=== PATIENT | male | born 1955 | race Hispanic/Latino ===

== ENCOUNTER 2016-12-07 10:30 | Outpatient (CLI) | payer MEDICARE, BC, MEDICAID ==
--- OUTSIDE RECORDS SUMMARY | 2016-12-06 05:46 | XMS REPORT | Continuity of Care Document ---
Author Author [facility] Organization [facility] Address Unknown Phone Unavailable Care Team Providers Care Photograph Tinter Name Role Phone Pao Galvan PCP [phone] Source Comments Some departments are not documenting in the electronic medical record. If you do not see the information that you expected, contact Release of Information in the Health Information Management department at [phone] for further assistance in locating additional records.[facility] Active Allergies and Adverse Reactions No Known Allergies Current Medications Prescription Sig. Disp. Refills Start End Date Status Date calcium acetate (PHOSLO) Take 2,001 mg by mouth Active 667 mg capsule three times daily with meals. 3 caps with meals, 1 cap with snacks Indications: Take 3 capsules c meals and 2 capsules c snacks glipiZIDE (GLUCOTROL) 10 Take 10 mg by mouth Active mg tablet daily. losartan(+) (COZAAR) 100 Take 100 mg by mouth Active mg tablet daily. SODIUM BICARBONATE PO Take 650 mg by mouth Active twice daily. amLODIPine (NORVASC) 10 Take 10 mg by mouth Active mg tablet daily. gabapentin (NEURONTIN) Take 300 mg by mouth Active 300 mg capsule twice daily. insulin detemir(+) Inject 20 Units into 3 box 3 05/07/20 Active (LEVEMIR FLEXTOUCH) 100 area(s) as directed 15 unit/mL (3 mL) injection daily. pen insulin lispro(+) Take 20 units for meals, 60 mL 3 05/07/20 Active (HUMALOG KWIKPEN) 100 and Add a correction 15 unit/mL injection pen factor as follows: add 4 units for glucose 150-200. 201-250, 6 units. 251-300, 8 units. 301-350, 10 units. Higher than 351, 12 units. ONETOUCH ULTRA TEST test 1 Each by Test route 400 Strip 3 05/08/20 Active strip before meals and at 15 bedtime. ONE TOUCH DELICA 33 gauge Use to test blood 4X 150 Each 11 05/08/20 Active misc daily. 15 Blood-Glucose Meter kit Use to test blood sugars 1 Each 0 05/08/20 Active 4X daily One touch ultra 15 II meter. carvedilol (COREG) 12.5 TAKE ONE TABLET BY MOUTH 180 Tab 0 11/15/19 Active mg tablet TWICE DAILY 17 hydrALAZINE (APRESOLINE) Take 25 mg by mouth Active 25 mg tablet daily. brimonidine(+) (ALPHAGAN Apply 1 Drop to both eyes Active P) 0.1 % ophthalmic twice daily. solution prednisolone acetate Apply 1 Drop to both eyes Active (PRED FORTE) 1 % twice daily. ophthalmic suspension brinzolamide(+) (AZOPT) 1 Apply 1 Drop to both eyes Active % ophthalmic suspension twice daily. timolol (TIMOPTIC) 0.5 % Apply 1 Drop to both eyes Active ophthalmic solution daily. ranitidine(+) (ZANTAC) Take 150 mg by mouth 11/22/19 Discontin 150 mg tablet twice daily. 17 ued amitriptyline (ELAVIL) 10 Take 1 Tab by mouth at 30 Tab 5 07/03/20 11/22/19 Discontin mg tablet bedtime daily. 14 17 ued insulin aspart(+) Take 20 units for meals, 6 box 3 05/07/20 Discontin (NOVOLOG) 300 units/3 mL and Add a correction 15 17 ued injection cartridge factor as follows: add 4 units for glucose 150-200. 201-250, 6 units. 251-300, 8 units. 301-350, 10 units. Higher than 351, 12 units. atorvastatin (LIPITOR) 10 TAKE ONE TABLET BY MOUTH 90 Tab 3 05/06/20 11/22/19 Discontin mg tablet ONCE DAILY 16 17 ued carvedilol (COREG) 12.5 TAKE ONE TABLET BY MOUTH 180 Tab 0 07/01/20 11/15/19 Discontin mg tablet TWICE DAILY 16 17 ued Active Problems Problem Noted Date Diabetes mellitus type 2 with complications (HCC) 05/07/2015 Coronary artery disease due to calcified coronary lesion 03/31/2015 Elevated hemidiaphragm 03/19/2015 Overview: right Abnormal stress test 03/19/2015 Ptosis 07/03/2014 Loss of vision 07/03/2014 Transplant recipient 03/23/2014 History of tobacco abuse 08/15/2012 Pre-transplant evaluation for ESRD (end stage renal disease) 08/10/2012 ESRD on hemodialysis (HCC) 06/06/2012 HTN (hypertension) 06/06/2012 Overview: March 03, 2006 Echo ([facility]): Mild conc LVH, EF 50%, diastolic dysfunction, PAP 35mmHg Jul 31, 2011 Echo ([facility]): Left atrial enlargement, trace TR, PAP 28mm Hg. Diabetes mellitus type II, non insulin dependent (HCC) 06/06/2012 Most Recent Encounters Date Type Specialty Providers Description 12/01/2016 Scan Only Transplant Surgery Mady Esparza 11/30/2016 Telephone Transplant Surgery Chelsie Nathan RN Waitlist Maintenance 11/24/2016 Documentation Transplant Surgery Heather Mann 11/24/2016 Telephone Transplant Surgery Chelsie Nathan RN Committee Review 11/23/2016 Committee Transplant Surgery Paras Cuenca MD Review 11/23/2016 Telephone Transplant Surgery Chelsie Nathan RN Other 11/22/2016 [facility] Radiology Irma Mcnair MD Encounter 11/22/2016 [facility] Radiology Irma Mcnair MD Encounter 11/22/2016 [facility] Mike Kim APRN Encounter for other Encounter preprocedural examination 11/22/2016 Office Visit Transplant Surgery William Fabian MD Pre- transplant evaluation Elvin Thompson MD for kidney transplant (Primary Dx) 11/22/2016 Office Visit Transplant Surgery Irma Mcnair MD Pre- transplant evaluation Mike Kim APRN for end stage renal disease (Primary Dx); ESRD (end stage renal disease) (HCC); Preop examination; Screening for diabetes mellitus; Special screening for malignant neoplasm of prostate; Screening for human immunodeficiency virus; Diabetes mellitus type II, non insulin dependent (HCC); Type 2 diabetes mellitus with other kidney complication (HCC) 11/17/2016 Telephone Transplant Surgery Negra Mendez Financial/ Insurance Questions - INSURANCE COVERAGE FINANCIAL INFORMATION 11/17/2016 Telephone Transplant Surgery Negra Mendez 11/15/2016 Refill Cardiology Reg Francis MD Medication Refill 11/01/2016 Scan Only Transplant Surgery Mady Esparza 10/25/2016 Telephone Transplant Surgery Chelsie Nathan RN Other - Waitlist Status Review 10/20/2016 Orders Only Transplant Surgery Shahla Anderson RN Pre- transplant evaluation for end stage renal disease (Primary Dx) 10/20/2016 Telephone Transplant Surgery Shahla Anderson RN Other - erroneous encounter 10/19/2016 Documentation Transplant Surgery Heather Mann 10/18/2016 Telephone Transplant Surgery Shahla Anderson RN Other - Waitlist Review Letter 10/14/2016 Documentation Transplant Surgery MikeRebeca [email or web address] 10/12/2016 Documentation Transplant Surgery Heather Mann 09/22/2016 Telephone Cardiology Stella Quinn RN Medication Refill - Hydralazine - deferred to PCP to fill 09/21/2016 Refill Cardiology Bouchra Yeh LPN Erroneous encounter-disregard Social History Tobacco Use Types Packs/Day Years Used Date Former Smoker Cigarettes 0.25 25 Quit: 08/10/2010 Smokeless Tobacco: Never Used Tobacco Cessation: Counseling Given: No Comments: Alcohol Use Drinks/Week oz/Week Comments No hx social drinking Last Filed Vital Signs Vital Sign Reading Time Taken Blood Pressure 118/61 11/22/2016 7:59 AM PATROL JUDGE Pulse 85 11/22/2016 7:59 AM PATROL JUDGE Temperature 36.9 C (98.4 F) 11/22/2016 7:58 AM PATROL JUDGE Respiratory Rate - - Height 1.676 m (5' 6") 11/22/2016 7:58 AM PATROL JUDGE Weight 97.478 kg (214 lb 14.4 11/22/2016 7:58 AM PATROL JUDGE oz) Body Mass Index 34.7 11/22/2016 7:58 AM PATROL JUDGE Oxygen Saturation 95% 11/22/2016 7:58 AM PATROL JUDGE Plan of Care Date Type Specialty Providers Description 01/05/2017 Appointment Gastroenterology Alysha Chase MD [address] [facility] [address] [place] [address] [phone] (Fax) Health Maintenance Due Date Last Done Comments Physical (Comprehensive) 1962 Exam Pertussis Vaccine 1966 Tetanus Vaccine 1972 Microalbumin 1973 Pneumonia Vaccine (Dm) 1973 Colorectal Cancer 2005 Screening Shingles Vaccine 2015 Dilated Eye Exam 04/23/2016 04/23/2015 (Previously completed) Influenza Vaccine 07/14/2016 Foot Exam 07/16/2016 07/16/2015, 05/07/2015, 05/07/2015 Hba1c 05/22/2017 11/22/2016, 07/16/2015, 05/07/2015 Additional history exists Hepatitis C Screening Completed 11/22/2016, 10/02/2012 Results from Last 3 Months CHEST 2 VIEWS (11/22/2016 12:47 PM) Impressions Stable elevation of right hemidiaphragm with right pleural thickening. No radiographic evidence of acute cardiopulmonary disease. Finalized by Lorna Link M.D. on 11/22/2016 12:58 PM. Dictated by Lorna Link M.D. on 11/22/2016 12:56 PM. Narrative CHEST 2 VIEWS Indication: Pre transplant. Comparison: January 27, 2015 Findings: The heart and pulmonary vasculature are unremarkable. There is stable elevation of the right hemidiaphragm with blunting of the right costophrenic angle compatible with pleural thickening. No consolidative infiltrate, gross pleural effusion or pneumothorax is identified. There are degenerative changes in the thoracic spine. Procedure Note Interface, Radiant Results - Tue Nov 22, 2016 1:01 PM PATROL JUDGE CHEST 2 VIEWS Indication: Pre transplant. Comparison: January 27, 2015 Findings: The heart and pulmonary vasculature are unremarkable. There is stable elevation of the right hemidiaphragm with blunting of the right costophrenic angle compatible with pleural thickening. No consolidative infiltrate, gross pleural effusion or pneumothorax is identified. There are degenerative changes in the thoracic spine. IMPRESSION Stable elevation of right hemidiaphragm with right pleural thickening. No radiographic evidence of acute cardiopulmonary disease. Finalized by Lorna Link M.D. on 11/22/2016 12:58 PM. Dictated by Lorna Link M.D. on 11/22/2016 12:[address] ABD/PELV WO CONTRAST (11/22/2016 12:35 PM) Impressions 1. No significant aortoiliac calcified plaque. 2. Bilateral renal atrophy consistent with the patient's end-stage renal disease. 3. Coronary artery disease. Finalized by Marva Strauss M.D. on 11/22/2016 1:00 PM. Dictated by Marva Strauss M.D. on 11/22/2016 12:[address] ABDOMEN AND PELVIS Clinical Indication:Male, 61 years old. End-stage renal disease, pretransplant evaluation. Technique: Multiple contiguous axial CT images were obtained through the abdomen and pelvis without IV contrast. Post processing coronal and sagittal reconstruction images were made from the axial images. IV contrast: None. Bowel contrast:None. Comparison: January 27, 2015. FINDINGS: Limited evaluation without the use of IV contrast which includes the viscera and vasculature. Lower Thorax: There is chronic elevation of the right hemidiaphragm. No pleural effusion or basilar area of consolidation is identified. Coronary arterial and mitral annular calcification is noted. Liver and Biliary system: The liver is unremarkable. Gallbladder is nondilated. Spleen: Unremarkable. Adrenal Glands and Kidneys: The adrenal glands are unremarkable. There is bilateral renal atrophy without hydronephrosis. Low-density bilateral renal lesions are likely cysts, though incompletely evaluated without contrast. Pancreas and Retroperitoneum: The pancreas is unremarkable. No enlarged retroperitoneal lymph nodes are seen. Aorta and Major Vessels: Aortoiliac vessels are normal caliber without significant calcified plaque identified. Bowel, Mesentery and Peritoneal space: Large and small bowel is normal caliber. Mild distal colonic diverticulosis is identified. No ascites is identified. Previous appendectomy is noted. Pelvis: The prostate is mildly enlarged. The bladder is decompressed and poorly evaluated. No enlarged pelvic lymph nodes are seen. Abdominal wall and Osseous Structures: Small bilateral fat-containing inguinal hernias are noted. There is mild bilateral symmetric gynecomastia. No destructive osseous lesion is identified. Sclerotic foci within the left iliac wing are unchanged and likely bone islands. Procedure Note Interface, Radiant Results - Tue Nov 22, 2016 1:[address] ABDOMEN AND PELVIS Clinical Indication: Male, 61 years old. End-stage renal disease, pretransplant evaluation. Technique: Multiple contiguous axial CT images were obtained through the abdomen and pelvis without IV contrast. Post processing coronal and sagittal reconstruction images were made from the axial images. IV contrast: None. Bowel contrast: None. Comparison: January 27, 2015. FINDINGS: Limited evaluation without the use of IV contrast which includes the viscera and vasculature. Lower Thorax: There is chronic elevation of the right hemidiaphragm. No pleural effusion or basilar area of consolidation is identified. Coronary arterial and mitral annular calcification is noted. Liver and Biliary system: The liver is unremarkable. Gallbladder is nondilated. Spleen: Unremarkable. Adrenal Glands and Kidneys: The adrenal glands are unremarkable. There is bilateral renal atrophy without hydronephrosis. Low-density bilateral renal lesions are likely cysts, though incompletely evaluated without contrast. Pancreas and Retroperitoneum: The pancreas is unremarkable. No enlarged retroperitoneal lymph nodes are seen. Aorta and Major Vessels: Aortoiliac vessels are normal caliber without significant calcified plaque identified. Bowel, Mesentery and Peritoneal space: Large and small bowel is normal caliber. Mild distal colonic diverticulosis is identified. No ascites is identified. Previous appendectomy is noted. Pelvis: The prostate is mildly enlarged. The bladder is decompressed and poorly evaluated. No enlarged pelvic lymph nodes are seen. Abdominal wall and Osseous Structures: Small bilateral fat-containing inguinal hernias are noted. There is mild bilateral symmetric gynecomastia. No destructive osseous lesion is identified. Sclerotic foci within the left iliac wing are unchanged and likely bone islands. IMPRESSION 1. No significant aortoiliac calcified plaque. 2. Bilateral renal atrophy consistent with the patient's end-stage renal disease. 3. Coronary artery disease. Finalized by Marva Strauss M.D. on 11/22/2016 1:00 PM. Dictated by Marva Strauss M.D. on 11/22/2016 12:49 PM. GGTP (11/22/2016 11:54 AM) Component Value Range GGTP 17 9-64 U/L Specimen Blood RED TOP TUBE FOR MTN TRANSPLANT (11/22/2016 11:54 AM) Specimen Blood LIPASE (11/22/2016 11:54 AM) Component Value Range Lipase 773 (H) 11-82 U/L Specimen Blood AMYLASE (11/22/2016 11:54 AM) Component Value Range Amylase 225 (H) 24-100 U/L Specimen Blood HEMOGLOBIN A1C (11/22/2016 11:54 AM) Component Value Range Hemoglobin A1C 7.3 (H)Comment: 4.0-6.0 % The ADA recommends that most patients with type 1 and type 2 diabetes maintain an A1c level <7%. Specimen Blood PHENCYCLIDINES-URINE RANDOM (11/22/2016 11:54 AM) Component Value Range Phencyclidine (PCP) NEGComment: NEG-NEG RESULTS WERE OBTAINED BY IMMUNOASSAY AND ARE PRESUMPTIVE ONLY. POSITIVE INDICATES THE PRESENCE OF SUBSTANCE WITH CHARACTERISTICS SIMILAR TO DRUG-DRUG CLASS OR METABOLITE IN CONC. EQUAL TO OR EXCEEDING VALUES LISTED. PHENCYCLIDINE (PCP) 25 NG/ML Specimen Urine OPIATES-URINE RANDOM (11/22/2016 11:54 AM) Component Value Range Opiates-Urine NEGComment: NEG-NEG RESULTS WERE OBTAINED BY IMMUNOASSAY AND ARE PRESUMPTIVE ONLY. POSITIVE INDICATES THE PRESENCE OF SUBSTANCE WITH CHARACTERISTICS SIMILAR TO DRUG-DRUG CLASS OR METABOLITE IN CONC. EQUAL TO OR EXCEEDING VALUES LISTED. OPIATES 200 0 NG/ML Specimen Urine COCAINE-URINE RANDOM (11/22/2016 11:54 AM) Component Value Range Cocaine-Urine NEGComment: NEG-NEG RESULTS WERE OBTAINED BY IMMUNOASSAY AND ARE PRESUMPTIVE ONLY. POSITIVE INDICATES THE PRESENCE OF SUBSTANCE WITH CHARACTERISTICS SIMILAR TO DRUG-DRUG CLASS OR METABOLITE IN CONC. EQUAL TO OR EXCEEDING VALUES LISTED. COCAINE 300 NG/ML Specimen Urine CANNABINOIDS-URINE RANDOM (11/22/2016 11:54 AM) Component Value Range THC NEGComment: NEG-NEG RESULTS WERE OBTAINED BY IMMUNOASSAY AND ARE PRESUMPTIVE ONLY. POSITIVE INDICATES THE PRESENCE OF SUBSTANCE WITH CHARACTERISTICS SIMILAR TO DRUG-DRUG CLASS OR METABOLITE IN CONC. EQUAL TO OR EXCEEDING VALUES LISTED. CANNABINOIDS 50 NG/ML Specimen Urine BENZODIAZEPINES-URINE RANDOM (11/22/2016 11:54 AM) Component Value Range Benzodiazepines NEGComment: NEG-NEG RESULTS WERE OBTAINED BY IMMUNOASSAY AND ARE PRESUMPTIVE ONLY. POSITIVE INDICATES THE PRESENCE OF SUBSTANCE WITH CHARACTERISTICS SIMILAR TO DRUG-DRUG CLASS OR METABOLITE IN CONC. EQUAL TO OR EXCEEDING VALUES LISTED. BENZODIAZEPINES 200 NG/ML Specimen Urine BARBITURATES-URINE RANDOM (11/22/2016 11:54 AM) Component Value Range Barbiturates,Urine NEGComment: NEG-NEG RESULTS WERE OBTAINED BY IMMUNOASSAY AND ARE PRESUMPTIVE ONLY. POSITIVE INDICATES THE PRESENCE OF SUBSTANCE WITH CHARACTERISTICS SIMILAR TO DRUG-DRUG CLASS OR METABOLITE IN CONC. EQUAL TO OR EXCEEDING VALUES LISTED. BARBITURATES 200 NG/ML Specimen Urine AMPHETAMINES-URINE RANDOM (11/22/2016 11:54 AM) Component Value Range Amphetamines NEGComment: NEG-NEG RESULTS WERE OBTAINED BY IMMUNOASSAY AND ARE PRESUMPTIVE ONLY. POSITIVE INDICATES THE PRESENCE OF SUBSTANCE WITH CHARACTERISTICS SIMILAR TO DRUG-DRUG CLASS OR METABOLITE IN CONC. EQUAL TO OR EXCEEDING VALUES LISTED. AMPHETAMINES 1000 NG/ML Specimen Urine PSA SCREEN (11/22/2016 11:54 AM) Component Value Range PSA Screen 2.08 <4.0 NG/ML Specimen Blood URINALYSIS, MICROSCOPIC (11/22/2016 11:54 AM) Component Value Range WBCs,UA 0-2 0-2 /HPF RBCs,UA 2-10 0-3 /HPF MucousUA TRACE Specimen Urine URINALYSIS DIPSTICK (11/22/2016 11:54 AM) Component Value Range Color,UA YELLOW Turbidity,UA CLEAR CLEAR-CLEAR Specific [place]-Urine 1.012 1.003-1.035 pH,UA 8.0 5.0-8.0 Protein,UA 3+ (A) NEG-NEG Glucose,UA 2+ (A) NEG-NEG Ketones,UA NEG NEG-NEG Bilirubin,UA NEG NEG-NEG Blood,UA NEG NEG-NEG Urobilinogen,UA NORMAL NORM-NORMAL Nitrite,UA NEG NEG-NEG Leukocytes,UA NEG NEG-NEG Urine Ascorbic Acid, UA NEG NEG-NEG Specimen Urine SYPHILIS AB SCREEN (11/22/2016 11:54 AM) Component Value Range Syphilis AB, Total NEGComment: NEG-NEG Negative EIA: Negative results indicate no past or present syphilis infection. Early infection can not be excluded. Specimen Blood PROTIME INR (PT) (11/22/2016 11:54 AM) Component Value Range INR 1.1 0.8-1.2 Specimen Blood PHOSPHORUS (11/22/2016 11:54 AM) Component Value Range Phosphorus 5.8 (H) 2.0-4.0 MG/DL Specimen Blood HSV I/II GLYCOPROTEIN G AB (11/22/2016 11:54 AM) Component Value Range HSV Type 1 IgG POS (A) NEG-NEG HSV Type 2 IgG NEG NEG-NEG Specimen Blood HIV AB SCREEN(1 AND 2) (11/22/2016 11:54 AM) Component Value Range HIV 1 and 2 AG AB Screen NEG NEG-NEG Specimen Blood HEPATITIS C AB (11/22/2016 11:54 AM) Component Value Range Anti HCV NEG Specimen Blood HEPATITIS B SURFACE AG (11/22/2016 11:54 AM) Component Value Range HBsAg NEG Specimen Blood HEPATITIS B SURFACE AB (11/22/2016 11:54 AM) Component Value Range Anti HBs 3.2Comment: mIU/ml Hepatitis B Surface Antibody Reference Ranges >12.0 Positive 8.0-12.0 Equivocal <8.0 Negative Specimen Blood HEPATITIS B CORE AB TOT (IGG+IGM) (11/22/2016 11:54 AM) Component Value Range Anti HBc Total NEG Specimen Blood [place]AN [place] PANEL(EBV) (11/22/2016 11:54 AM) Component Value Range EBV Capsid IgG POS EBV Nuclear Ag,Ab POS EBV Early Ag,Ab NEG EBV Capsid IgM NEG Specimen Blood COMPREHENSIVE METABOLIC PANEL (11/22/2016 11:54 AM) Component Value Range Sodium 138 137-147 MMOL/L Potassium 4.6 3.5-5.1 MMOL/L Chloride 94 (L) 98-110 MMOL/L Glucose 142 (H) 70-100 MG/DL Blood Urea Nitrogen 43 (H) 7-25 MG/DL Creatinine 7.15 (H) 0.4-1.24 MG/DL Calcium 8.8 8.5-10.6 MG/DL Total Protein 7.9 6.0-8.0 G/DL Total Bilirubin 0.4 0.3-1.2 MG/DL Albumin 4.3 3.5-5.0 G/DL Alk Phosphatase 68 25-110 U/L AST (SGOT) 17 7-40 U/L CO2 34 (H) 21-30 MMOL/L ALT (SGPT) 22 7-56 U/L Anion Gap 10 3-12 eGFR Non 8 (L)Comment: >60 mL/min The eGFR is not validated for use in drug dosing adjustments. Continue to use estimated creatinine clearance per dosing reference text. Please contact the Clinical Pharmacist for questions. eGFR 9 (L)Comment: >60 mL/min The eGFR is not validated for use in drug dosing adjustments. Continue to use estimated creatinine clearance per dosing reference text. Please contact the Clinical Pharmacist for questions. Specimen Blood CMV AB IGM (11/22/2016 11:54 AM) Component Value Range CMV, IgM NEG Specimen Blood CMV AB IGG (11/22/2016 11:54 AM) Component Value Range CMV, IgG POS Specimen Blood CBC AND DIFF (11/22/2016 11:54 AM) Component Value Range White Blood Cells 6.5 4.5-11.0 K/UL RBC 3.55 (L) 4.4-5.5 M/UL Hemoglobin 11.3 (L) 13.5-16.5 GM/DL Hematocrit 34.7 (L) 40-50 % MCV 97.7 80-100 FL MCH 31.9 26-34 PG MCHC 32.7 32.0-36.0 G/DL RDW 14.6 11-15 % Platelet Count 159 150-400 K/UL MPV 8.4 7-11 FL Neutrophils 44 41-77 % Lymphocytes 42 24-44 % Monocytes 10 4-12 % Eosinophils 3 0-5 % Basophils 1 0-2 % Absolute Neutrophil Count 2.90 1.8-7.0 K/UL Absolute Lymph Count 2.70 1.0-4.8 K/UL Absolute Monocyte Count 0.60 0-0.80 K/UL Absolute Eosinophil Count 0.20 0-0.45 K/UL Absolute Basophil Count 0.00 0-0.20 K/UL Specimen Blood
[~2016-12-07] VITALS: Ht 167.6 cm; Wt 95.3 kg
[~2016-12-07 10:30] MED LIST: ACET1TAB12; ACYC800T PO; AMLO10TA PO; AMLO10TA4; AZTH250C PO; BENZ200C25 PO; BRIM5DRO12 OP; BRIM5DRO12 OU; BUTA1TAB55 PO; CALC0.253; CALC0.5C2 PO; CALC500T47 PO; CALC667C PO; CALCIUM ACETATE PO; CARV6.252 PO; CLN.1T; CSPT25 OD; CYCL10TA9 PO; DORZ10DR19 OD; FERR27TA PO; FLT05NA16 NS; GABA-488 PO; GENT3.5O18 OU; GLIP10TA13 PO; GLIP2.5T9 PO; HYDR-707 PO; HYDR118S10 PO; INSU100I13 SQ; INSU100I29 SQ; LATA2.5D5 OU; LEVO250T PO; LISI-556; LISI20TA; LISI20TA2; LOSA100T7 PO; LOSA50TA6 PO; METF-380; METO-354; METR250T PO; MTP25TSR PO; NAPR-243 PO; NF-PREG50C PO; NORT25CA PO; OMEP20CA12 PO; ONDA8TAB13 PO; ONDA8TAB6; OSLT75CRX PO; PRD20T PO; PROM5SYR PO; PROP10DR3 OP; RANI150C11 PO; SODIUM BICAR; SODIUM BICARB; TIMO10DR; TRM50T
--- OUTSIDE RECORDS SUMMARY | 2016-12-07 10:56 | XMS REPORT | Continuity of Care Document ---
Author Author [facility] Organization [facility] Address Unknown Phone Unavailable Care Team Providers Care Powder Line Repairer Name Role Phone Pao Galvan PCP [phone] Source Comments Some departments are not documenting in the electronic medical record. If you do not see the information that you expected, contact Release of Information in the Health Information Management department at [phone] for further assistance in locating additional records.[facility] Active Allergies and Adverse Reactions No Known [...] (hypertension) 06/06/2012 Overview: March 03, 2006 Echo ([facility]): Mild conc LVH, EF 50%, diastolic dysfunction, PAP 35mmHg Jul 31, 2011 Echo ([facility]): Left atrial enlargement, trace TR, PAP [...] Transplant Surgery Chelsie Nathan RN Other 11/22/2016 [facility] Radiology Irma Mcnair MD Encounter 11/22/2016 [facility] Radiology Irma Mcnair MD Encounter 11/22/2016 [facility] Mike Kim APRN Encounter for other [...] Taken Blood Pressure 118/61 11/22/2016 7:59 AM CPA TAX Pulse 85 11/22/2016 7:59 AM CPA TAX Temperature 36.9 C (98.4 F) 11/22/2016 7:58 AM CPA TAX Respiratory Rate - - Height 1.676 m (5' 6") 11/22/2016 7:58 AM CPA TAX Weight 97.478 kg (214 lb 14.4 11/22/2016 7:58 AM CPA TAX oz) Body Mass Index 34.7 11/22/2016 7:58 AM CPA TAX Oxygen Saturation 95% 11/22/2016 7:58 AM CPA TAX Plan of Care Date Type Specialty Providers Description 01/05/2017 Appointment Gastroenterology Alysha Chase MD [address] [facility] [address] [place] [address] [phone] (Fax) Health Maintenance Due Date Last Done [...] - Tue Nov 22, 2016 1:01 PM CPA TAX CHEST 2 VIEWS Indication: Pre transplant. Comparison: [...] - Tue Nov 22, 2016 1:[address] ABDOMEN AND PELVIS Clinical Indication: Male, [...] Range Color,UA YELLOW Turbidity,UA CLEAR CLEAR-CLEAR Specific [place]-Urine 1.012 1.003-1.035 pH,UA 8.0 5.0-8.0 Protein,UA 3+ [...]
== END 2016-12-07 10:54 ==
LOC: PREOP 10:30
PROVIDERS: ATTEND Surgery
DX: Z01.818 Encounter for other preprocedural examination (principal); Z12.11 Encounter for screening for malignant neoplasm of colon

== ENCOUNTER 2016-12-08 08:15 | Day surgery (SDC) | payer MEDICARE, MEDICAID ==
[~2016-12-08] VITALS: Ht 167.6 cm; Wt 95.3 kg
--- OUTSIDE RECORDS SUMMARY | 2016-12-08 08:21 | XMS REPORT | Continuity of Care Document ---
Author Author [facility] Organization [facility] Address Unknown Phone Unavailable Care Team Providers Care Staff Forester Name Role Phone Pao Galvan PCP [phone] Source Comments Some departments are not documenting in the electronic medical record. If you do not see the information that you expected, contact Release of Information in the Health Information Management department at [phone] for further assistance in locating additional records.[facility] Active Allergies and Adverse Reactions No [...] (hypertension) 06/06/2012 Overview: March 03, 2006 Echo ([facility]): Mild conc LVH, EF 50%, diastolic dysfunction, PAP 35mmHg Jul 31, 2011 Echo ([facility]): Left atrial enlargement, trace TR, PAP 28mm [...] Transplant Surgery Chelsie Nathan RN Other 11/22/2016 [facility] Radiology Irma Mcnair MD Encounter 11/22/2016 [facility] Radiology Irma Mcnair MD Encounter 11/22/2016 [facility] Mike Kim APRN Encounter for other [...] Taken Blood Pressure 118/61 11/22/2016 7:59 AM ENGLISH LECTURER Pulse 85 11/22/2016 7:59 AM ENGLISH LECTURER Temperature 36.9 C (98.4 F) 11/22/2016 7:58 AM ENGLISH LECTURER Respiratory Rate - - Height 1.676 m (5' 6") 11/22/2016 7:58 AM ENGLISH LECTURER Weight 97.478 kg (214 lb 14.4 11/22/2016 7:58 AM ENGLISH LECTURER oz) Body Mass Index 34.7 11/22/2016 7:58 AM ENGLISH LECTURER Oxygen Saturation 95% 11/22/2016 7:58 AM ENGLISH LECTURER Plan of Care Date Type Specialty Providers Description 01/05/2017 Appointment Gastroenterology Alysha Chase MD [address] [facility] [address] [place] [address] [phone] (Fax) Health Maintenance Due Date Last Done [...] - Tue Nov 22, 2016 1:01 PM ENGLISH LECTURER CHEST 2 VIEWS Indication: Pre transplant. Comparison: [...] - Tue Nov 22, 2016 1:[address] ABDOMEN AND PELVIS Clinical Indication: Male, [...] Range Color,UA YELLOW Turbidity,UA CLEAR CLEAR-CLEAR Specific [place]-Urine 1.012 1.003-1.035 pH,UA 8.0 5.0-8.0 Protein,UA 3+ [...]
--- OUTSIDE RECORDS SUMMARY | 2016-12-08 08:21 | XMS REPORT | Continuity of Care Document ---
Author Author [facility] Organization [facility] Address Unknown Phone Unavailable Care Team Providers Care Freight Car Inspector Name Role Phone Pao Galvan PCP [phone] Source Comments Some departments are not documenting in the electronic medical record. If you do not see the information that you expected, contact Release of Information in the Health Information Management department at [phone] for further assistance in locating additional records.[facility] Active Allergies and Adverse Reactions No [...] (hypertension) 06/06/2012 Overview: March 03, 2006 Echo ([facility]): Mild conc LVH, EF 50%, diastolic dysfunction, PAP 35mmHg Jul 31, 2011 Echo ([facility]): Left atrial enlargement, trace TR, [...] Transplant Surgery Chelsie Nathan RN Other 11/22/2016 [facility] Radiology Irma Mcnair MD Encounter 11/22/2016 [facility] Radiology Irma Mcnair MD Encounter 11/22/2016 [facility] Mike Kim APRN Encounter for other [...] Taken Blood Pressure 118/61 11/22/2016 7:59 AM TRADE SHOW SPECIALIST Pulse 85 11/22/2016 7:59 AM TRADE SHOW SPECIALIST Temperature 36.9 C (98.4 F) 11/22/2016 7:58 AM TRADE SHOW SPECIALIST Respiratory Rate - - Height 1.676 m (5' 6") 11/22/2016 7:58 AM TRADE SHOW SPECIALIST Weight 97.478 kg (214 lb 14.4 11/22/2016 7:58 AM TRADE SHOW SPECIALIST oz) Body Mass Index 34.7 11/22/2016 7:58 AM TRADE SHOW SPECIALIST Oxygen Saturation 95% 11/22/2016 7:58 AM TRADE SHOW SPECIALIST Plan of Care Date Type Specialty Providers Description 01/05/2017 Appointment Gastroenterology Alysha Chase MD [address] [facility] [address] [place] [address] [phone] (Fax) Health Maintenance Due Date Last Done [...] - Tue Nov 22, 2016 1:01 PM TRADE SHOW SPECIALIST CHEST 2 VIEWS Indication: Pre transplant. Comparison: [...] - Tue Nov 22, 2016 1:03 [address] TRADE SHOW SPECIALIST CT ABDOMEN AND PELVIS Clinical Indication: Male, [...] Range Color,UA YELLOW Turbidity,UA CLEAR CLEAR-CLEAR Specific [place]-Urine 1.012 1.003-1.035 pH,UA 8.0 5.0-8.0 Protein,UA 3+ [...]
[2016-12-08 08:30] VITALS: BP 150/86
[2016-12-08] MEDS ORDERED: NALOXONE 0.4 MG/ML 1 ML (NARCAN) VIAL IVP PRN (08:30)
[2016-12-08] MEDS ORDERED: fentaNYL INJECTION 100 MCG/2 ML AMP IVP PRN (08:30)
[2016-12-08] MEDS ORDERED: NS IV 500 ML 500 ML IV PRN (08:30)
[2016-12-08] MEDS ORDERED: FLUMAZENIL (ROMAZICON) 0.1 MG/ML 5 ML VIAL INJ PRN (08:30)
[2016-12-08] MEDS ORDERED: MIDAZOLAM 2 MG/2 ML (VERSED) VIAL ONE ×2 (08:52→08:53)
[2016-12-08] MEDS ORDERED: fentaNYL INJECTION 100 MCG/2 ML AMP ONE (08:53)
[2016-12-08] MEDS: MIDAZOLAM 2 MG/2 ML (VERSED) VIAL IVP PRN ×2 (09:07→09:12)
--- NOTE | 2016-12-08 09:12 | Pre-Op Note & Conscious Sedat ---
Pre-Operative Progress Note H&P Reviewed The H&P was reviewed, patient examined and no changes noted. Date H&P Reviewed: Dec 08, 2016 Time H&P Reviewed: 09:11 Pre-Op Diagnosis: sscreening Conscious Sedation Pre-Proced ASA Class: 3 Airway Mallampati Classification: ([place] appropriate class) I. II. III, IV Lungs Heart ASA score ASA 1: a normal healthy patient ASA 2: a patient with a mild systemic disease (mid diabetes, controlled hypertension, obesity ASA 3: a patient with a severe systemic disease that limits activity (angina , COPD, prior Myocardial infarction) ASA 4: a patient with an incapacitating disease that is a constant threat to life (CHF, renal failure) ASA 5: a moribund patient not expected to survive 24 hrs. (ruptured aneurysm) ASA 6: a declared brain patient whose organs are being harvested. For emergent operations, add the letter E after the classification Grade 2 Sedation Plan: Discussed options with patient/fam Note The patient is an appropriate candidate to undergo the planned procedure, sedation, and anesthesia. The patient immediately re-assessed prior to indication. ANAT ARRIETA MD Dec 08, 2016 9:12 am
--- NOTE | 2016-12-08 09:23 | Progress Note-Post Operative ---
Post-Operative Progess Note Pre-Operative Diagnosis screening Post-Operative Diagnosis very few, scattered sigmoid diverticula Post-Op Procedure Note Date of Procedure: Dec 08, 2016 Name of Procedure: colonoscopy to cecum Anesthesia Type sedation ANAT ARRIETA MD Dec 08, 2016 9:22 am
--- NOTE | 2016-12-08 09:26 | Discharge Inst-Simple/Standard ---
Discharge Inst-Standard Discharge Medications New, Converted or Re-Newed RX: Other Patient Instructions/Follow Up Plan of Care/Instructions/FU: follow-up with his primary Activity as Tolerated: Yes Discharge Diet: No Restrictions ANAT ARRIETA MD Dec 08, 2016 9:26 am
[2016-12-08 09:35] VITALS: BP 138/75
[2016-12-08 10:05] VITALS: BP 155/91
[2016-12-08 10:08] VITALS: BP 155/91
--- NOTE | 2016-12-09 08:18 | PROCEDURE REPORT ---
PROCEDURE PHYSICIAN: ANAT ARRIETA DATE OF PROCEDURE: 12/08/2016 PROCEDURE: Screening colonoscopy. SURGEON: Aquiles. INDICATION FOR THE PROCEDURE: This gentleman, who is likely to be placed on renal transplant waiting list, came in for screening colonoscopy. An informed consent was obtained after reviewing the procedure in detail. DESCRIPTION OF PROCEDURE: He was placed in the left lateral decubitus position and his vital signs were monitored. Conscious sedation was achieved using Versed and fentanyl. The flexible colonoscope was then introduced into the rectum and advanced all the way up to the cecum. The scope was then withdrawn slowly and the mucosa examined in a systematic fashion. FINDINGS: 1. Very few scattered sigmoid diverticula. 2. No polyps were found. He tolerated the procedure well and was taken back to the nursing area in a stable condition. IMPRESSION: 1. Screening colonoscopy. 2. No polyps Job ID: [id number] Dictated Date: 12/08/2016 09:22:29 Tack Picker Date: 12/09/2016 08:15:09 / justice
== END 2016-12-08 10:16 | disposition home or self-care (01) ==
LOC: ENDO 08:15
PROVIDERS: ATTEND Surgery
DX: Z12.11 Encounter for screening for malignant neoplasm of colon (principal); K57.30 Diverticulosis of large intestine without perforation or abscess without bleeding

== ENCOUNTER 2019-04-22 08:59 | Emergency (ER) | payer MEDICARE, MEDICAID ==
[~2019-04-22] VITALS: Ht 167.6 cm; Wt 89.4 kg
--- OUTSIDE RECORDS SUMMARY | 2019-04-22 09:24 | XMS REPORT | Clinical Summary ---
Author Author [facility] Organization [facility] Address Unknown Phone Unavailable Care Team Providers Care Data Warehouse Developer Name Role Phone PCP Unavailable Allergies Not on File Current Medications Not on file Active Problems Not on file Social History Tobacco Use Types Packs/Day Years Used Date Never Assessed Sex Assigned at Date Recorded Not on file Last Filed Vital Signs Not on file Plan of Treatment Not on file Results Not on filefrom Last 3 Months
--- OUTSIDE RECORDS SUMMARY | 2019-04-22 09:27 | XMS REPORT | Continuity of Care Document ---
Author Organization Unknown Address Unknown Allergies Active Description Code Type Severity Reaction Onset Reported/Identified Relationship to Patient Clinical Status Yes No Known Drug Allergies [id number] Drug Allergy Unknown N/A 06/27/2007 Medications There is no data. Problems Date Dx Coded Attending Type Code Diagnosis Diagnosed By 06/05/2008 CRISTIN PIERRE APRNNDA S 250.02 DIABETES MELLITUS POORLY CONTROLLED 06/05/2008 IGNACIO ALVAREZ KELTON S 466.0 Bronchitis, Acute 06/05/2008 250.02 DIABETES MELLITUS POORLY CONTROLLED 06/05/2008 466.0 Bronchitis, Acute 06/05/2008 BROCK SEVILLA DO K 250.02 DIABETES MELLITUS POORLY CONTROLLED 06/05/2008 BROCK SEVILLA DO K 466.0 Bronchitis, Acute 06/05/2008 BROCK SEVILLA DO K 250.02 DIABETES MELLITUS POORLY CONTROLLED 06/05/2008 BROCK SEVILLA DO K 466.0 Bronchitis, Acute 06/05/2008 250.02 DIABETES MELLITUS POORLY CONTROLLED 06/05/2008 466.0 Bronchitis, Acute 06/05/2008 IGNACIO ALVAREZ, KELTON S 250.02 DIABETES MELLITUS POORLY CONTROLLED 06/05/2008 IGNACIO ALVAREZ, KELTON S 466.0 Bronchitis, Acute 06/05/2008 IGNACIO ALVAREZ KELTON S 250.02 DIABETES MELLITUS POORLY CONTROLLED 06/05/2008 IGNACIO ALVAREZ KELTON S 466.0 Bronchitis, Acute 06/05/2008 IGNACIO ALVAREZ KELTON S 250.02 DIABETES MELLITUS POORLY CONTROLLED 06/05/2008 IGNACIO ALVAREZ KELTON S 466.0 Bronchitis, Acute 06/05/2008 DARRYL HARVEY MD 250.02 DIABETES MELLITUS POORLY CONTROLLED 06/05/2008 DARRYL HARVEY MD 466.0 Bronchitis, Acute 06/05/2008 IGNACIO ALVAREZ KELTON S 250.02 DIABETES MELLITUS POORLY CONTROLLED 06/05/2008 IGNACIO CLIENT FINANCE ANALYST, KELTON S 466.0 Bronchitis, Acute 06/05/2008 250.02 DIABETES MELLITUS POORLY CONTROLLED 06/05/2008 466.0 Bronchitis, Acute 06/05/2008 IGNACIO CLIENT FINANCE ANALYST, KELTON S 250.02 DIABETES MELLITUS POORLY CONTROLLED 06/05/2008 IGNACIO CLIENT FINANCE ANALYST, KELTON S 466.0 Bronchitis, Acute 06/05/2008 IGNACIO CLIENT FINANCE ANALYST, KELTON S 250.02 DIABETES MELLITUS POORLY CONTROLLED 06/05/2008 IGNACIO CLIENT FINANCE ANALYST, KELTON S 466.0 Bronchitis, Acute 06/05/2008 IGNACIO CLIENT FINANCE ANALYST, KELTON S 250.02 DIABETES MELLITUS POORLY CONTROLLED 06/05/2008 IGNACIO CLIENT FINANCE ANALYST, KELTON S 466.0 Bronchitis, Acute 06/05/2008 SEV[place]A DO, BROCK K 250.02 DIABETES MELLITUS POORLY CONTROLLED 06/05/2008 SE[place] DO, BROCK K 466.0 Bronchitis, Acute 06/05/2008 SE[place]A DO, BROCK K 250.02 DIABETES MELLITUS POORLY CONTROLLED 06/05/2008 SEV[place]A DO, BROCK K 466.0 Bronchitis, Acute 01/16/2009 IGNACIO CLIENT FINANCE ANALYST, KELTON S 729.81 Swelling Of Limb 01/16/2009 729.81 Swelling Of Limb 01/16/2009 SEV[place]A DO, BROCK K 729.81 Swelling Of Limb 01/16/2009 SEV[place]A DO, BROCK K 729.81 Swelling Of Limb 01/16/2009 729.81 Swelling Of Limb 01/16/2009 IGNACIO CLIENT FINANCE ANALYST, KELTON S 729.81 Swelling Of Limb 01/16/2009 IGNACIO CLIENT FINANCE ANALYST, KELTON S 729.81 Swelling Of Limb 01/16/2009 IGNACIO CLIENT FINANCE ANALYST, KELTON S 729.81 Swelling Of Limb 01/16/2009 CANDICE MIRANDA, DARRYL 729.81 Swelling Of Limb 01/16/2009 IGNACIO CLIENT FINANCE ANALYST, KELTON S 729.81 Swelling Of Limb 01/16/2009 729.81 Swelling Of Limb 01/16/2009 IGNACIO CLIENT FINANCE ANALYST, KELTON S 729.81 Swelling Of Limb 01/16/2009 IGNACIO CLIENT FINANCE ANALYST, KELTON S 729.81 Swelling Of Limb 01/16/2009 IGNACIO CLIENT FINANCE ANALYST, KELTON S 729.81 Swelling Of Limb 01/16/2009 SE[place] DO, BROCK K 729.81 Swelling Of Limb 01/16/2009 SE[place]A DO, BROCK K 729.81 Swelling Of Limb 10/28/2009 IGNACIO ALVAREZ KELTON S 285.21 ANEMIA CHRONIC KIDNEY DISEASE 10/28/2009 IGNACIO ALVAREZ, KELTON S 586 Uremia 10/28/2009 285.21 ANEMIA CHRONIC KIDNEY DISEASE 10/28/2009 586 Uremia 10/28/2009 SE[place] DO, BROCK K 285.21 ANEMIA CHRONIC KIDNEY DISEASE 10/28/2009 SEV[place]A DO, BROCK K 586 Uremia 10/28/2009 SEV[place]A DO, BROCK K 285.21 ANEMIA CHRONIC KIDNEY DISEASE 10/28/2009 SE[place] DO, BROCK K 586 Uremia 10/28/2009 285.21 ANEMIA CHRONIC KIDNEY DISEASE 10/28/2009 586 Uremia 10/28/2009 IGNACIO ALVAREZ KELTON S 285.21 ANEMIA CHRONIC KIDNEY DISEASE 10/28/2009 IGNACIO ALVAREZ KELTON S 586 Uremia 10/28/2009 IGNACIO ALVAREZ KELTON S 285.21 ANEMIA CHRONIC KIDNEY DISEASE 10/28/2009 IGNACIO ALVAREZ KELTON S 586 Uremia 10/28/2009 IGNACIO ALVAREZ KELTON S 285.21 ANEMIA CHRONIC KIDNEY DISEASE 10/28/2009 IGNAICO ALVAREZ KELTON S 586 Uremia 10/28/2009 DARRYL HARVEY MD 285.21 ANEMIA CHRONIC KIDNEY DISEASE 10/28/2009 DARRYL HARVEY MD 586 Uremia 10/28/2009 IGNACIO ALVAREZ KELTON S 285.21 ANEMIA CHRONIC KIDNEY DISEASE 10/28/2009 IGNACIO ALVAREZ, KELTON S 586 Uremia 10/28/2009 285.21 ANEMIA CHRONIC KIDNEY DISEASE 10/28/2009 586 Uremia 10/28/2009 IGNACIO ALVAREZ KELTON S 285.21 ANEMIA CHRONIC KIDNEY DISEASE 10/28/2009 IGNACIO ALVAREZ KELTON S 586 Uremia 10/28/2009 IGNACIO ALVAREZ KELTON S 285.21 ANEMIA CHRONIC KIDNEY DISEASE 10/28/2009 IGNACIO ALVAREZ KELTON S 586 Uremia 10/28/2009 IGNACIO ALVAREZ KELTON S 285.21 ANEMIA CHRONIC KIDNEY DISEASE 10/28/2009 IGNACIO CHARLTONN, KELTON S 586 Uremia 10/28/2009 SE[place] DO, BROCK K 285.21 ANEMIA CHRONIC KIDNEY DISEASE 10/28/2009 SEV[place]A DO, BROCK K 586 Uremia 10/28/2009 SE[place]A DO, BROCK K 285.21 ANEMIA CHRONIC KIDNEY DISEASE 10/28/2009 SE[place] DO, BROCK K 586 Uremia 11/19/2009 IGNACIO ALVAREZ, KELTON S 250.00 DIABETES MELLITUS 11/19/2009 IGNACIO CHARLTONN, KELTON S 401.1 BENIGN ESSENTIAL HYPERTENSION 11/19/2009 250.00 DIABETES MELLITUS 11/19/2009 401.1 BENIGN ESSENTIAL HYPERTENSION 11/19/2009 SEV[place] DO, BROCK K 250.00 DIABETES MELLITUS 11/19/2009 SEV[place]A DO, BROCK K 401.1 BENIGN ESSENTIAL HYPERTENSION 11/19/2009 SEVILAL DO, BROCK K 250.00 DIABETES MELLITUS 11/19/2009 SEV[place]A DO, BROCK K 401.1 BENIGN ESSENTIAL HYPERTENSION 11/19/2009 250.00 DIABETES MELLITUS 11/19/2009 401.1 BENIGN ESSENTIAL HYPERTENSION 11/19/2009 IGNACIO ALVAREZ, KELTON S 250.00 DIABETES MELLITUS 11/19/2009 IGNACIO ALVAREZ, KELTON S 401.1 BENIGN ESSENTIAL HYPERTENSION 11/19/2009 IGNACIO ALVAREZ, KELTON S 250.00 DIABETES MELLITUS 11/19/2009 IGNACIO ALVAREZ, KELTON S 401.1 BENIGN ESSENTIAL HYPERTENSION 11/19/2009 IGNACIO ALVAREZ, KELTON S 250.00 DIABETES MELLITUS 11/19/2009 IGNACIO ALVAREZ KELTON S 401.1 BENIGN ESSENTIAL HYPERTENSION 11/19/2009 DARRYL HARVEY MD 250.00 DIABETES MELLITUS 11/19/2009 DARRYL HARVEY MD 401.1 BENIGN ESSENTIAL HYPERTENSION 11/19/2009 IGNACIO ALVAREZ, KELTON S 250.00 DIABETES MELLITUS 11/19/2009 IGNACIO ALVAREZ KELTON S 401.1 BENIGN ESSENTIAL HYPERTENSION 11/19/2009 250.00 DIABETES MELLITUS 11/19/2009 401.1 BENIGN ESSENTIAL HYPERTENSION 11/19/2009 IGNACIO ALVAREZ, KELTON S 250.00 DIABETES MELLITUS 11/19/2009 IGNACIO ALVAREZ KELTON S 401.1 BENIGN ESSENTIAL HYPERTENSION 11/19/2009 IGNACIO CLIENT FINANCE ANALYST, KELTON S 250.00 DIABETES MELLITUS 11/19/2009 IGNACIO CLIENT FINANCE ANALYST, KELTON S 401.1 BENIGN ESSENTIAL HYPERTENSION 11/19/2009 IGNACIO CLIENT FINANCE ANALYST, KELTON S 250.00 DIABETES MELLITUS 11/19/2009 IGNACIO CLIENT FINANCE ANALYST, KELTON S 401.1 BENIGN ESSENTIAL HYPERTENSION 11/19/2009 SE[place] DO, BROCK K 250.00 DIABETES MELLITUS 11/19/2009 SE[place] DO, BROCK K 401.1 BENIGN ESSENTIAL HYPERTENSION 11/19/2009 [place] DO, BROCK K 250.00 DIABETES MELLITUS 11/19/2009 [place] DO, BROCK K 401.1 BENIGN ESSENTIAL HYPERTENSION 07/05/2010 IGNACIO ALVAREZ KELTON S V76.44 Psa Screening 07/05/2010 V76.44 Psa Screening 07/05/2010 [place] DO, BROCK K V76.44 Psa Screening 07/05/2010 [place] DO, BROCK K V76.44 Psa Screening 07/05/2010 V76.44 Psa Screening 07/05/2010 IGNACIO ALVAREZ, KELTON S V76.44 Psa Screening 07/05/2010 IGNACIO CLIENT FINANCE ANALYST, KELTON S V76.44 Psa Screening 07/05/2010 IGNACIO ALVAREZ, KELTON S V76.44 Psa Screening 07/05/2010 DARRYL HARVEY MD V76.44 Psa Screening 07/05/2010 IGNACIO CLIENT FINANCE ANALYST, KELTON S V76.44 Psa Screening 07/05/2010 V76.44 Psa Screening 07/05/2010 IGNACIO ALVAREZ, KELTON S V76.44 Psa Screening 07/05/2010 IGNACIO CLIENT FINANCE ANALYST, KELTON S V76.44 Psa Screening 07/05/2010 IGNACIO CLIENT FINANCE ANALYST, KELTON S V76.44 Psa Screening 07/05/2010 [place] DO, BROCK K V76.44 Psa Screening 07/05/2010 [place] DO, BROCK K V76.44 Psa Screening 10/15/2010 Ot 211.3 BENIGN NEOPLASM LG BOWEL 10/15/2010 Ot 211.4 BENIGN NEOPL RECTUM/ANUS 10/15/2010 Ot 280.9 IRON DEFIC ANEMIA NOS 10/15/2010 Ot 531.40 CHR STOMACH ULC W HEM 10/15/2010 Ot 535.40 OTH SPECIFIED GASTRITIS,W/O MENTION OF H 10/15/2010 Ot 535.60 DUODENITIS, WITHOUT MENTION OF HEMORRHAG 10/15/2010 Ot 562.10 DIVERTICULOSIS COLON (W/O MENT OF HEMORR 10/20/2010 Ot 250.00 DIAB FEDERICO WO COMPL, TYPE II OR UNSPEC TY 10/20/2010 Ot 403.90 HYPTNSV CHR KID DIS, UNSPEC, W CHR KD ST 10/20/2010 Ot 540.9 ACUTE APPENDICITIS NOS 10/20/2010 Ot 550.90 UNILAT INGUINAL HERNIA 10/20/2010 Ot 585.9 CHRONIC KIDNEY DISEASE, UNSPECIFIED 10/30/2010 Ot 372.30 CONJUNCTIVITIS NOS 11/27/2010 STAN PIERRE APRNA S 403.11 CHRONIC KIDNEY DISEASE WITH BENIGN HYPERTENSION 11/27/2010 STAN PIERRE APRNA S 564.00 Constipation 11/27/2010 403.11 CHRONIC KIDNEY DISEASE WITH BENIGN HYPERTENSION 11/27/2010 564.00 Constipation 11/27/2010 BROCK SEVILLA DO K 403.11 CHRONIC KIDNEY DISEASE WITH BENIGN HYPERTENSION 11/27/2010 BROCK SEVILLA DO K 564.00 Constipation 11/27/2010 BROCK SEVILLA DO K 403.11 CHRONIC KIDNEY DISEASE WITH BENIGN HYPERTENSION 11/27/2010 BROCK SEVILLA DO K 564.00 Constipation 11/27/2010 403.11 CHRONIC KIDNEY DISEASE WITH BENIGN HYPERTENSION 11/27/2010 564.00 Constipation 11/27/2010 CRISTIN PIERRE APRNNDA S 403.11 CHRONIC KIDNEY DISEASE WITH BENIGN HYPERTENSION 11/27/2010 CRISTIN PIERRE APRNNDA S 564.00 Constipation 11/27/2010 STAN PIERRE APRNA S 403.11 CHRONIC KIDNEY DISEASE WITH BENIGN HYPERTENSION 11/27/2010 CRISTIN PIERRE APRNNDA S 564.00 Constipation 11/27/2010 CRISTIN PIERRE APRNNDA S 403.11 CHRONIC KIDNEY DISEASE WITH BENIGN HYPERTENSION 11/27/2010 CRISTIN PIERRE APRNNDA S 564.00 Constipation 11/27/2010 DARRYL HARVEY MD 403.11 CHRONIC KIDNEY DISEASE WITH BENIGN HYPERTENSION 11/27/2010 DARRYL HARVEY MD 564.00 Constipation 11/27/2010 STAN PIERRE APRNA S 403.11 CHRONIC KIDNEY DISEASE WITH BENIGN HYPERTENSION 11/27/2010 IGNACIO CHARLTONN, KELTON S 564.00 Constipation 11/27/2010 403.11 CHRONIC KIDNEY DISEASE WITH BENIGN HYPERTENSION 11/27/2010 564.00 Constipation 11/27/2010 IGNACIO CLIENT FINANCE ANALYST, KELTON S 403.11 CHRONIC KIDNEY DISEASE WITH BENIGN HYPERTENSION 11/27/2010 IGNACIO CLIENT FINANCE ANALYST, KELTON S 564.00 Constipation 11/27/2010 IGNACIO CLIENT FINANCE ANALYST, KELTON S 403.11 CHRONIC KIDNEY DISEASE WITH BENIGN HYPERTENSION 11/27/2010 IGNACIO CLIENT FINANCE ANALYST, KELTON S 564.00 Constipation 11/27/2010 IGNACIO CLIENT FINANCE ANALYST, KELTON S 403.11 CHRONIC KIDNEY DISEASE WITH BENIGN HYPERTENSION 11/27/2010 IGNACIO CLIENT FINANCE ANALYST, KELTON S 564.00 Constipation 11/27/2010 [place] DO, BROCK K 403.11 CHRONIC KIDNEY DISEASE WITH BENIGN HYPERTENSION 11/27/2010 [place] DO, BROCK K 564.00 Constipation 11/27/2010 [place] DO, BROCK K 403.11 CHRONIC KIDNEY DISEASE WITH BENIGN HYPERTENSION 11/27/2010 [place] DO, BROCK K 564.00 Constipation 02/16/2011 IGNACIO CHARLTONN, KELTON S 252.00 HYPERPARATHYROIDISM 02/16/2011 IGNACIO CHARLTONN, KELTON S 276.51 Dehydration (na, H2o) 02/16/2011 252.00 HYPERPARATHYROIDISM 02/16/2011 276.51 Dehydration (na, H2o) 02/16/2011 [place] DO, BROCK K 252.00 HYPERPARATHYROIDISM 02/16/2011 [place] DO, BROCK K 276.51 Dehydration (na, H2o) 02/16/2011 [place] DO, BROCK K 252.00 HYPERPARATHYROIDISM 02/16/2011 [place] DO, BROCK K 276.51 Dehydration (na, H2o) 02/16/2011 252.00 HYPERPARATHYROIDISM 02/16/2011 276.51 Dehydration (na, H2o) 02/16/2011 IGNACIO ALVAREZ KELTON S 252.00 HYPERPARATHYROIDISM 02/16/2011 IGNACIO CLIENT FINANCE ANALYST, KELTON S 276.51 Dehydration (na, H2o) 02/16/2011 IGNACIO ALVAREZ KELTON S 252.00 HYPERPARATHYROIDISM 02/16/2011 IGNACIO ALVAREZ KELTON S 276.51 Dehydration (na, H2o) 02/16/2011 IGNACIO CLIENT FINANCE ANALYST, KELTON S 252.00 HYPERPARATHYROIDISM 02/16/2011 IGNACIO ALVAREZ, KELTON S 276.51 Dehydration (na, H2o) 02/16/2011 DARRYL HARVEY MD 252.00 HYPERPARATHYROIDISM 02/16/2011 DARRYL HARVEY MD 276.51 Dehydration (na, H2o) 02/16/2011 IGNACIO ALVAREZ, KELTON S 252.00 HYPERPARATHYROIDISM 02/16/2011 IGNACIO ALVAREZ, KELTON S 276.51 Dehydration (na, H2o) 02/16/2011 252.00 HYPERPARATHYROIDISM 02/16/2011 276.51 Dehydration (na, H2o) 02/16/2011 IGNACIO ALVAREZ, KELTON S 252.00 HYPERPARATHYROIDISM 02/16/2011 IGNACIO ALVAREZ, KELTON S 276.51 Dehydration (na, H2o) 02/16/2011 IGNACIO ALVAREZ, KELTON S 252.00 HYPERPARATHYROIDISM 02/16/2011 IGNACIO ALVAREZ, KELTON S 276.51 Dehydration (na, H2o) 02/16/2011 IGNACIO ALVAREZ KELTON S 252.00 HYPERPARATHYROIDISM 02/16/2011 IGNACIO ALVAREZ, KELTON S 276.51 Dehydration (na, H2o) 02/16/2011 [place] DO, BROCK K 252.00 HYPERPARATHYROIDISM 02/16/2011 [place] DO, BROCK K 276.51 Dehydration (na, H2o) 02/16/2011 [place] DO, BROCK K 252.00 HYPERPARATHYROIDISM 02/16/2011 [place] DO, BROCK K 276.51 Dehydration (na, H2o) 06/08/2011 CRISTIN PIERRE APRNNDA S 786.2 Cough 06/08/2011 786.2 Cough 06/08/2011 [place] DO, BROCK K 786.2 Cough 06/08/2011 [place] DO, BROCK K 786.2 Cough 06/08/2011 786.2 Cough 06/08/2011 CRISTIN PIERRE APRNNDA S 786.2 Cough 06/08/2011 CRISTIN PIERRE APRNNDA S 786.2 Cough 06/08/2011 CRISTIN PIERRE APRNNDA S 786.2 Cough 06/08/2011 DARRYL HAVREY MD 786.2 Cough 06/08/2011 CRISTIN PIERRE APRNNDA S 786.2 Cough 06/08/2011 786.2 Cough 06/08/2011 IGNACIO CLIENT FINANCE ANALYST, KELTON S 786.2 Cough 06/08/2011 IGNACIO CLIENT FINANCE ANALYST, KELTON S 786.2 Cough 06/08/2011 IGNACIO CLIENT FINANCE ANALYST, KELTON S 786.2 Cough 06/08/2011 [place] DO, BROCK K 786.2 Cough 06/08/2011 [place] DO, BROCK K 786.2 Cough 06/28/2011 IGNACIO CHARLTONN, KELTON S 369.4 LE[place] BLINDNESS [place]FINED [place] 06/28/2011 369.4 LEGAL BLINDNESS DEFINED [place] 06/28/2011 [place] DO, BROCK K 369.4 LEGAL BLINDNESS DEFINED [place] 06/28/2011 [place] DO, BROCK K 369.4 LEGAL BLINDNESS DEFINED [place] 06/28/2011 369.4 LEGAL BLINDNESS DEFINED [place] 06/28/2011 CRISTIN PIERRE APRNNDA S 369.4 LEGAL BLINDNESS DEFINED [place] 06/28/2011 CRISTIN PIERRE APRNNDA S 369.4 LEGAL BLINDNESS DEFINED [place] 06/28/2011 CRISTIN PIERRE APRNNDA S 369.4 LEGAL BLINDNESS DEFINED [place] 06/28/2011 DARRYL HARVEY MD 369.4 LEGAL BLINDNESS DEFINED [place] 06/28/2011 CRISTIN PIERRE APRNNDA S 369.4 LEGAL BLINDNESS DEFINED [place] 06/28/2011 369.4 LEGAL BLINDNESS DEFINED [place] 06/28/2011 CRISTIN PIERRE APRNNDA S 369.4 LEGAL BLINDNESS DEFINED [place] 06/28/2011 CRISTIN PIERRE APRNNDA S 369.4 LEGAL BLINDNESS DEFINED [place] 06/28/2011 CRISTIN PIERRE APRNNDA S 369.4 LEGAL BLINDNESS DEFINED [place] 06/28/2011 [place] DO, BROCK K 369.4 LEGAL BLINDNESS DEFINED [place] 06/28/2011 [place] DO, BROCK K 369.4 LEGAL BLINDNESS DEFINED IN [place] 07/06/2011 Ot 053.9 HERPES ZOSTER NOS 07/06/2011 Ot 782.1 NONSPECIF SKIN ERUPT NEC 07/11/2011 IGNACIO ALVAREZ KELTON S 053.9 Herpes Zoster Without Complication 07/11/2011 IGNACIO ALVAREZ KELTON S 311 DEPRESSIVE DISORDER NOT ELSEWHERE CLASSIFIED 07/11/2011 053.9 Herpes Zoster Without Complication 07/11/2011 311 DEPRESSIVE DISORDER NOT ELSEWHERE CLASSIFIED 07/11/2011 [place] DO, BROCK K 053.9 Herpes Zoster Without Complication 07/11/2011 [place] DO, BROCK K 311 DEPRESSIVE DISORDER NOT ELSEWHERE CLASSIFIED 07/11/2011 [place] DO, BROCK K 053.9 Herpes Zoster Without Complication 07/11/2011 [place] DO, BROCK K 311 DEPRESSIVE DISORDER NOT ELSEWHERE CLASSIFIED 07/11/2011 053.9 Herpes Zoster Without Complication 07/11/2011 311 DEPRESSIVE DISORDER NOT ELSEWHERE CLASSIFIED 07/11/2011 IGNACIO ALVAREZ KELTON S 053.9 Herpes Zoster Without Complication 07/11/2011 CRISTIN PIERRE APRNNDA S 311 DEPRESSIVE DISORDER NOT ELSEWHERE CLASSIFIED 07/11/2011 IGNACIO ALVAREZ KELTON S 053.9 Herpes Zoster Without Complication 07/11/2011 CRISTIN PIERRE APRNNDA S 311 DEPRESSIVE DISORDER NOT ELSEWHERE CLASSIFIED 07/11/2011 CRISTIN PIERRE APRNNDA S 053.9 Herpes Zoster Without Complication 07/11/2011 CRISTIN PIERRE APRNNDA S 311 DEPRESSIVE DISORDER NOT ELSEWHERE CLASSIFIED 07/11/2011 DARRYL HARVEY MD 053.9 Herpes Zoster Without Complication 07/11/2011 DARRYL HARVEY MD 311 DEPRESSIVE DISORDER NOT ELSEWHERE CLASSIFIED 07/11/2011 IGNACIO ALVAREZ KELTON S 053.9 Herpes Zoster Without Complication 07/11/2011 IGNACIO ALVAREZ KELTON S 311 DEPRESSIVE DISORDER NOT ELSEWHERE CLASSIFIED 07/11/2011 053.9 Herpes Zoster Without Complication 07/11/2011 311 DEPRESSIVE DISORDER NOT ELSEWHERE CLASSIFIED 07/11/2011 IGNACIO ALVAREZ KELTON S 053.9 Herpes Zoster Without Complication 07/11/2011 IGNACIO ALVAREZ KELTON S 311 DEPRESSIVE DISORDER NOT ELSEWHERE CLASSIFIED 07/11/2011 IGNACIO ALVAREZ KELTON S 053.9 Herpes Zoster Without Complication 07/11/2011 KELTON PIERRE APRN S 311 DEPRESSIVE DISORDER NOT ELSEWHERE CLASSIFIED 07/11/2011 KELTON PIERRE APRN S 053.9 Herpes Zoster Without Complication 07/11/2011 KELTON PIERRE APRN S 311 DEPRESSIVE DISORDER NOT ELSEWHERE CLASSIFIED 07/11/2011 SEV[place]A BROCK ISRAEL K 053.9 Herpes Zoster Without Complication 07/11/2011 SE[place] DO BROCK K 311 DEPRESSIVE DISORDER NOT ELSEWHERE CLASSIFIED 07/11/2011 ROMEL SE[place]A DOA K 053.9 Herpes Zoster Without Complication 07/11/2011 ROEL ISRAEL, BROCK K 311 DEPRESSIVE DISORDER NOT ELSEWHERE CLASSIFIED 07/25/2011 Ot 403.91 HYPTNSV CHR KID DIS, UNSPEC, W CHR KD ST 07/25/2011 Ot 473.9 CHRONIC SINUSITIS NOS 07/25/2011 Ot 577.0 ACUTE PANCREATITIS 07/25/2011 Ot 585.6 END STAGE RENAL DISEASE 07/25/2011 Ot 787.03 VOMITING ALONE 07/25/2011 Ot V45.11 RENAL DIALYSIS STATUS 09/21/2011 KELTON PIERRE APRN S 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 09/21/2011 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 09/21/2011 BROCK SEVILLA DO K 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 09/21/2011 BROCK SEV[place]A DO K 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 09/21/2011 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 09/21/2011 KELTON PIERRE APRN S 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 09/21/2011 KELTON PIERRE APRN S 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 09/21/2011 KELTON PIERRE APRN S 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 09/21/2011 CANDICE MIRANDA, DARRYL 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 09/21/2011 KELTON PIERRE APRN S 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 09/21/2011 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 09/21/2011 KELTON PIERRE APRN S 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 09/21/2011 IGNACIO CLIENT FINANCE ANALYST, KELTON S 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 09/21/2011 IGNACIO CLIENT FINANCE ANALYST, KELTON S 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 09/21/2011 [place] DO, BROCK K 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 09/21/2011 [place] DO, BROCK K 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 11/24/2011 IGNACIO CLIENT FINANCE ANALYST, KELTON S 786.2 Cough 11/24/2011 IGNACIO CLIENT FINANCE ANALYST, KELTON S 787.91 Diarrhea 11/24/2011 786.2 Cough 11/24/2011 787.91 Diarrhea 11/24/2011 [place] DO, BROCK K 786.2 Cough 11/24/2011 [place] DO, BROCK K 787.91 Diarrhea 11/24/2011 [place] DO, BROCK K 786.2 Cough 11/24/2011 [place] DO, BROCK K 787.91 Diarrhea 11/24/2011 786.2 Cough 11/24/2011 787.91 Diarrhea 11/24/2011 IGNACIO CLIENT FINANCE ANALYST, KELTON S 786.2 Cough 11/24/2011 IGNACIO CLIENT FINANCE ANALYST, KELTON S 787.91 Diarrhea 11/24/2011 IGNACIO CLIENT FINANCE ANALYST, KELTON S 786.2 Cough 11/24/2011 IGNACIO CLIENT FINANCE ANALYST, KELTON S 787.91 Diarrhea 11/24/2011 IGNACIO CLIENT FINANCE ANALYST, KELTON S 786.2 Cough 11/24/2011 IGNACIO CLIENT FINANCE ANALYST, KELTON S 787.91 Diarrhea 11/24/2011 DARRYL HARVEY MD 786.2 Cough 11/24/2011 DARRYL HARVEY MD 787.91 Diarrhea 11/24/2011 IGNACIO CLIENT FINANCE ANALYST, KELTON S 786.2 Cough 11/24/2011 IGNACIO CLIENT FINANCE ANALYST, KELTON S 787.91 Diarrhea 11/24/2011 786.2 Cough 11/24/2011 787.91 Diarrhea 11/24/2011 IGNACIO CLIENT FINANCE ANALYST, KELTON S 786.2 Cough 11/24/2011 IGNACIO CLIENT FINANCE ANALYST, KELTON S 787.91 Diarrhea 11/24/2011 IGNACIO CLIENT FINANCE ANALYST, KELTON S 786.2 Cough 11/24/2011 CRISTIN PIERRE APRNNDA S 787.91 Diarrhea 11/24/2011 IGNACIO ALVAREZ, KELTON S 786.2 Cough 11/24/2011 IGNACIO ALVAREZ, KELTON S 787.91 Diarrhea 11/24/2011 SEVILLA DO, BROCK K 786.2 Cough 11/24/2011 SEVILLA DO, BROCK K 787.91 Diarrhea 11/24/2011 SEVILLA DO, BROCK K 786.2 Cough 11/24/2011 SEVILLA DO, BROCK K 787.91 Diarrhea 06/05/2012 Ot 784.0 HEADACHE 06/12/2012 CRISTIN PIERRE APRNNDA S 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 06/12/2012 CRISTIN PIERRE APRNNDA S 784.0 Headache 06/12/2012 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 06/12/2012 784.0 Headache 06/12/2012 SEVILLA DO, BROCK K 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 06/12/2012 SEVILLA DO, BROCK K 784.0 Headache 06/12/2012 SEVILLA DO, BROCK K 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 06/12/2012 SEVILLA DO, BROCK K 784.0 Headache 06/12/2012 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 06/12/2012 784.0 Headache 06/12/2012 CRISTIN PIERRE APRNNDA S 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 06/12/2012 CRISTIN PIERRE APRNNDA S 784.0 Headache 06/12/2012 CRISTIN PIERRE APRNNDA S 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 06/12/2012 CRISTIN PIERRE APRNNDA S 784.0 Headache 06/12/2012 CRISTIN PIERRE APRNNDA S 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 06/12/2012 CRISTIN PIERRE APRNNDA S 784.0 Headache 06/12/2012 DARRYL HARVEY MD 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 06/12/2012 DARRYL HARVEY MD 784.0 Headache 06/12/2012 CRISTIN PIERRE APRNNDA S 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 06/12/2012 CRISTIN PIERRE APRNNDA S 784.0 Headache 06/12/2012 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 06/12/2012 784.0 Headache 06/12/2012 IGNACIO ALVAREZ, KELTON S 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 06/12/2012 IGNACIO ALVAREZ, KELTON S 784.0 Headache 06/12/2012 IGNACIO CLIENT FINANCE ANALYST, KELTON S 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 06/12/2012 IGNACIO ALVAREZ, KELTON S 784.0 Headache 06/12/2012 IGNACIO ALVAREZ, KELTON S 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 06/12/2012 IGNACIO ALVAREZ, KELTON S 784.0 Headache 06/12/2012 SEVILLA DO, BROCK K 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 06/12/2012 SEVILLA DO, BROCK K 784.0 Headache 06/12/2012 SEVILLA DO, BROCK K 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 06/12/2012 SEVILLA DO, BROCK K 784.0 Headache 06/12/2012 Ot 368.2 DIPLOPIA 06/12/2012 Ot 372.30 CONJUNCTIVITIS NOS 07/17/2012 KELTON PIERRE APRN S 704.8 OTHER SPECIFIED DISEASES OF HAIR AND HAIR FOLLICLES 07/17/2012 704.8 OTHER SPECIFIED DISEASES OF HAIR AND HAIR FOLLICLES 07/17/2012 SEVILLA ROMEL ISRAELA K 704.8 OTHER SPECIFIED DISEASES OF HAIR AND HAIR FOLLICLES 07/17/2012 SEVILLA ROMEL ISRAELA K 704.8 OTHER SPECIFIED DISEASES OF HAIR AND HAIR FOLLICLES 07/17/2012 704.8 OTHER SPECIFIED DISEASES OF HAIR AND HAIR FOLLICLES 07/17/2012 KELTON PIERRE APRN S 704.8 OTHER SPECIFIED DISEASES OF HAIR AND HAIR FOLLICLES 07/17/2012 KELTON PIERRE APRN S 704.8 OTHER SPECIFIED DISEASES OF HAIR AND HAIR FOLLICLES 07/17/2012 KELTON PIERRE APRN S 704.8 OTHER SPECIFIED DISEASES OF HAIR AND HAIR FOLLICLES 07/17/2012 DARRYL HARVEY MD 704.8 OTHER SPECIFIED DISEASES OF HAIR AND HAIR FOLLICLES 07/17/2012 KELTON PIERRE APRN S 704.8 OTHER SPECIFIED DISEASES OF HAIR AND HAIR FOLLICLES 07/17/2012 704.8 OTHER SPECIFIED DISEASES OF HAIR AND HAIR FOLLICLES 07/17/2012 IGNACIO CLIENT FINANCE ANALYST, KELTON S 704.8 OTHER SPECIFIED DISEASES OF HAIR AND HAIR FOLLICLES 07/17/2012 IGNACIO CLIENT FINANCE ANALYST, KELTON S 704.8 OTHER SPECIFIED DISEASES OF HAIR AND HAIR FOLLICLES 07/17/2012 IGNACIO CLIENT FINANCE ANALYST, KELTON S 704.8 OTHER SPECIFIED DISEASES OF HAIR AND HAIR FOLLICLES 07/17/2012 SEVILLA DO, BROCK K 704.8 OTHER SPECIFIED DISEASES OF HAIR AND HAIR FOLLICLES 07/17/2012 SEVILLA DO, BROCK K 704.8 OTHER SPECIFIED DISEASES OF HAIR AND HAIR FOLLICLES 09/11/2012 IGNACIO CHARLTONN, KELTON S 250.60 Neuropathy Due To Diabetes 09/11/2012 IGNACIO CHARLTONN, KELTON S 368.2 Diplopia 09/11/2012 IGNACIO ALVAREZ, KELTON S 784.0 Headache 09/11/2012 250.60 Neuropathy Due To Diabetes 09/11/2012 368.2 Diplopia 09/11/2012 784.0 Headache 09/11/2012 SEVILLA DO, BROCK K 250.60 Neuropathy Due To Diabetes 09/11/2012 SEVILLA DO, BROCK K 368.2 Diplopia 09/11/2012 SEVILLA DO, BROCK K 784.0 Headache 09/11/2012 SEVILLA DO, BROCK K 250.60 Neuropathy Due To Diabetes 09/11/2012 SEVILLA DO, BROCK K 368.2 Diplopia 09/11/2012 SEVILLA DO, BROCK K 784.0 Headache 09/11/2012 250.60 Neuropathy Due To Diabetes 09/11/2012 368.2 Diplopia 09/11/2012 784.0 Headache 09/11/2012 IGNACIO ALVAREZ, KELTON S 250.60 Neuropathy Due To Diabetes 09/11/2012 IGNACIO CHARLTONN, KELTON S 368.2 Diplopia 09/11/2012 IGNACIO CLIENT FINANCE ANALYST, KELTON S 784.0 Headache 09/11/2012 IGNACIO CLIENT FINANCE ANALYST, KELTON S 250.60 Neuropathy Due To Diabetes 09/11/2012 IGNACIO CLIENT FINANCE ANALYST, KELTON S 368.2 Diplopia 09/11/2012 IGNACIO CLIENT FINANCE ANALYST, KELTON S 784.0 Headache 09/11/2012 IGNACIO CLIENT FINANCE ANALYST, KELTON S 250.60 Neuropathy Due To Diabetes 09/11/2012 IGNACIO CLIENT FINANCE ANALYST, KELTON S 368.2 Diplopia 09/11/2012 IGNACIO ALVAREZ, KELTON S 784.0 Headache 09/11/2012 DARRYL HARVEY MD 250.60 Neuropathy Due To Diabetes 09/11/2012 DARRYL HARVEY MD 368.2 Diplopia 09/11/2012 DARRYL HARVEY MD 784.0 Headache 09/11/2012 IGNACIO ALVAREZ KELTON S 250.60 Neuropathy Due To Diabetes 09/11/2012 IGNACIO ALVAREZ KELTON S 368.2 Diplopia 09/11/2012 CRISTIN PIERRE APRNNDA S 784.0 Headache 09/11/2012 250.60 Neuropathy Due To Diabetes 09/11/2012 368.2 Diplopia 09/11/2012 784.0 Headache 09/11/2012 CRISTIN PIERRE APRNNDA S 250.60 Neuropathy Due To Diabetes 09/11/2012 IGNACIO ALVAREZ KELTON S 368.2 Diplopia 09/11/2012 CRSITIN PIERRE APRNNDA S 784.0 Headache 09/11/2012 IGNACIO ALVAREZ KELTON S 250.60 Neuropathy Due To Diabetes 09/11/2012 IGNACIO ALVAREZ, KELTON S 368.2 Diplopia 09/11/2012 IGNACIO ALVAREZ KELTON S 784.0 Headache 09/11/2012 IGNACIO ALVAREZ KELTON S 250.60 Neuropathy Due To Diabetes 09/11/2012 IGNACIO ALVAREZ, KELTON S 368.2 Diplopia 09/11/2012 IGNACIO ALVAREZ KELTON S 784.0 Headache 09/11/2012 SEVILLA DO, BROCK K 250.60 Neuropathy Due To Diabetes 09/11/2012 SEVILLA DO, BROCK K 368.2 Diplopia 09/11/2012 SEVILLA DO, BROCK K 784.0 Headache 09/11/2012 SEVILLA DO, BROCK K 250.60 Neuropathy Due To Diabetes 09/11/2012 SEVILLA DO, BROCK K 368.2 Diplopia 09/11/2012 SEVILLA DO, BROCK K 784.0 Headache 12/18/2012 Ot 466.0 ACUTE BRONCHITIS 12/18/2012 Ot 780.60 FEVER, UNSPECIFIED 04/27/2013 YESENIA LORD DO Ot 722.52 LUMB/LUMBOSAC DISC DEGEN 04/27/2013 YESENIA LORD DO Ot 724.2 LUMBAGO 03/01/2014 MAYELA MIRANDA, ROSA ISELA Patterson Ot 365.9 GLAUCOMA NOS 03/01/2014 MAYELA MIRANDA, ROSA ISELA Patterson Ot 784.0 HEADACHE 03/04/2014 MICHEL MIRANDA, TIM Farrell Ot 784.0 HEADACHE 03/04/2014 MICHEL MIRANDA, TIM Farrell Ot 787.02 NAUSEA ALONE 03/05/2014 DARRYL HARVEY MD 350.1 TRIGEMINAL NEURALGIA 03/05/2014 CRISTIN PIERRE APRNNDA S 350.1 TRIGEMINAL NEURALGIA 03/05/2014 350.1 TRIGEMINAL NEURALGIA 03/05/2014 CRISTIN PIERRE APRNNDA S 350.1 TRIGEMINAL NEURALGIA 03/05/2014 IGNACIO ALVAREZ KELTON S 350.1 TRIGEMINAL NEURALGIA 03/05/2014 CRISTIN PIERRE APRNNDA S 350.1 TRIGEMINAL NEURALGIA 03/05/2014 BROCK SEVILLA DO K 350.1 TRIGEMINAL NEURALGIA 03/05/2014 BROCK SEVILLA DO K 350.1 TRIGEMINAL NEURALGIA 03/12/2014 DARRYL HARVEY MD 379.91 PAIN IN OR AROUND EYE 03/12/2014 CRISTIN PIERRE APRNNDA S 379.91 PAIN IN OR AROUND EYE 03/12/2014 379.91 PAIN IN OR AROUND EYE 03/12/2014 CRISTIN PIERRE APRNNDA S 379.91 PAIN IN OR AROUND EYE 03/12/2014 CRISTIN PIERRE APRNNDA S 379.91 PAIN IN OR AROUND EYE 03/12/2014 IGNACIO ALVAREZ KELTON S 379.91 PAIN IN OR AROUND EYE 03/12/2014 BROCK SEVILLA DO K 379.91 PAIN IN OR AROUND EYE 03/12/2014 BROCK SEVILLA DO K 379.91 PAIN IN OR AROUND EYE 04/03/2014 564.00 UNSPECIFIED CONSTIPATION 04/03/2014 IGNACIO ALVAREZ KELTON S 564.00 UNSPECIFIED CONSTIPATION 04/03/2014 IGNACIO ALVAREZ KELTON S 564.00 UNSPECIFIED CONSTIPATION 04/03/2014 CRISTIN PIERRE APRNNDA S 564.00 UNSPECIFIED CONSTIPATION 04/03/2014 BROCK SEVILLA DO 564.00 UNSPECIFIED CONSTIPATION 04/03/2014 ROEL ISRAEL BROCK Chao 564.00 UNSPECIFIED CONSTIPATION 09/16/2014 KELTON PIERRE APRN 719.46 PAIN IN JOINT INVOLVING LOWER LEG 09/16/2014 KELTON PIERRE APRN 719.46 PAIN IN JOINT INVOLVING LOWER LEG 09/16/2014 BORCK SEVILLA DO 719.46 PAIN IN JOINT INVOLVING LOWER LEG 09/16/2014 BROCK SEVILLA DO 719.46 PAIN IN JOINT INVOLVING LOWER LEG 12/02/2014 Ot 585.4 12/02/2014 Ot 585.9 12/02/2014 Ot 518.0 12/02/2014 Ot 786.59 12/02/2014 Ot 376.31 12/02/2014 Ot 784.0 12/02/2014 YESENIA LORD DO Ot 462 ACUTE PHARYNGITIS 12/02/2014 YESENIA LORD DO Ot 487.1 FLU W RESP MANIFEST NEC 01/05/2015 BROCK SEVILLA DO 719.47 PAIN- FOOT 01/28/2015 BROCK SEVILLA DO 110.1 ONYCHOMYCOSIS 02/11/2015 Ot 585.4 02/11/2015 Ot 585.9 02/11/2015 Ot 518.0 02/11/2015 Ot 786.59 02/11/2015 Ot 376.31 02/11/2015 Ot 784.0 04/03/2015 OSCAR ESTRADA MD Ot 272.4 04/03/2015 OSCAR ESTRADA MD Ot 401.9 04/03/2015 OSCAR ESTRADA MD Ot 429.3 04/03/2015 OSCAR ESTRADA MD Ot 434.91 04/03/2015 OSCAR ESTRADA MD Ot 272.4 04/03/2015 OSCAR ESTRADA MD Ot 401.9 04/03/2015 OSCAR ESTRADA MD Ot 429.3 04/03/2015 OSCAR ESTRADA MD Ot 434.91 05/09/2015 OSCAR ESTRADA MD Ot 272.4 05/09/2015 OSCAR ESTRADA MD Ot 401.9 05/09/2015 OSCAR ESTRADA MD Ot 429.3 05/09/2015 OSCAR ESTRADA MD Ot 434.91 12/22/2015 ROSA ISELA PEDRO MD Ot E11.9 TYPE 2 DIABETES MELLITUS WITHOUT COMPLIC 12/22/2015 ROSA ISELA PEDRO MD Ot I12.0 HYP CHR KIDNEY DISEASE W STAGE 5 CHR KID 12/22/2015 ROSA ISELA PEDRO MD Ot J06.9 ACUTE UPPER RESPIRATORY INFECTION, UNSPE 12/22/2015 ROSA ISELA PEDRO MD Ot N18.6 END STAGE RENAL DISEASE 12/22/2015 ROSA ISELA PEDRO MD Ot 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 12/22/2015 Ot 585.4 12/22/2015 Ot 585.9 12/22/2015 Ot 518.0 12/22/2015 Ot 786.59 12/22/2015 Ot 376.31 12/22/2015 Ot 784.0 12/22/2015 OSCAR ESTRADA MD Ot 272.4 12/22/2015 OSCAR ESTRADA MD Ot 401.9 12/22/2015 OSCAR ESTRADA MD Ot 429.3 12/22/2015 OSCAR ESTRADA MD Ot 434.91 03/16/2016 Ot 585.9 CHRONIC KIDNEY DISEASE, UNSPECIFIED 03/16/2016 Ot 518.0 PULMONARY COLLAPSE 03/16/2016 Ot 786.59 CHEST PAIN NEC 03/16/2016 Ot 376.31 CONSTANT EXOPHTHALMOS 03/16/2016 Ot 784.0 HEADACHE 03/16/2016 OSCAR ESTRADA MD Ot 272.4 HYPERLIPIDEMIA NEC/NOS 03/16/2016 OSCAR ESTRADA MD Ot 401.9 HYPERTENSION NOS 03/16/2016 OSCAR ESTRADA MD Ot 429.3 CARDIOMEGALY 03/16/2016 OSCAR ESTRADA MD Ot 434.91 CEREBRAL ART OCCLUSION NOS W CEREBRAL IN 03/16/2016 CORONADO DO, FIDENCIO L Ot I12.0 HYP CHR KIDNEY DISEASE W STAGE 5 CHR KID 03/16/2016 CORONADO DO, FIDENCIO L Ot N18.6 END STAGE RENAL DISEASE 03/16/2016 CORONADO DO, FIDENCIO L Ot T82.838A HEMORRHAGE OF VASCULAR PROSTH DEV/GRFT, 03/16/2016 CORONADO DO, FIDENCIO L Ot Z87.891 PERSONAL HISTORY OF NICOTINE DEPENDENCE 03/16/2016 CORONADO DO, FIDENCIO L Ot Z99.2 DEPENDENCE ON RENAL DIALYSIS 03/17/2016 CORONADO DO, FIDENCIO L Ot I12.0 HYP CHR KIDNEY DISEASE W STAGE 5 CHR KID 03/17/2016 CORONADO DO, FIDENCIO L Ot N18.6 END STAGE RENAL DISEASE 03/17/2016 CORONADO DO, FIDENCIO L Ot T82.838A HEMORRHAGE OF VASCULAR PROSTH DEV/GRFT, 03/17/2016 CORONADO DO, FIDENCIO L Ot Z87.891 PERSONAL HISTORY OF NICOTINE DEPENDENCE 03/17/2016 CORONADO DO, FIDENCIO L Ot Z99.2 DEPENDENCE ON RENAL DIALYSIS 03/22/2016 CORONADO DO, FIDENCIO L Ot I12.0 HYP CHR KIDNEY DISEASE W STAGE 5 CHR KID 03/22/2016 CORONADO DO, FIDENCIO L Ot N18.6 END STAGE RENAL DISEASE 03/22/2016 CORONADO DO, FIDENCIO L Ot T82.838A HEMORRHAGE OF VASCULAR PROSTH DEV/GRFT, 03/22/2016 CORONADO DO, FIDENCIO L Ot Z87.891 PERSONAL HISTORY OF NICOTINE DEPENDENCE 03/22/2016 CORONADO DO, FIDENCIO L Ot Z99.2 DEPENDENCE ON RENAL DIALYSIS 07/24/2016 ELI LUCERO Ot E11.9 TYPE 2 DIABETES MELLITUS WITHOUT COMPLIC 07/24/2016 ELI LUCERO Ot I12.0 HYP CHR KIDNEY DISEASE W STAGE 5 CHR KID 07/24/2016 ELI LUCERO Ot N18.6 END STAGE RENAL DISEASE 07/24/2016 ELI LUCERO Ot N28.1 CYST OF KIDNEY, ACQUIRED 07/24/2016 ELI LUCERO Ot N28.9 DISORDER OF KIDNEY AND URETER, UNSPECIFI 07/24/2016 ELI LUCERO Ot R11.2 NAUSEA WITH VOMITING, UNSPECIFIED 07/24/2016 ELI LUCERO Ot R19.7 DIARRHEA, UNSPECIFIED 07/24/2016 ELI LUCERO Ot R53.1 WEAKNESS 07/24/2016 ELI LUCERO Ot 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 07/24/2016 ELI LUCERO Ot Z79.899 OTHER LONG-TERM (CURRENT) DRUG THERAPY 07/24/2016 ELI LUCERO Ot Z99.2 DEPENDENCE ON RENAL DIALYSIS 07/26/2016 ELI LUCERO Ot E11.9 TYPE 2 DIABETES MELLITUS WITHOUT COMPLIC 07/26/2016 ELI LUCERO Ot I12.0 HYP CHR KIDNEY DISEASE W STAGE 5 CHR KID 07/26/2016 ELI LUCERO Ot N18.6 END STAGE RENAL DISEASE 07/26/2016 ELI LUCERO Ot N28.1 CYST OF KIDNEY, ACQUIRED 07/26/2016 ELI LUCERO Ot N28.9 DISORDER OF KIDNEY AND URETER, UNSPECIFI 07/26/2016 ELI LUCERO Ot R11.2 NAUSEA WITH VOMITING, UNSPECIFIED 07/26/2016 ELI LUCERO Ot R19.7 DIARRHEA, UNSPECIFIED 07/26/2016 ELI LUCERO Ot R53.1 WEAKNESS 07/26/2016 ELI LUCERO Ot Z79.4 LONG-TERM (CURRENT) USE OF INSULIN 07/26/2016 ELI LUCERO Ot Z79.899 OTHER FLATTENING MACHINE OPERATOR (CURRENT) DRUG THERAPY 07/26/2016 ELI LUCERO Ot Z99.2 DEPENDENCE ON RENAL DIALYSIS 07/26/2016 CAYLA GONZALEZ APRN Ot E11.39 TYPE 2 DIABETES W OTH DIABETIC OPHTHALMI 07/26/2016 CAYLA GONZALEZ APRN Ot I12.0 HYP CHR KIDNEY DISEASE W STAGE 5 CHR KID 07/26/2016 CAYLA GONZALEZ APRN Ot J18.9 PNEUMONIA, UNSPECIFIED ORGANISM 07/26/2016 CAYLA GONZALEZ APRN Ot N18.6 END STAGE RENAL DISEASE 07/26/2016 CAYLA GONZALEZ APRN Ot R11.0 NAUSEA 07/26/2016 CAYLA GONZALEZ APRN Ot R42 DIZZINESS AND GIDDINESS 07/26/2016 CAYLA GONZALEZ APRN Ot R50.9 FEVER, UNSPECIFIED 07/26/2016 CAYLA GONZALEZ CLIENT FINANCE ANALYST Ot 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 07/26/2016 CAYLA GONZALEZ CLIENT FINANCE ANALYST Ot Z79.899 OTHER LONG-TERM (CURRENT) DRUG THERAPY 07/26/2016 CAYLA GONZALEZ APRN Ot Z99.2 DEPENDENCE ON RENAL DIALYSIS 07/27/2016 CAYLA GONZALEZ APRN Ot E11.39 TYPE 2 DIABETES W OTH DIABETIC OPHTHALMI 07/27/2016 CAYLA GONZALEZ CLIENT FINANCE ANALYST Ot I12.0 HYP CHR KIDNEY DISEASE W STAGE 5 CHR KID 07/27/2016 CAYLA GONZALEZ CLIENT FINANCE ANALYST Ot J18.9 PNEUMONIA, UNSPECIFIED ORGANISM 07/27/2016 CAYLA GONZALEZ CLIENT FINANCE ANALYST Ot N18.6 END STAGE RENAL DISEASE 07/27/2016 CAYLA GONZALEZ CLIENT FINANCE ANALYST Ot R11.0 NAUSEA 07/27/2016 CAYLA GONZALEZ CLIENT FINANCE ANALYST Ot R42 DIZZINESS AND GIDDINESS 07/27/2016 CAYLA GONZALEZ CLIENT FINANCE ANALYST Ot R50.9 FEVER, UNSPECIFIED 07/27/2016 CAYLA GONZALEZ CLIENT FINANCE ANALYST Ot Z79.4 LONG-TERM (CURRENT) USE OF INSULIN 07/27/2016 CAYLA GONZALEZ CLIENT FINANCE ANALYST Ot Z79.899 OTHER LONG-TERM (CURRENT) DRUG THERAPY 07/27/2016 CAYLA GONZALEZ CLIENT FINANCE ANALYST Ot Z99.2 DEPENDENCE ON RENAL DIALYSIS 12/07/2016 ANAT ARRIETA MD Ot Z01.818 ENCOUNTER FOR OTHER PREPROCEDURAL EXAMIN 12/07/2016 AANT ARRIETA MD Ot Z12.11 ENCOUNTER FOR SCREENING FOR MALIGNANT NE 12/07/2016 ANAT ARRIETA MD Ot Z01.818 ENCOUNTER FOR OTHER PREPROCEDURAL EXAMIN 12/07/2016 ANAT ARRIETA MD Ot Z12.11 ENCOUNTER FOR SCREENING FOR MALIGNANT NE 12/07/2016 ANAT ARRIETA MD Ot Z01.818 ENCOUNTER FOR OTHER PREPROCEDURAL EXAMIN 12/07/2016 ANAT ARRIETA MD Ot Z12.11 ENCOUNTER FOR SCREENING FOR MALIGNANT NE 12/07/2016 ANAT ARRIETA MD Ot Z01.818 ENCOUNTER FOR OTHER PREPROCEDURAL EXAMIN 12/07/2016 ANAT ARRIETA MD Ot Z12.11 ENCOUNTER FOR SCREENING FOR MALIGNANT NE 12/08/2016 ANAT ARRIETA MD Ot Z01.818 ENCOUNTER FOR OTHER PREPROCEDURAL EXAMIN 12/08/2016 ANAT ARRIETA MD Ot Z12.11 ENCOUNTER FOR SCREENING FOR MALIGNANT NE 12/08/2016 ANAT ARRIETA MD Ot K57.30 DVRTCLOS OF LG INT W/O PERFORATION OR AB 12/08/2016 ANAT ARRIETA MD Ot Z12.11 ENCOUNTER FOR SCREENING FOR MALIGNANT NE 12/09/2016 ANAT ARRIETA MD Ot K57.30 DVRTCLOS OF LG INT W/O PERFORATION OR AB 12/09/2016 ANAT ARRIETA MD Ot Z12.11 ENCOUNTER FOR SCREENING FOR MALIGNANT NE 12/16/2016 ANAT ARRIETA MD Ot K57.30 DVRTCLOS OF LG INT W/O PERFORATION OR AB 12/16/2016 ANAT ARRIETA MD Ot Z12.11 ENCOUNTER FOR SCREENING FOR MALIGNANT NE 12/22/2016 ANAT ARRIETA MD Ot K57.30 DVRTCLOS OF LG INT W/O PERFORATION OR AB 12/22/2016 ANAT ARRIETA MD Ot Z12.11 ENCOUNTER FOR SCREENING FOR MALIGNANT NE Procedures Code Description [place] [address] A1C (IN-HOUSE) 09/24/2012 65831 ROUTINE VENIPUNCTURE 11/30/2012 64004 LIPID PANEL 11/30/2012 63504 A1C (IN-HOUSE) 01/14/2013 03284 ROUTINE VENIPUNCTURE 07/22/2013 24517 A1C (IN-HOUSE) 07/22/2013 76219 LIPID PANEL 07/22/2013 13580 ROUTINE VENIPUNCTURE 12/25/2013 68815 GLUCOSE FINGER STICK 12/25/2013 15491 A1C (IN-HOUSE) 12/25/2013 24262 UA LONG DIP 12/25/2013 96242 CBC 12/26/2013 28529 CMP 12/26/2013 [id number] GFR CALC (RESULT ONLY) 12/26/2013 88380 MICRO ALBUMIN-IN HOUSE 03/12/2014 54866 MICROALBUMIN 03/12/2014 90898 A1C (IN-HOUSE) 05/13/2014 87717 XRAY KNEE LEFT 3 VIEWS 09/16/2014 68531 A1C (IN-HOUSE) 09/16/2014 06775 ROUTINE VENIPUNCTURE 09/25/2014 52025 LIPID PANEL 09/25/2014 26054 ROUTINE VENIPUNCTURE 01/05/2015 16808 XRAY FOOT RIGHT COMP MIN 3 VIEWS 01/05/2015 10058 A1C (IN-HOUSE) 01/05/2015 65787 CBC 01/05/2015 11086 CMP 01/05/2015 79226 LIPID PANEL 01/05/2015 [id number] GFR CALC (RESULT ONLY) 01/05/2015 75734 PT/INR 01/06/2015 43953 AMYLASE 01/06/2015 66205 LIPASE 01/06/2015 64967 NAIL REMOVAL PERMANENT (PARTIAL OR COMPLETE) 01/28/2015 Results Test Result Range Complete blood count (CBC) with automated white blood cell (WBC) differential - 07/24/16 15:00 Blood leukocytes automated count (number/volume) 4.4 10*3/uL 4.3-11.0 Blood erythrocytes automated count (number/volume) 3.29 10*6/uL 4.35-5.85 Venous blood hemoglobin measurement (mass/volume) 10.9 g/dL 13.3-17.7 Blood hematocrit (volume fraction) 32 % 40-54 Automated erythrocyte mean corpuscular volume 97 [foz_us] 80-99 Automated erythrocyte mean corpuscular hemoglobin (mass per erythrocyte) 33 pg 25-34 Automated erythrocyte mean corpuscular hemoglobin concentration measurement (mass/volume) 34 g/dL 32-36 Automated erythrocyte distribution width ratio 13.1 % 10.0- 14.5 Automated blood platelet count (count/volume) 106 10*3/uL 130-400 Automated blood platelet mean volume measurement 11.2 [foz_us] 7.4-10.4 Automated blood neutrophils/100 leukocytes 29 % 42-75 Automated blood lymphocytes/100 leukocytes 55 % 12-44 Blood monocytes/100 leukocytes 14 % 0-12 Automated blood eosinophils/100 leukocytes 1 % 0-10 Automated blood basophils/100 leukocytes 1 % 0-10 Blood neutrophils automated count (number/volume) 1.3 10*3 1.8-7.8 Blood lymphocytes automated count (number/volume) 2.4 10*3 1.0-4.0 Blood monocytes automated count (number/volume) 0.6 10*3 0.0- 1.0 Automated eosinophil count 0.1 10*3/uL 0.0-0.3 Automated blood basophil count (count/volume) 0.0 10*3/uL 0.0-0.1 PT panel in platelet poor plasma by coagulation assay - 07/24/16 15:00 Prothrombin time (PT) in platelet poor plasma by coagulation assay 14.1 s 12.2-14.7 INR in platelet poor plasma or blood by coagulation assay 1.1 0.8-1.4 Activated partial thromboplastin time (aPTT) in platelet poor plasma bycoagulation assay - 07/24/16 15:00 Activated partial thromboplastin time (aPTT) in platelet poor plasma bycoagulation assay 32 s 24-35 Comprehensive metabolic panel - 07/24/16 15:00 Serum or plasma sodium measurement (moles/volume) 134 mmol/L 135-145 Serum or plasma potassium measurement (moles/volume) 4.7 mmol/L 3.6-5.0 Serum or plasma chloride measurement (moles/volume) 95 mmol/L 98-107 Carbon dioxide 25 mmol/L 21-32 Serum or plasma anion gap determination (moles/volume) 14 mmol/L 5-14 Serum or plasma urea nitrogen measurement (mass/volume) 56 mg/dL 7-18 Serum or plasma creatinine measurement (mass/volume) 10.23 mg/dL 0.60-1.30 Serum or plasma urea nitrogen/creatinine mass ratio 5 NRG Serum or plasma creatinine measurement with calculation of estimated glomerular filtration rate 5 NRG Serum or plasma glucose measurement (mass/volume) 303 mg/dL 70-105 Serum or plasma calcium measurement (mass/volume) 7.4 mg/dL 8.5-10.1 Serum or plasma total bilirubin measurement (mass/volume) 0.6 mg/dL 0.1-1.0 Serum or plasma alkaline phosphatase measurement (enzymatic activity/volume) 37 U/L 40-136 Serum or plasma aspartate aminotransferase measurement (enzymatic activity/volume) 41 U/L 5-34 Serum or plasma alanine aminotransferase measurement (enzymatic activity/volume) 103 U/L 0-55 Serum or plasma protein measurement (mass/volume) 6.5 g/dL 6.4-8.2 Serum or plasma albumin measurement (mass/volume) 3.9 g/dL 3.2-4.5 Magnesium - 07/24/16 15:00 Magnesium 2.4 mg/dL 1.8-2.4 Serum or plasma thyrotropin measurement by detection limit <=0.05 miu/l (units/volume) - 07/24/16 15:00 Serum or plasma thyrotropin measurement by detection limit <=0.05 miu/l (units/volume) 0.54 u[iU]/mL 0.35-4.94 Serum or plasma ethanol measurement (mass/volume) - 07/24/16 15:00 Serum or plasma ethanol measurement (mass/volume) 10 mg/dL <10 Complete urinalysis with reflex to culture - 07/24/16 18:25 Urine color determination YELLOW NRG Urine clarity determination CLEAR NRG Urine pH measurement by test strip 8 5-9 Specific gravity of urine by test strip 1.010 1.016-1.022 Urine protein assay by test strip, semi-quantitative 3+ NEGATIVE Urine glucose detection by automated test strip 3+ NEGATIVE Erythrocytes detection in urine sediment by light microscopy 1+ NEGATIVE Urine ketones detection by automated test strip NEGATIVE NEGATIVE Urine nitrite detection by test strip NEGATIVE NEGATIVE Urine total bilirubin detection by test strip NEGATIVE NEGATIVE Urine urobilinogen measurement by automated test strip (mass/volume) NORMAL NORMAL Urine leukocyte esterase detection by dipstick NEGATIVE NEGATIVE Automated urine sediment erythrocyte count by microscopy (number/high power field) [HPF] NRG Automated urine sediment leukocyte count by microscopy (number/high power field) NONE NRG Bacteria detection in urine sediment by light microscopy NONE NRG Crystals detection in urine sediment by light microscopy NONE NRG Casts detection in urine sediment by light microscopy NONE NRG Mucus detection in urine sediment by light microscopy NEGATIVE NRG Complete urinalysis with reflex to culture NO NRG Urine drug screening test - 07/24/16 18:25 Urine phencyclidine detection by screening method NEGATIVE NEGATIVE Urine benzodiazepines detection by screening method NEGATIVE NEGATIVE Urine cocaine detection NEGATIVE NEGATIVE Urine amphetamines detection by screening method NEGATIVE NEGATIVE Urine methamphetamine detection by screening method NEGATIVE NEGATIVE Urine cannabinoids detection by screening method NEGATIVE NEGATIVE Urine opiates detection by screening method NEGATIVE NEGATIVE Urine barbiturates detection NEGATIVE NEGATIVE Screening urine tricyclic antidepressants detection NEGATIVE NEGATIVE Urine methadone detection by screening method NEGATIVE NEGATIVE Urine oxycodone detection NEGATIVE NEGATIVE Urine propoxyphene detection NEGATIVE NEGATIVE Urine buprenophrine screen NEGATIVE NEGATIVE Complete blood count (CBC) with automated white blood cell (WBC) differential - 07/26/16 14:10 Blood leukocytes automated count (number/volume) 10.0 10*3/uL 4.3-11.0 Blood erythrocytes automated count (number/volume) 3.17 10*6/uL 4.35-5.85 Venous blood hemoglobin measurement (mass/volume) 10.5 g/dL 13.3-17.7 Blood hematocrit (volume fraction) 32 % 40-54 Automated erythrocyte mean corpuscular volume 100 [foz_us] 80-99 Automated erythrocyte mean corpuscular hemoglobin (mass per erythrocyte) 33 pg 25-34 Automated erythrocyte mean corpuscular hemoglobin concentration measurement (mass/volume) 33 g/dL 32-36 Automated erythrocyte distribution width ratio 13.2 % 10.0- 14.5 Automated blood platelet count (count/volume) 118 10*3/uL 130-400 Automated blood platelet mean volume measurement 10.7 [foz_us] 7.4-10.4 Automated blood neutrophils/100 leukocytes 63 % 42-75 Automated blood lymphocytes/100 leukocytes 23 % 12-44 Blood monocytes/100 leukocytes 13 % 0-12 Automated blood eosinophils/100 leukocytes 0 % 0-10 Automated blood basophils/100 leukocytes 0 % 0-10 Blood neutrophils automated count (number/volume) 6.3 10*3 1.8-7.8 Blood lymphocytes automated count (number/volume) 2.3 10*3 1.0-4.0 Blood monocytes automated count (number/volume) 1.4 10*3 0.0- 1.0 Automated eosinophil count 0.0 10*3/uL 0.0-0.3 Automated blood basophil count (count/volume) 0.0 10*3/uL 0.0-0.1 Whole blood basic metabolic panel - 07/26/16 14:10 Serum or plasma sodium measurement (moles/volume) 132 mmol/L 135-145 Serum or plasma potassium measurement (moles/volume) 5.0 mmol/L 3.6-5.0 Serum or plasma chloride measurement (moles/volume) 93 mmol/L 98-107 Carbon dioxide 28 mmol/L 21-32 Serum or plasma anion gap determination (moles/volume) 11 mmol/L 5-14 Serum or plasma urea nitrogen measurement (mass/volume) 40 mg/dL 7-18 Serum or plasma creatinine measurement (mass/volume) 9.66 mg/dL 0.60-1.30 Serum or plasma urea nitrogen/creatinine mass ratio 4 NRG Serum or plasma creatinine measurement with calculation of estimated glomerular filtration rate 6 NRG Serum or plasma glucose measurement (mass/volume) 305 mg/dL 70-105 Serum or plasma calcium measurement (mass/volume) 7.5 mg/dL 8.5-10.1 Bacterial blood culture - 07/26/16 14:10 Bacterial blood culture NG NRG Complete urinalysis with reflex to culture - 07/26/16 14:32 Urine color determination YELLOW NRG Urine clarity determination CLEAR NRG Urine pH measurement by test strip 8 5-9 Specific gravity of urine by test strip 1.010 1.016-1.022 Urine protein assay by test strip, semi-quantitative 3+ NEGATIVE Urine glucose detection by automated test strip 3+ NEGATIVE Erythrocytes detection in urine sediment by light microscopy 4+ NEGATIVE Urine ketones detection by automated test strip NEGATIVE NEGATIVE Urine nitrite detection by test strip NEGATIVE NEGATIVE Urine total bilirubin detection by test strip NEGATIVE NEGATIVE Urine urobilinogen measurement by automated test strip (mass/volume) NORMAL NORMAL Urine leukocyte esterase detection by dipstick NEGATIVE NEGATIVE Automated urine sediment erythrocyte count by microscopy (number/high power field) [HPF] NRG Automated urine sediment leukocyte count by microscopy (number/high power field) [HPF] NRG Bacteria detection in urine sediment by light microscopy NEGATIVE NRG Squamous epithelial cells detection in urine sediment by light microscopy 0-2 NRG Crystals detection in urine sediment by light microscopy NONE NRG Casts detection in urine sediment by light microscopy NONE NRG Mucus detection in urine sediment by light microscopy NEGATIVE NRG Complete urinalysis with reflex to culture NO NRG Arterial blood gas measurement - 07/26/16 15:07 Blood pCO2 48 mm[Hg] 35-45 Blood pO2 53 mm[Hg] 79-93 Arterial blood bicarbonate measurement (moles/volume) 30 mmol/L 23-27 Arterial blood base excess by calculation 4.9 mmol/L -2.5-2.5 Arterial blood oxygen saturation measurement 88 % 94-100 * Inhaled oxygen flow rate N/A NRG Arterial blood pH measurement with patient temperature correction 7.42 7.37-7.43 Arterial blood carbon dioxide, total measurement (moles/volume) 31.5 mmol/L 21.0-31.0 Body site RIGHT RADIAL NRG Assessment of wrist artery patency prior to arterial puncture POSITIVE NRG Setting of ventilation mode NO NRG Measurement of body temperature 99.4 NRG Blood lactic acid measurement (moles/volume) - 07/26/16 16:13 Blood lactic acid measurement (moles/volume) 1.2 mmol/L 0.5- 2.0 Bacterial blood culture - 07/26/16 16:13 Bacterial blood culture NG NRG Encounters ACCT No. Visit Date/Time Discharge Status Pt. Type Provider Facility Loc./Unit Complaint [id number] 12/08/2016 08:15:00 12/08/2016 10:16:00 DIS Outpatient ANAT ARRIETA MD [facility] ENDO SCREENING [id number] 12/07/2016 10:30:00 12/07/2016 10:54:00 DIS Outpatient ANAT ARRIETA MD [facility] PREOP SCREENING [id number] 07/26/2016 12:49:00 07/26/2016 16:40:00 DIS Emergency CAYLA GONZALEZ CLIENT FINANCE ANALYST [facility] ER FEVER ABD PAIN [id number] 07/24/2016 14:08:00 07/24/2016 19:28:00 DIS Emergency ELI LUCERO [facility] ER DIZZINESS [id number] 03/16/2016 12:34:00 03/16/2016 14:20:00 DIS Emergency FIDENCIO CORONADO DO [facility] ER BLEEDING FROM DIALYSIS PORT [id number] 12/21/2015 21:50:00 12/22/2015 01:18:00 DIS Emergency ROSA ISELA PEDRO MD [facility] ER [id number] 02/10/2015 07:00:00 02/10/2015 23:59:59 CLS Preadmit OSCAR ESTRADA MD [facility] CARD [id number] 02/10/2015 06:49:00 02/10/2015 23:59:59 CLS Outpatient OSCAR ESTRADA MD [facility] CARD [id number] 12/02/2014 21:33:00 12/02/2014 23:02:00 DIS Emergency YESENIA LORD DO [facility] ER [id number] 03/04/2014 14:52:00 03/04/2014 20:30:00 DIS Emergency TIM PEARSON [facility] [facility] [id number] 03/01/2014 11:41:00 03/01/2014 13:30:00 DIS Emergency ROSA ISELA PEDRO MD [facility] [id number] 04/27/2013 15:05:00 04/27/2013 16:38:00 DIS Emergency YESENIA LORD DO [facility] ER [id number] 12/18/2012 18:53:00 Document Registration [id number] 06/13/2012 11:48:00 Document Registration [id number] 06/12/2012 12:27:00 Document Registration [id number] 06/05/2012 18:03:00 Document Registration [id number] 07/25/2011 00:44:00 Document Registration [id number] 07/06/2011 22:08:00 Document Registration [id number] 06/24/2011 10:44:00 Document Registration [id number] 06/04/2011 18:30:00 Document Registration [id number] 10/30/2010 00:55:00 Document Registration [id number] 10/17/2010 23:50:00 Document Registration [id number] 10/15/2010 08:16:00 Document Registration [id number] 07/30/2010 08:22:00 Document Registration [id number] 01/28/2015 15:40:00 01/28/2015 23:59:59 CLS Outpatient BROCK SEVILLA DO [id number] 09/25/2014 07:44:00 09/25/2014 23:59:59 CLS Outpatient KELTON PIERRE APRN [id number] 09/16/2014 10:15:00 09/16/2014 23:59:59 CLS Outpatient KELTON PIERRE APRN [id number] 09/16/2014 10:15:00 09/16/2014 23:59:59 CLS Outpatient BROCK SEVILLA DO [id number] 05/13/2014 11:11:00 05/13/2014 23:59:59 CLS Outpatient STAN PIERRE APRNA Meme [id number] 03/12/2014 09:46:00 03/12/2014 23:59:59 CLS Outpatient STAN PIERRE APRNA Meme [id number] 03/12/2014 09:46:00 03/12/2014 23:59:59 CLS Outpatient DARRYL HARVEY MD [id number] 01/08/2014 09:22:00 01/08/2014 23:59:59 CLS Outpatient KELTON PIERRE APRN [id number] 12/25/2013 15:46:00 12/25/2013 23:59:59 CLS Outpatient KELTON PIERRE APRN [id number] 07/22/2013 11:59:00 07/22/2013 23:59:59 CLS Outpatient KELTON PIERRE APRN [id number] 01/14/2013 10:29:00 01/14/2013 23:59:59 CLS Outpatient BROCK SEVILLA DO [id number] 11/30/2012 10:18:00 11/30/2012 23:59:59 CLS Outpatient BROCK SEVILLA DO [id number] 09/24/2012 14:50:00 09/24/2012 23:59:59 CLS Outpatient [id number] 08/10/2012 13:06:00 08/10/2012 23:59:59 CLS Outpatient KELTON PIERRE APRN [id number] 04/03/2014 18:33:00 Document Registration [id number] 05/23/2013 00:00:00 Document Registration [id number] 01/26/2018 11:00:00 01/26/2018 23:59:59 CLS Outpatient KELTON PIERRE APRN [facility]
--- NOTE | 2019-04-22 11:02 | ED Upper Extremity ---
General Chief Complaint: Upper Extremity Stated Complaint: BLEEDING FROM FISTULA Nursing Triage Note: PT AMB TO RM 8 WITH COMPLAINT OF LEFT ARM PAIN AND REDNESS. STATES STARTED 4 DAYS AGO. PT HAS A FISTULA IN RIGHT ARM. HAS NOT BEEN ACCESSED SINCE AUG 2018. Nursing Sepsis Screen: No Definite Risk Source: patient Exam Limitations: no limitations History of Present Illness Date Seen by Provider: Apr 22, 2019 Time Seen by Provider: 11:00 Initial Comments To ER with a four-day history of left arm redness and pain just proximal to the arteriovenous fistula in the left upper arm. Former hemodialysis patient, this has not been accessed since August 2018. No fevers or chills. No known injury. He is not on anticoagulants. Onset: other Severity: moderate Pain/Injury Location: left arm Modifying Factors: Worse With Movement Allergies and Home Medications Allergies Coded Allergies: No Known Drug Allergies (Verified , 06/27/07) Home Medications Amoxicillin/Potassium Clav 1 Each Tablet, 1 EACH PO BID Prescribed by: CAYLA GONZALEZ on 04/22/19 141 Apixaban 5 Mg Tablet, 10 MG PO BID Prescribed by: CAYLA GONZALEZ on 04/22/19 141 Benzonatate 200 Mg Capsule, 1 EACH PO TID PRN for COUGH Prescribed by: YESENIA LORD on 12/02/14 2251 Brimonidine Tartrate 5 Ml Drops, 1 DROP OU TID, (Reported) Brimonidine Tartrate 10 Ml Drops, 1 DROP OP TID, (Reported) BOTH EYES Fluticasone Propionate 16 Gm [place], 2 SPRAYS NS DAILY, (Reported) Glipizide 10 Mg Tablet, 10 MG PO DAILY, (Reported) Hydrocodone/Acetaminophen 1 Each Tablet, 1 EACH PO Q6H PRN for PAIN Prescribed by: ROSA ISELA PEDRO on 03/01/14 1322 Latanoprost 2.5 Ml Drops, 1 DROP OU HS, (Reported) Losartan Potassium 100 Mg Tablet, 100 MG PO DAILY, (Reported) Ondansetron 8 Mg Tab.rapdis, 8 MG PO Q6H PRN for NAUSEA/VOMITING Prescribed by: ELI LONG on 07/24/161919 Ondansetron 4 Mg Tab.rapdis, 4 MG PO Q4H PRN for NAUSEA/VOMITING Prescribed by: CAYLA GONZALEZ on 04/22/19 141 Oseltamivir Phosphate 75 Mg Cap, 75 MG PO BID Prescribed by: YESENIA LORD on 12/02/142249 Prednisone 20 Mg Tab, 40 MG PO DAILY Prescribed by: ROSA ISELA PEDRO on 12/22/15103 Promethazine HCl/Codeine 5 Ml Syrup, 5 ML PO Q4H PRN for COUGH Prescribed by: ROSA ISELA PEDRO on 12/22/15103 Timolol Maleate/Dorzolam Hcl 10 Ml Drops, 1 DROP OD Q12H PRN for AL, (Reported) [sodium bicar] , 650 MG BID, (Reported) Patient Home Medication List Home Medication List Reviewed: Yes Review of Systems Constitutional: see HPI EENTM: see HPI Respiratory: no symptoms reported; No dyspnea on exertion, No short of breath Cardiovascular: no symptoms reported; No chest pain, No syncope Genitourinary: no symptoms reported Musculoskeletal: no symptoms reported Skin: see HPI Psychiatric/Neurological: No Symptoms Reported Past Badckhv-Uclfid-Engiqp Hx Patient Social History Alcohol Use: Denies Use Recreational Drug Use: No Smoking Status: Former Smoker Type Used: Cigarettes Former Smoker, Quit: Nov 13, 2010 Recent Foreign Travel: No Contact w/Someone Who Travel: No Recent Infectious Disease Expo: No Recent Hopitalizations: No Immunizations Up To Date Tetanus Booster (TDap): Unknown Date of Pneumonia Vaccine: Dec 02, 2009 Date of Influenza Vaccine: Aug 26, 2016 Seasonal Allergies Seasonal Allergies: No Past Medical History Surgeries: Yes (right RCR) Appendectomy, Arteriovenous Shunt, Dialysis, Eye Surgery, Orthopedic, Renal Respiratory: No Cardiac: Yes High Cholesterol, Hypertension Neurological: Yes Neuropathy, Stroke Reproductive Disorders: No Sexually Transmitted Disease: No Renal Failure, Dialysis Gastrointestinal: No Musculoskeletal: No Endocrine: Yes Diabetes, Insulin dep Cataract, Glaucoma Cancer: No Psychosocial: No Integumentary: No Blood Disorders: No Family Medical History No Pertinent Family Hx Physical Exam Vital Signs Vital Signs - First Documented 04/22/19 09:15 Temp 98.8 Pulse 88 Resp 17 B/P (MAP) 136/66 (89) Pulse Ox 96 O2 Delivery Room Air Capillary Refill : Less Than 3 Seconds Height, Weight, BMI Height: 5'6.00" Weight: 197lbs. 0.4oz. 89.277071kg; 33.9 BMI Method:Stated General Appearance: WD/WN, no apparent distress Neck: non-tender, full range of motion Cardiovascular: regular rate, rhythm, no murmur Respiratory: no respiratory distress, no accessory muscle use Shoulder: normal inspection, non-tender Hand: normal inspection, non-tender Neurologic/Tendon: normal sensation, normal motor functions Neurologic/Psychiatric: alert, normal mood/affect, oriented x 3 Skin: normal color, warm/dry, other (There is a large arteriovenous fistula to the left anterior upper arm with palpable thrill. The fistula itself is without erythema. There is an area just proximal to this that is about palm sized which is indurated and firm/erythematous with no overlying skin wounds.) Progress/Results/Core Measures Results/Orders Lab Results Laboratory Tests Test 04/22/19 12:12 Range/Units White Blood Count 6.6 4.3-11.0 10^3/uL Red Blood Count 4.13 L 4.35-5.85 10^6/uL Hemoglobin 12.8 L 13.3-17.7 G/DL Hematocrit 39 L 40-54 % Mean Corpuscular Volume 94 80-99 FL Mean Corpuscular Hemoglobin 31 25-34 PG Mean Corpuscular Hemoglobin Concent 33 32-36 G/DL Red Cell Distribution Width 12.9 10.0-14.5 % Platelet Count 106 L 130-400 10^3/uL Mean Platelet Volume 10.7 H 7.4-10.4 FL Neutrophils (%) (Auto) 69 42-75 % Lymphocytes (%) (Auto) 15 12-44 % Monocytes (%) (Auto) 15 H 0-12 % Eosinophils (%) (Auto) 1 0-10 % Basophils (%) (Auto) 0 0-10 % Neutrophils # (Auto) 4.6 1.8-7.8 X 10^3 Lymphocytes # (Auto) 1.0 1.0-4.0 X 10^3 Monocytes # (Auto) 1.0 0.0-1.0 X 10^3 Eosinophils # (Auto) 0.1 0.0-0.3 10^3/uL Basophils # (Auto) 0.0 0.0-0.1 10^3/uL Sodium Level 137 135-145 MMOL/L Potassium Level 5.0 3.6-5.0 MMOL/L Chloride Level 106 98-107 MMOL/L Carbon Dioxide Level 25 21-32 MMOL/L Anion Gap 6 5-14 MMOL/L Blood Urea Nitrogen 22 H 7-18 MG/DL Creatinine 1.32 H 0.60-1.30 MG/DL Estimat Glomerular Filtration Rate 55 BUN/Creatinine Ratio 17 Glucose Level 222 H 70-105 MG/DL Calcium Level 9.4 8.5-10.1 MG/DL Corrected Calcium 9.3 8.5-10.1 MG/DL Total Bilirubin 0.5 0.1-1.0 MG/DL Aspartate Amino Transf (AST/SGOT) 17 5-34 U/L Alanine Aminotransferase (ALT/SGPT) 20 0-55 U/L Alkaline Phosphatase 56 40-136 U/L Total Protein 6.7 6.4-8.2 GM/DL Albumin 4.1 3.2-4.5 GM/DL My Orders Orders - CAYLA GONZALEZ APRN Cbc With Automated Diff (04/22/19 10:58) Comprehensive Metabolic Panel (04/22/19 10:58) Us Soft Tissue Unlisted [id number] (04/22/19 10:58) Us Venous Upper Ext Lt (04/22/19 13:02) Vital Signs/I&O 04/22/19 09:15 Temp 98.8 Pulse 88 Resp 17 B/P (MAP) 136/66 (89) Pulse Ox 96 O2 Delivery Room Air Blood Pressure Mean: 89 Departure Communication (Admissions) 1414-I discussed the case with cardiovascular surgeon Dr. Ellison at [place] in [place]. He recommends prophylactic antibiotics, anticoagulation but nothing surgical. He can follow up with primary care. Impression Primary Impression: Arteriovenous fistula thrombosis Qualified Codes: T82.868A - Thrombosis due to vascular prosthetic devices, implants and grafts, initial encounter Disposition: 01 HOME, SELF-CARE Condition: Stable Departure-Patient Inst. Decision time for Depature: 14:15 Referrals: [facility] (PCP/Family) Primary Care Physician Patient Instructions: Deep Vein Thrombosis (Blood Clots in the Legs) Add. Discharge Instructions: 1. Take the anticoagulants as directed 2. Take antibiotics as directed 3. Follow-up with your primary care provider later this week for recheck. All discharge instructions reviewed with patient and/or family. Voiced understanding. Scripts Apixaban (Eliquis) 5 Mg Tablet 10 MG PO BID for 7 Days, #28 TAB Prov: CAYLA GONZALEZ APRN 04/22/19 Ondansetron (Ondansetron Odt) 4 Mg Tab.rapdis 4 MG PO Q4H PRN for NAUSEA/VOMITING, #10 TAB Prov: CAYLA GONZALEZ APRN 04/22/19 Amoxicillin/Potassium Clav (Augmentin 875-125 Tablet) 1 Each Tablet 1 EACH PO BID, #14 TAB 0 Refills Prov: CAYLA GONZALEZ APRN 04/22/19 CAYLA GONZALEZ APRN Apr 22, 2019 11:02
[2019-04-22 12:19] LABS: BASOPHILS % (AUTO) 0 % (0-10); EOSINOPHILS # (AUTO) 0.1 10^3/uL (0.0-0.3); EOSINOPHILS % (AUTO) 1 % (0-10); HEMATOCRIT 39 % (40-54); HEMOGLOBIN 12.8 G/DL (13.3-17.7); LYMPHOCYTES % (AUTO) 15 % (12-44); MEAN CORPUSCULAR HEMOGLOBIN 31 PG (25-34); MEAN CORPUSCULAR HGB CONC 33 G/DL (32-36); MEAN CORPUSCULAR VOLUME 94 FL (80-99); MEAN PLATELET VOLUME 10.7 FL (7.4-10.4); MONOCYTES % (AUTO) 15 % (0-12); NEUTROPHILS # (AUTO) 4.6 X 10^3 (1.8-7.8); NEUTROPHILS % (AUTO) 69 % (42-75); PLATELET COUNT 106 10^3/uL (130-400); RED CELL DISTRIBUTION WIDTH 12.9 % (10.0-14.5); WHITE BLOOD COUNT 6.6 10^3/uL (4.3-11.0)
[2019-04-22 12:38] LABS: ALBUMIN 4.1 GM/DL (3.2-4.5); BILIRUBIN,TOTAL 0.5 MG/DL (0.1-1.0); CALCIUM 9.4 MG/DL (8.5-10.1); CREATININE SERUM 1.32 MG/DL (0.60-1.30); TOTAL PROTEIN 6.7 GM/DL (6.4-8.2)
[2019-04-22] MEDS ORDERED: APIX5TAB PO (14:19)
[2019-04-22] MEDS ORDERED: AMOX-358 PO (14:19)
[2019-04-22] MEDS ORDERED: ONDA4TAB11 PO (14:19)
[2019-04-22 14:36] VITALS: BP 138/70
--- NOTE | 2019-04-22 14:37 | Diagnostic Imaging Report ---
CLINICAL INDICATION: Patient with pain and redness of the left upper arm extremity with swelling. Patient has bleeding from fistula. EXAM: Limited ultrasound fistula Doppler evaluation and soft tissue ultrasound of the left upper extremity in the region of the fistula. COMPARISON: None. FINDINGS: The proximal arterial to fistula anastomosis is patent. There is extensive and occlusive clot within the mid to distal aspect of the fistula extending through the venous anastomosis portion of the left cephalic vein. The cephalic vein is also completely occluded with intravascular thrombus. The left cephalic vein to the left subclavian vein junction is patent with no thrombus seen within the right subclavian vein. Per the chief medical technologist, the left axillary vein and left internal jugular vein are patent. The midportion of the left brachial vein and visualized portions of the left radial and ulnar vessels are patent. IMPRESSION: 1. There is complete occlusion of the mid to distal aspect of the left upper extremity AV fistula with thrombus extending through the left cephalic vein to the left cephalic/subclavian vein junction region. 2. There is no evidence of deep venous thrombosis on this exam. 3. The remainder of this exam shows no other significant abnormality, as described above. 4. The results of this report were discussed with Sunny Doran APRN, via the telephone on 04/22/2019 at 1420 hours. Dictated by: Dictated on workstation # [id number]
== END 2019-04-22 14:32 | disposition home or self-care (01) ==
LOC: EDUNIT# 08:59 → ER 09:01
DX: T82.868A Thrombosis due to vascular prosthetic devices, implants and grafts, initial encounter (principal); E78.00 Pure hypercholesterolemia, unspecified; E11.22 Type 2 diabetes mellitus with diabetic chronic kidney disease; I12.0 Hypertensive chronic kidney disease with stage 5 chronic kidney disease or end stage renal disease; N18.6 End stage renal disease; E11.40 Type 2 diabetes mellitus with diabetic neuropathy, unspecified; Z86.73 Personal history of transient ischemic attack (TIA), and cerebral infarction without residual deficits; Z99.2 Dependence on renal dialysis; Z79.01 Long term (current) use of anticoagulants; Z87.891 Personal history of nicotine dependence; Z90.49 Acquired absence of other specified parts of digestive tract; Z79.51 Long term (current) use of inhaled steroids; Z79.4 Long term (current) use of insulin; Z79.52 Long term (current) use of systemic steroids
CPT/HCPCS: 36415; 76999; 80053; 85025

== ENCOUNTER 2020-07-21 09:42 | Inpatient (IN) | payer MEDICARE, MEDICAID ==
[~2020-07-21] VITALS: Ht 167 cm; Wt 87.5 kg
[~2020-07-21 09:42] MED LIST changes: +AMOX-358 PO; +APIX5TAB PO; +ONDA4TAB11 PO
[2020-07-21] MEDS ORDERED: NS IV 1000 ML 1,000 ML IV SCH (09:58)
[2020-07-21] MEDS ORDERED: ACETAMINOPHEN 500 MG TAB (TYLENOL) PO PRN (10:00)
[2020-07-21] MEDS ORDERED: ONDANSETRON 4 MG/2 ML (SDV) Z0FRAN ONE (10:01)
--- NOTE | 2020-07-21 10:04 | ED Respiratory ---
General Chief Complaint: Respiratory Problems Stated Complaint: COVID SYMPTOMS Source: patient, family, other [place] [facility] [place] Exam Limitations: language barrier (language line used) History of Present Illness Date Seen by Provider: Jul 21, 2020 Time Seen by Provider: 09:43 Initial Comments Patient presents ER by [place] [facility] [place] where the nurse practitioner called ahead and alerted us that he looked clammy, chilling, sweaty and needed further examination. He was positive for COVID 19 swab was morning. His was positive for COVID 19 earlier in the week so they moved him to the hotel room to try and avoid it. He had some nausea and vomiting. He has a history of renal transplant at [facility] and gets his medications there. He is not sure of medicines he is on. He follows with Pao Galvan locally at [facility] [place]. He denies having any fever, dysuria, diarrhea, loss of sensation taste or smell. He denies shortness of air or history of lung disease or heart disease. Allergies and Home Medications Allergies Coded Allergies: No Known Drug Allergies (Verified , 06/27/07) Home Medications Apixaban 5 Mg Tablet, 10 MG PO BID Prescribed by: CAYLA GONZALEZ on 04/22/19 1419 Brimonidine Tartrate 5 Ml Drops, 1 DROP OU TID, (Reported) Brimonidine Tartrate 10 Ml Drops, 1 DROP OP TID, (Reported) BOTH EYES Fluticasone Propionate 16 Gm [place], 2 SPRAYS NS DAILY, (Reported) Glipizide 10 Mg Tablet, 10 MG PO DAILY, (Reported) Latanoprost 2.5 Ml Drops, 1 DROP OU HS, (Reported) Losartan Potassium 100 Mg Tablet, 100 MG PO DAILY, (Reported) Timolol Maleate/Dorzolam Hcl 10 Ml Drops, 1 DROP OD Q12H PRN for AL, (Reported) [sodium bicar] , 650 MG BID, (Reported) Patient Home Medication List Home Medication List Reviewed: Yes Review of Systems Review of Systems Constitutional: No chills, No diaphoresis EENTM: No ear discharge, No hearing loss, No ear pain Respiratory: cough; No hemoptysis, No orthopnea, No phlegm; short of breath; No wheezing Cardiovascular: No chest pain, No edema, No palpitations Gastrointestinal: No abdominal pain, No constipation, No diarrhea, No nausea Genitourinary: No discharge, No dysuria Musculoskeletal: No back pain, No joint pain Psychiatric/Neurological: Denies Anxiety, Denies Depressed All Other Systems Reviewed Negative Unless Noted: Yes Past Cdppdgb-Vgxtnu-Idbzsl Hx Patient Social History Alcohol Use: Denies Use Recreational Drug Use: No Smoking Status: Former Smoker Type Used: Cigarettes Former Smoker, Quit: Nov 13, 2010 Recent Hopitalizations: No Immunizations Up To Date Tetanus Booster (TDap): Unknown Date of Pneumonia Vaccine: Dec 02, 2009 Date of Influenza Vaccine: Aug 26, 2016 Seasonal Allergies Seasonal Allergies: No Past Medical History Surgeries: Yes (right RCR) Appendectomy, Arteriovenous Shunt, Dialysis, Eye Surgery, Orthopedic, Renal Respiratory: No Cardiac: Yes High Cholesterol, Hypertension Neurological: Yes Neuropathy, Stroke Reproductive Disorders: No Sexually Transmitted Disease: No Renal Failure, Dialysis Gastrointestinal: No Musculoskeletal: No Endocrine: Yes Diabetes, Insulin dep Cataract, Glaucoma Cancer: No Psychosocial: No Integumentary: No Blood Disorders: No Family Medical History No Pertinent Family Hx Physical Exam Vital Signs - First Documented 07/21/20 09:42 Temp 37.3 Pulse 84 Resp 18 B/P (MAP) 170/79 (109) Pulse Ox 95 O2 Delivery Room Air O2 Flow Rate 2.00 Capillary Refill : Height: 5'6.00" Weight: 197lbs. 0.4oz. 89.208272jx; 33.9 BMI Method:Stated General Appearance: WD/WN, mild distress Eyes: Bilateral Eye Normal Inspection, Bilateral Eye PERRL, Bilateral Eye EOMI HEENT: PERRL/EOMI, normal ENT inspection, TMs normal, pharynx normal Neck: non-tender, full range of motion, supple, normal inspection Respiratory: lungs clear, normal breath sounds, no accessory muscle use, respiratory distress (ongl-ok-ozlwdufe with oxygen sats 91% on room air at rest. Breathing 22 breaths per minute) Cardiovascular: normal peripheral pulses, regular rate, rhythm, no edema Gastrointestinal: normal bowel sounds, non tender, soft Neurologic/Psychiatric: alert, normal mood/affect, oriented x 3 Skin: normal color, warm/dry Progress/Results/Core Measures Suspected Sepsis SIRS Temperature: Pulse: Respiratory Rate: Laboratory Tests 07/21/20 10:00: White Blood Count 5.8 Blood Pressure / Mean: Laboratory Tests 9/8/20 10:00: Creatinine 1.44H, INR Comment 1.1, Platelet Count 84L, Total Bilirubin 0.5 Results/Orders Lab Results Laboratory Tests Test 07/21/20 10:00 07/21/20 12:36 Range/Units White Blood Count 5.8 4.3-11.0 10^3/uL Red Blood Count 4.32 L 4.35-5.85 10^6/uL Hemoglobin 13.3 13.3-17.7 G/DL Hematocrit 40 40-54 % Mean Corpuscular Volume 92 80-99 FL Mean Corpuscular Hemoglobin 31 25-34 PG Mean Corpuscular Hemoglobin Concent 33 32-36 G/DL Red Cell Distribution Width 12.7 10.0-14.5 % Platelet Count 84 L 130-400 10^3/uL Mean Platelet Volume 11.1 H 7.4-10.4 FL Neutrophils (%) (Auto) 66 42-75 % Lymphocytes (%) (Auto) 20 12-44 % Monocytes (%) (Auto) 13 H 0-12 % Eosinophils (%) (Auto) 0 0-10 % Basophils (%) (Auto) 0 0-10 % Neutrophils # (Auto) 3.9 1.8-7.8 X 10^3 Lymphocytes # (Auto) 1.2 1.0-4.0 X 10^3 Monocytes # (Auto) 0.8 0.0-1.0 X 10^3 Eosinophils # (Auto) 0.0 0.0-0.3 10^3/uL Basophils # (Auto) 0.0 0.0-0.1 10^3/uL Prothrombin Time 14.8 H 12.2-14.7 SEC INR Comment 1.1 0.8-1.4 Activated Partial Thromboplast Time 34 24-35 SEC D-Dimer 0.67 H 0.00-0.49 UG/ML Sodium Level 134 L 135-145 MMOL/L Potassium Level 4.4 3.6-5.0 MMOL/L Chloride Level 104 98-107 MMOL/L Carbon Dioxide Level 21 21-32 MMOL/L Anion Gap 9 5-14 MMOL/L Blood Urea Nitrogen 27 H 7-18 MG/DL Creatinine 1.44 H 0.60-1.30 MG/DL Estimat Glomerular Filtration Rate 49 BUN/Creatinine Ratio 19 Glucose Level 218 H 70-105 MG/DL Calcium Level 8.5 8.5-10.1 MG/DL Corrected Calcium 8.7 8.5-10.1 MG/DL Total Bilirubin 0.5 0.1-1.0 MG/DL Aspartate Amino Transf (AST/SGOT) 34 5-34 U/L Alanine Aminotransferase (ALT/SGPT) 40 0-55 U/L Alkaline Phosphatase 42 40-136 U/L C-Reactive Protein High Sensitivity 8.56 H 0.00-0.50 MG/DL Total Protein 6.6 6.4-8.2 GM/DL Albumin 3.8 3.2-4.5 GM/DL Procalcitonin 0.06 <0.10 NG/ML Urine Color YELLOW Urine Clarity SL CLOUDY Urine pH 5.5 5-9 Urine Specific [place] >=1.030 1.016-1.022 Urine Protein 2+ H NEGATIVE Urine Glucose (UA) 1+ H NEGATIVE Urine Ketones 1+ H NEGATIVE Urine Nitrite NEGATIVE NEGATIVE Urine Bilirubin NEGATIVE NEGATIVE Urine Urobilinogen 0.2 < = 1.0 MG/DL Urine Leukocyte Esterase NEGATIVE NEGATIVE Urine RBC (Auto) 1+ H NEGATIVE Urine RBC 0-2 /HPF Urine WBC 0-2 /HPF Urine Squamous Epithelial Cells RARE /HPF Urine Crystals NONE /LPF Urine Bacteria TRACE /HPF Urine Casts PRESENT /LPF Urine Hyaline Casts RARE /LPF Urine Mucus NEGATIVE /LPF Urine Culture Indicated CULTURE PENDING Micro Results Microbiology 07/21/20 Influenza Types A,B Antigen (UMBERTO) - Final, Complete My Orders Orders - VAL PEARL Cbc With Automated Diff (07/21/20 09:58) Comprehensive Metabolic Panel (07/21/20 09:58) Blood Culture (07/21/20 09:58) Sputum Culture (07/21/20 09:58) Urinalysis (07/21/20 09:58) Urine Culture (07/21/20 09:58) Protime With Inr (07/21/20 09:58) Partial Thromboplastin Time (07/21/20 09:58) Chest 1 View, Ap/Pa Only (07/21/20 09:58) Acetaminophen Tablet (Tylenol Tablet) (07/21/20 10:00) Ed Iv/Invasive Line Start (07/21/20 09:58) Ed Iv/Invasive Line Start (07/21/20 09:58) Vital Signs Adult Sepsis Patie Q15M (07/21/20 09:58) O2 (07/21/20 09:58) Remove Rings In Anticipation O (07/21/20 09:58) Influenza A And B Antigens (07/21/20 09:58) Ns Iv 1000 Ml (Sodium Chloride 0.9%) (07/21/20 09:58) Fibrin Degradation Products (07/21/20 09:58) Procalcitonin (Pct) (07/21/20 09:58) Hs C Reactive Protein (07/21/20 09:58) Covid-19 External Lab Results (07/21/20 09:58) Ondansetron Injection (Zofran Injectio (07/21/20 10:15) Ondansetron Injection (Zofran Injectio (07/21/20 10:01) Oseltamivir 75 Mg Capsule (Tamiflu 75 (07/21/20 12:00) Medications Given in ED Current Medications Medications Dose Ordered Sig/Alyson Route Start Time Stop Time Status Last Admin Dose Admin Acetaminophen 1,000 mg ONCE PRN PO 07/21/20 10:00 07/21/20 10:07 DC 07/21/20 10:07 1,000 MG Ondansetron HCl 4 mg ONCE ONCE IVP 07/21/20 10:15 07/21/20 10:16 DC 07/21/20 10:07 4 MG Oseltamivir Phosphate 75 mg ONCE ONCE PO 07/21/20 12:00 07/21/20 12:01 DC 07/21/20 12:35 75 MG Vital Signs/I&O 07/21/20 07/21/20 09:42 09:45 Temp 37.3 Pulse 84 Resp 18 B/P (MAP) 170/79 (109) Pulse Ox 95 91 O2 Delivery Room Air Nasal Cannula O2 Flow Rate 2.00 2.00 Capillary Refill : Progress Note : Time: 11:52 Progress Note Oxygen saturation 91% without labored breathing. Clear lung sounds. We put him on 2 L which brought him up into the high 90s. He will need inpatient care. He has positive influenza and COVID-19 by outside testing. We'll start him on Tamiflu and get the rest of our labs and chest x-ray. We are not going to flood him with fluids since he has COVID-19 we'll start with a liter. Diagnostic Imaging Diagonstic Imaging: Xray Plain Films/CT/US/NM/MRI: chest Comments [facility] [place] [place] NAME: CONNER DOWD [facility] REC#: [id number] PT STATUS: REG ER : 1955 PHYSICIAN: VAL PEARL MD ADMIT DATE: 07/21/20/ER Draft Date of Exam:07/21/20 CHEST 1 VIEW, AP/PA ONLY INDICATION: Shortness of air and COVID positive. TIME OF EXAM: 10:49 a.m. COMPARISON: Correlation is made with prior chest from 07/26/2016. FINDINGS: Heart size is stable. Right hemidiaphragm is chronically elevated. There is minimal subsegmental atelectasis in the right base. The pulmonary vascularity is normal. No pulmonary infiltrates are detected. No effusion or pneumothorax is seen. IMPRESSION: No acute cardiopulmonary process is detected. Dictated on workstation # [id number] Dict: 07/21/20 1059 Trans: 07/21/20 1106 [id number] Interpreted by: NORA PINTO MD Electronically signed by: Reviewed: Reviewed by Me Departure Communication (Admissions) Time/Spoke to Admitting Phy: 12:30 Discussed the case with Dr. Link and she agrees take patient to cardiac stepdown with consult to pulmonology. Time/Spoke to Consulting Phy: 12:[address] Ruiz and he agrees to consult for pulmonology. Impression Primary Impression: Severe acute respiratory syndrome coronavirus 2 (SARS-CoV-2) detected Additional Impressions: Influenza A Acute respiratory failure with hypoxia History of kidney transplant Disposition: ADMITTED INPATIENT Condition: Stable Admissions Decision to Admit Reason: Admit from ER (General) Decision to Admit/Date: Jul 21, 2020 Time/Decision to Admit Time: 12:00 Departure-Patient Inst. Referrals: [facility] (PCP/Family) Primary Care Physician VAL PEARL Jul 21, 2020 10:04
[2020-07-21 10:11] LABS: BASOPHILS % (AUTO) 0 % (0-10); EOSINOPHILS % (AUTO) 0 % (0-10); HEMATOCRIT 40 % (40-54); HEMOGLOBIN 13.3 G/DL (13.3-17.7); LYMPHOCYTES # (AUTO) 1.2 X 10^3 (1.0-4.0); LYMPHOCYTES % (AUTO) 20 % (12-44); MEAN CORPUSCULAR HEMOGLOBIN 31 PG (25-34); MEAN CORPUSCULAR HGB CONC 33 G/DL (32-36); MEAN CORPUSCULAR VOLUME 92 FL (80-99); MEAN PLATELET VOLUME 11.1 FL (7.4-10.4); MONOCYTES # (AUTO) 0.8 X 10^3 (0.0-1.0); MONOCYTES % (AUTO) 13 % (0-12); NEUTROPHILS # (AUTO) 3.9 X 10^3 (1.8-7.8); NEUTROPHILS % (AUTO) 66 % (42-75); PLATELET COUNT 84 10^3/uL (130-400); WHITE BLOOD COUNT 5.8 10^3/uL (4.3-11.0)
[2020-07-21] MEDS ORDERED: ONDANSETRON 4 MG/2 ML (SDV) Z0FRAN IVP ONE (10:15)
[2020-07-21 10:25] LABS: FIBRIN DEGRADATION PRODUCTS 0.67 UG/ML (0.00-0.49); INR 1.1 (0.8-1.4); PROTHROMBIN TIME PATIENT 14.8 SEC (12.2-14.7)
[2020-07-21 10:29] LABS: ALBUMIN 3.8 GM/DL (3.2-4.5); BILIRUBIN,TOTAL 0.5 MG/DL (0.1-1.0); CALCIUM 8.5 MG/DL (8.5-10.1); CREATININE SERUM 1.44 MG/DL (0.60-1.30); POTASSIUM 4.4 MMOL/L (3.6-5.0); TOTAL PROTEIN 6.6 GM/DL (6.4-8.2)
--- NOTE | 2020-07-21 11:06 | Diagnostic Imaging Report ---
INDICATION: Shortness of air and COVID positive. TIME OF EXAM: 10:49 a.m. COMPARISON: Correlation is made with prior chest from 07/26/2016. FINDINGS: Heart size is stable. Right hemidiaphragm is chronically elevated. There is minimal subsegmental atelectasis in the right base. The pulmonary vascularity is normal. No pulmonary infiltrates are detected. No effusion or pneumothorax is seen. IMPRESSION: No acute cardiopulmonary process is detected. Dictated by: Dictated on workstation # [id number]
[2020-07-21] MEDS ORDERED: OSELTAMIVIR 75 MG (TAMIFLU) CAPSULE PO ONE (12:00)
[2020-07-21 12:44] LABS: BILIRUBIN,URINE NEGATIVE (NEGATIVE); CLARITY,URINE SL CLOUDY; COLOR,URINE YELLOW; GLUCOSE, URINE (UA) 1+ (NEGATIVE); KETONES,URINE 1+ (NEGATIVE); LEUKOCYTE ESTERASE ,URINE NEGATIVE (NEGATIVE); NITRITE,URINE NEGATIVE (NEGATIVE); PH,URINE 5.5 (5-9); PROTEIN,URINE 2+ (NEGATIVE)
[2020-07-21 12:53] LABS: BACTERIA,URINE TRACE /HPF; RBC,URINE 0-2 /HPF; SQUAMOUS EPITHELIAL CELL,UR RARE /HPF; WBC,URINE 0-2 /HPF
[2020-07-21 12:54] LABS: HYALINE CASTS, URINE RARE /LPF
[2020-07-21] MEDS ORDERED: VANCOMYCIN INJECTION 2,000 MG in NS IV 500 ML 500 ML IV ONE (13:06)
[2020-07-21] MEDS ORDERED: CEFEPIME INJECTION 1,000 MG in WATER (STERILE) FOR INJECTION 10 ML IV ONE (13:15)
--- NOTE | 2020-07-21 14:03 | History & Physical-Hospitalist ---
History of Present Illness HPI/Chief Complaint CC: SOB with fever with Covid HPI: This is a male clinic pt of [facility] who presents to the ER with SOB after his became positive with Covid, had been staying in a motel to prevent spreading the infection but worsened to the point of presenting to the ER after going to urgent care due to SOB. He is a renal transplant pt from . All labs appear to be stable. Dr. Ruiz has been contacted and we will plan on supportive care here at the hospital in cardiac stepdown. He does not speak Kiswahili so he was updated with basic medical tajik by this examiner during the use of PPE. Source: patient Exam Limitations: language barrier Date Seen 07/21/20 Time Seen by a Provider: 13:00 Attending Physician Akilah Gómez DO [facility] [place] Referring Physician Date of Admission Jul 21, 2020 at 13:25 Home Medications & Allergies Home Medications Reviewed patient Home Medication Reconciliation performed by pharmacy medication reconciliations clock repair technician and/or nursing. Patients Allergies have been reviewed. Allergies Allergies Coded Allergies No Known Drug Allergies (Verified06/27/07) Past Qtcaizq-Ifhetv-Nrkfju Hx Past Med/Social Hx: Reviewed Nursing Past Med/Soc Hx, Reviewed and Corrections made Patient Social History Marrital Status: Employed/Student: retired Alcohol Use: Denies Use Recreational Drug Use: No Smoking Status: Former Smoker Former Smoker, Quit: Nov 13, 2010 Type Used: Cigarettes Recent Foreign Travel: No Contact w/other who traveled: No Recent Hopitalizations: No Recent Infectious Disease Expo: Yes Immunizations Up To Date Tetanus Booster (TDap): Unknown Date of Pneumonia Vaccine: Dec 02, 2009 Date of Influenza Vaccine: Aug 26, 2016 Seasonal Allergies Seasonal Allergies: No Past Medical History Surgeries: Appendectomy, Arteriovenous Shunt, Dialysis, Eye Surgery, Ortho pedic, Renal Cardiac: High Cholesterol, Hypertension Neurological: Neuropathy, Stroke Reproductive: No Sexually Transmitted Disease: No Genitourinary: Renal Failure, Dialysis Endocrine: Diabetes, Insulin dep HEENT: Cataract, Glaucoma History of Blood Disorders: No Family History No Pertinent Family Hx Review of Systems Constitutional: see HPI, dizziness, malaise, weakness Respiratory: cough Physical Exam Physical Exam Vital Signs Vital Signs - First Documented 07/21/20 09:42 Temp 37.3 Pulse 84 Resp 18 B/P (MAP) 170/79 (109) Pulse Ox 95 O2 Delivery Room Air O2 Flow Rate 2.00 Capillary Refill : Less Than 3 Seconds Height, Weight, BMI Height: 5'6.00" Weight: 197lbs. 0.4oz. 89.994898cw; 34.00 BMI Method:Stated General Appearance: No Apparent Distress, Anxious, Chronically ill Eyes: Right Eye Normal Inspection, Right Eye PERRL HEENT: PERRL/EOMI, Normal ENT Inspection, Pharynx Normal, Moist Mucous Membranes Neck: Full Range of Motion, Normal Inspection, Non Tender Respiratory: Chest Non Tender, Lungs Clear, Normal Breath Sounds, No Accessory Muscle Use, No Respiratory Distress, Decreased Breath Sounds Cardiovascular: Regular Rate, Rhythm, No Edema, No Gallop, No JVD, No Murmur, Normal Peripheral Pulses Gastrointestinal: Normal Bowel Sounds, No Organomegaly, No Pulsatile Mass, Non Tender, Soft Back: Normal Inspection, No CVA Tenderness, No Vertebral Tenderness Extremity: Normal Capillary Refill, Normal Inspection, Normal Range of Motion, Non Tender, No Calf Tenderness, No Pedal Edema Neurologic/Psychiatric: Alert, Oriented x3, No Motor/Sensory Deficits, Normal Mood/Affect Skin: Normal Color, Warm/Dry Lymphatic: No Adenopathy Results Results/Procedures Labs Laboratory Tests 07/21/20 10:00 07/21/20 15:05 Patient resulted labs reviewed. Assessment/Plan Admission Diagnosis Assessment: COVID PNA Influenza A Hypoxia Renal transplant status Former smoker DM Plan: CSD COVID treatment O2 Admission Status: Inpatient Order (span 2 midnights) Reason for Inpatient Admission: covid pna Diagnosis/Problems Diagnosis/Problems (1) Severe acute respiratory syndrome coronavirus 2 (SARS-CoV-2) detected Status: Acute (2) Acute respiratory failure with hypoxia Status: Acute (3) Influenza A Status: Acute (4) History of kidney transplant Status: Acute AKILAH GÓMEZ DO Jul 21, 2020 14:03
--- NOTE | 2020-07-21 14:08 | Pulmonary Consultation ---
History of Present Illness History of Present Illness Date Seen by Provider: Jul 21, 2020 Time Seen by Provider: 14:03 Date of Admission History of Present Illness 64yo with hx of renal transplant at [facility] presented to ED from [facility] secondary to signs of sepsis, diaphoresis, N/V. PT tested positive for COVID this morning. Pt's is also COVID positive. He denies having any fever, dysuria, diarrhea, loss of sensation taste or smell. He denies shortness of air or history of lung disease or heart disease. Pt admitted to ICU for intensive care. Allergies and Home Medications Allergies Coded Allergies: No Known Drug Allergies (Verified , 06/27/07) Home Medications Apixaban 5 Mg Tablet, 10 MG PO BID Prescribed by: CAYLA GONZALEZ on 04/22/19 1419 Brimonidine Tartrate 5 Ml Drops, 1 DROP OU TID, (Reported) Brimonidine Tartrate 10 Ml Drops, 1 DROP OP TID, (Reported) BOTH EYES Fluticasone Propionate 16 Gm [place], 2 SPRAYS NS DAILY, (Reported) Glipizide 10 Mg Tablet, 10 MG PO DAILY, (Reported) Latanoprost 2.5 Ml Drops, 1 DROP OU HS, (Reported) Losartan Potassium 100 Mg Tablet, 100 MG PO DAILY, (Reported) Timolol Maleate/Dorzolam Hcl 10 Ml Drops, 1 DROP OD Q12H PRN for AL, (Reported) [sodium bicar] , 650 MG BID, (Reported) Past Hticugg-Eqzstn-Hbbqxg Hx Patient Social History Alcohol Use: Denies Use Recreational Drug Use: No Smoking Status: Former Smoker Type Used: Cigarettes Former Smoker, Quit: Nov 13, 2010 Recent Foreign Travel: No Contact w/Someone Who Travel: No Recent Infectious Disease Expo: Yes Recent Hopitalizations: No Physical Abuse: No Sexual Abuse: No Immunizations Up To Date Tetanus Booster (TDap): Unknown Date of Pneumonia Vaccine: Dec 02, 2009 Date of Influenza Vaccine: Aug 26, 2016 Seasonal Allergies Seasonal Allergies: No Past Medical History Surgeries: Yes (right RCR) Appendectomy, Arteriovenous Shunt, Dialysis, Eye Surgery, Orthopedic, Renal Respiratory: No Cardiac: Yes High Cholesterol, Hypertension Neurological: Yes Neuropathy, Stroke Reproductive Disorders: No Sexually Transmitted Disease: No Renal Failure, Dialysis Gastrointestinal: No Musculoskeletal: No Endocrine: Yes Diabetes, Insulin dep Cataract, Glaucoma Cancer: No Psychosocial: No Integumentary: No Blood Disorders: No Family Medical History No Pertinent Family Hx Review of Systems Time Seen by Provider: 14:23 Sepsis Event Evaluation Height, Weight, BMI Height: 5'6.00" Weight: 197lbs. 0.4oz. 89.704238cg; 34.00 BMI Method:Stated Exam Exam Vital Signs Date Time Temp Pulse Resp B/P (MAP) Pulse Ox O2 Delivery O2 Flow Rate FiO2 07/21/20 09:45 91 Nasal Cannula 2.00 07/21/20 09:42 37.3 84 18 170/79 (109) 95 Room Air 2.00 Height & Weight Height: 5'6.00" Weight: 197lbs. 0.4oz. 89.140687zv; 34.00 BMI Method:Stated General Appearance: WD/WN, Anxious HEENT: PERRL/EOMI, TMs Normal, Normal ENT Inspection Neck: Full Range of Motion, Normal Inspection, Non Tender, Supple Respiratory: Chest Non Tender, No Accessory Muscle Use, No Respiratory Distress, Decreased Breath Sounds Cardiovascular: Regular Rate, Rhythm, No Edema Capillary Refill: Less Than 3 Seconds Gastrointestinal: normal bowel sounds, non tender, soft Extremity: Normal Capillary Refill, Normal Inspection, No Pedal Edema Neurologic/Psychiatric: Alert, Oriented x3 Skin: Normal Color, Warm/Dry Lymphatic: No Adenopathy Results Lab Laboratory Tests 07/21/20 10:00 Assessment/Plan Assessment/Plan COVID -Start Remdesivir and decadron -Transfuse Convalescent plasma typed and crossed -Encourage proning Influenzan A+ -Start Tamiflu Thrombocytopenia -Monitor History of kidney transplant -Restart home medHERNESTO Colindres DO Jul 21, 2020 14:08
[2020-07-21] MEDS ORDERED: cefTRIAXone FOR IV USE 1,000 MG in WATER (STERILE) FOR INJECTION 10 ML IV SCH (14:15)
[2020-07-21] MEDS ORDERED: REMDESIVIR INJ (NON-FORMULARY) 200 MG in NS (IVPB) 210 ML IV NR (15:00)
[2020-07-21 15:16] LABS: BASOPHILS % (AUTO) 0 % (0-10); EOSINOPHILS % (AUTO) 0 % (0-10); HEMATOCRIT 38 % (40-54); HEMOGLOBIN 12.4 G/DL (13.3-17.7); LYMPHOCYTES # (AUTO) 1.4 X 10^3 (1.0-4.0); LYMPHOCYTES % (AUTO) 28 % (12-44); MEAN CORPUSCULAR HEMOGLOBIN 31 PG (25-34); MEAN CORPUSCULAR HGB CONC 33 G/DL (32-36); MEAN CORPUSCULAR VOLUME 94 FL (80-99); MEAN PLATELET VOLUME 11.1 FL (7.4-10.4); MONOCYTES # (AUTO) 0.7 X 10^3 (0.0-1.0); MONOCYTES % (AUTO) 14 % (0-12); NEUTROPHILS % (AUTO) 59 % (42-75); PLATELET COUNT 73 10^3/uL (130-400); WHITE BLOOD COUNT 5.1 10^3/uL (4.3-11.0)
[2020-07-21 15:33] LABS: ALBUMIN 3.5 GM/DL (3.2-4.5); BILIRUBIN,TOTAL 0.5 MG/DL (0.1-1.0); CALCIUM 7.9 MG/DL (8.5-10.1); CREATININE SERUM 1.28 MG/DL (0.60-1.30); MAGNESIUM 1.6 MG/DL (1.6-2.4); PHOSPHORUS 3.1 MG/DL (2.3-4.7); POTASSIUM 4.7 MMOL/L (3.6-5.0)
[2020-07-21 16:00] VITALS: BP 173/101
[2020-07-21] MEDS: dexAMETHasone 6 MG TAB (DECADRON) PO SCH (16:06)
[2020-07-21] MEDS: ENOXAPARIN 40 MG/0.4 ML (LOVENOX) SYR SC SCH (16:06)
[2020-07-21] MEDS ORDERED: LOPERAMIDE 2 MG (IMODIUM) TABLET PO NR (16:13)
[2020-07-21] MEDS ORDERED: ANTACID SUSP 30 ML UDC (MYLANTA) PO PRN (16:15)
[2020-07-21] MEDS ORDERED: ONDANSETRON 4 MG/2 ML (SDV) Z0FRAN IV PRN (16:15)
[2020-07-21] MEDS ORDERED: ACETAMINOPHEN 325 MG TABLET PO PRN (16:15)
[2020-07-21] MEDS ORDERED: LORazepam INJ 2 MG/ML (ATIVAN) VIAL IV PRN (16:15)
--- NOTE | 2020-07-21 16:37 | NUR ---
VANCOMYCIN DOSING: ADJ BW 75.9 KG, SCr 1.28, CrCl 63 RECEIVED LOADING DOSE OF 2,000 MG IN ED MAIN DOSE: 1,500 MG Q 12 HR X 3 DAYS VANCOMYCIN TROUGH DUE 07/22/20 @ 12:00 IF TROUGH > 20 HOLD 07/22/20 13:00 DOSE
[2020-07-21] MEDS ORDERED: EPINEPHrine 1 MG INJECTION 4 MG in NS (IVPB) 248 ML IV SCH (16:45)
[2020-07-21 16:50] VITALS: BP 170/79
[2020-07-21 17:00] VITALS: BP 162/95
[2020-07-21] MEDS: VASOPRESSIN INJECTION 20 UNIT in NORMAL SALINE 100 ML IV SCH (17:07)
[2020-07-21] MEDS: NS IV 1000 ML 1,000 ML IV SCH (17:07)
[2020-07-21] MEDS: NOREPINEPHRINE 4 MG/250 ML 250 ML IV SCH ×2 (17:07→23:54)
[2020-07-21] MEDS: inSUlin ASPART (NovoLOG) 1 UNIT/0.01 ML (CHARGE PER UNIT) SC SCH ×3 (17:15→21:00)
[2020-07-21] MEDS: CEFEPIME 1,000 MG/SWFI 10 ML IV PUSH IV SCH ×2 (17:16)
[2020-07-21 18:00] VITALS: BP 177/95
--- NOTE | 2020-07-21 18:09 | NUR ---
LATE ENTRY 1625: WITH THE USE OF LANGUAGE LINE, PT AGREEABLE TO REMDISIVIR TREATMENT, PT EDUCATED ON USE AND SIDE EFFECTS AND WITH LANGUAGE LINE HOGSHEAD SALVAGE PT AGREEABLE, THIS RN VERIFIED WELL Jorge RAJPUT MOBILE ENGINEER DIRECTOR. DR DOMINGUEZ IN ROOM TO SEE PATIENT AND INFORMED THAT PT HAS HX OF DIALYSIS AND NEPHRECTOMY, AT THIS TIME ORDERS RECEIVED TO HOLD REMDISIVIR TREATMENT. 1744 6 UNITS OF INSULIN GIVEN FOR BLOOD SUGAR PT REFUSED DINNER THE 10 UNITS WITH MEALS HELD.
[2020-07-21 20:00] VITALS: BP 173/101
[2020-07-21] MEDS ORDERED: OSELTAMIVIR 30 MG (TAMIFLU) CAPSULE PO SCH (21:00)
[2020-07-22] VITALS (8 sets, daily range): BP systolic 127–185; BP diastolic 65–107
[2020-07-22] MEDS ORDERED: VANCOMYCIN 1500 MG/NS 500 ML IVPB IV SCH ×2 (01:00)
[2020-07-22] MEDS: VASOPRESSIN INJECTION 20 UNIT in NORMAL SALINE 100 ML IV SCH (01:15)
--- NOTE | 2020-07-22 04:58 | Pulmonary Progress Note ---
Subjective Time Seen by a Provider: 04:56 Subjective/Events-last exam No complications noted. Sepsis Event Evaluation Height, Weight, BMI Height: 5'6.00" Weight: 197lbs. 0.4oz. 89.773857jg; 34.06 BMI Method:Stated Focused Exam Lactate Level 07/21/20 17:03: Lactic Acid Level 0.66 Exam Exam Vital Signs Date Time Temp Pulse Resp B/P (MAP) Pulse Ox O2 Delivery O2 Flow Rate FiO2 07/22/20 04:00 75 178/106 (130) 97 Nasal Cannula 2.00 07/22/20 04:00 36.2 07/22/20 04:00 98 Nasal Cannula 2.00 07/22/20 01:00 81 07/22/20 00:00 79 13 179/107 (131) 98 Nasal Cannula 2.00 07/22/20 00:00 98 Nasal Cannula 2.00 07/21/20 23:19 36.7 07/21/20 21:00 98 Nasal Cannula 2.00 07/21/20 20:00 98 Nasal Cannula 2.00 07/21/20 20:00 75 11 173/101 (125) 97 Nasal Cannula 2.00 07/21/20 19:58 37.0 07/21/20 19:00 80 07/21/20 18:00 79 16 177/95 (122) 99 Nasal Cannula 2.00 07/21/20 17:46 98 Nasal Cannula 2.00 07/21/20 17:07 72 170/79 07/21/20 17:07 72 170/79 07/21/20 17:00 77 14 162/95 (117) 98 Nasal Cannula 2.00 07/21/20 16:50 37.1 72 18 170/79 (109) 91 Nasal Cannula 2.00 2.00 07/21/20 16:00 73 19 173/101 (125) 98 Nasal Cannula 2.00 07/21/20 16:00 37.1 07/21/20 15:38 72 07/21/20 15:25 82 18 157/80 (109) 95 Nasal Cannula 2.00 07/21/20 09:45 91 Nasal Cannula 2.00 07/21/20 09:42 37.3 84 18 170/79 (109) 95 Room Air 2.00 I & O 07/22/20 07:00 Intake Total 1760 ml Output Total 650 ml Balance 1110 ml Height & Weight Height: 5'6.00" Weight: 197lbs. 0.4oz. 89.893566vy; 34.06 BMI Method:Stated General Appearance: No Apparent Distress, Anxious, Chronically ill HEENT: PERRL/EOMI, Normal ENT Inspection, Pharynx Normal, Moist Mucous Membranes Neck: Full Range of Motion, Normal Inspection, Non Tender Respiratory: Chest Non Tender, Lungs Clear, Normal Breath Sounds, No Accessory Muscle Use, No Respiratory Distress, Decreased Breath Sounds Cardiovascular: Regular Rate, Rhythm, No Edema, No Gallop, No JVD, No Murmur, Normal Peripheral Pulses Capillary Refill: Less Than 3 Seconds Gastrointestinal: normal bowel sounds, non tender, soft Extremity: Normal Capillary Refill, Normal Inspection, Normal Range of Motion, Non Tender, No Calf Tenderness, No Pedal Edema Neurologic/Psychiatric: Alert, Oriented x3, No Motor/Sensory Deficits, Normal Mood/Affect Skin: Normal Color, Warm/Dry Lymphatic: No Adenopathy Results Lab Laboratory Tests 07/21/20 10:00 07/21/20 15:05 Assessment/Plan Assessment/Plan COVID -Remdesivir, Convalescent plasma - Pt is aware these are EUA meds and consent to use. and decadron -Encourage proning -D/c Abx doubt bacterial infection. Influenzan A+ -Start Tamiflu Thrombocytopenia -Monitor History of kidney transplant -Restart home meds HERNESTO DOMINGUEZ DO Jul 22, 2020 04:58
[2020-07-22 05:17] LABS: BASOPHILS % (AUTO) 0 % (0-10); EOSINOPHILS % (AUTO) 0 % (0-10); HEMATOCRIT 39 % (40-54); LYMPHOCYTES # (AUTO) 0.6 X 10^3 (1.0-4.0); LYMPHOCYTES % (AUTO) 18 % (12-44); MEAN CORPUSCULAR HEMOGLOBIN 31 PG (25-34); MEAN CORPUSCULAR HGB CONC 33 G/DL (32-36); MEAN CORPUSCULAR VOLUME 93 FL (80-99); MEAN PLATELET VOLUME 11.9 FL (7.4-10.4); MONOCYTES # (AUTO) 0.2 X 10^3 (0.0-1.0); MONOCYTES % (AUTO) 7 % (0-12); NEUTROPHILS # (AUTO) 2.4 X 10^3 (1.8-7.8); NEUTROPHILS % (AUTO) 75 % (42-75); PLATELET COUNT 80 10^3/uL (130-400); WHITE BLOOD COUNT 3.3 10^3/uL (4.3-11.0)
[2020-07-22 05:51] LABS: ALANINE AMINOTRANSFERASE 37 U/L (0-55); ALBUMIN 3.6 GM/DL (3.2-4.5); ALKALINE PHOSPHATASE 42 U/L (40-136); BILIRUBIN,TOTAL 0.4 MG/DL (0.1-1.0); BUN/CREATININE RATIO 17; CARBON DIOXIDE 19 MMOL/L (21-32); CHLORIDE 108 MMOL/L (98-107); CREATININE SERUM 1.15 MG/DL (0.60-1.30); GFR ESTIMATED > 60; GLUCOSE 188 MG/DL (70-105); POTASSIUM 4.8 MMOL/L (3.6-5.0); SODIUM 137 MMOL/L (135-145); TOTAL PROTEIN 6.3 GM/DL (6.4-8.2)
[2020-07-22] MEDS: NS IV 1000 ML 1,000 ML IV SCH ×2 (06:46)
[2020-07-22] MEDS: NOREPINEPHRINE 4 MG/250 ML 250 ML IV SCH (06:47)
[2020-07-22] MEDS: dexAMETHasone 6 MG TAB (DECADRON) PO SCH (06:48)
[2020-07-22] MEDS: inSUlin ASPART (NovoLOG) 1 UNIT/0.01 ML (CHARGE PER UNIT) SC SCH ×8 (06:48→21:36)
[2020-07-22] MEDS: CEFEPIME 1,000 MG/SWFI 10 ML IV PUSH IV SCH ×4 (06:49)
[2020-07-22] MEDS ORDERED: hydrALAZINE (APESOLINE) 20 MG/ML VIAL IV PRN (07:30)
[2020-07-22] MEDS: PANTOPRAZOLE 40 MG (PROTONIX) VIAL IV SCH (09:06)
[2020-07-22] MEDS: amLODIPine 10 MG (NORVASC) TAB PO SCH (09:11)
[2020-07-22] MEDS: OSELTAMIVIR 75 MG (TAMIFLU) CAPSULE PO SCH ×2 (09:31→20:30)
[2020-07-22] MEDS ORDERED: REMDESIVIR 200 MG/NS 250 ML IVPB IV NR ×2 (10:00)
--- NOTE | 2020-07-22 10:24 | Progress Note - Hospitalist ---
Subjective HPI/CC On Admission Date Seen by Provider: Jul 23, 2020 Time Seen by Provider: 10:00 CC: SOB with fever with Covid HPI: This is a male clinic pt of [facility] who presents to the ER with SOB after his became positive with Covid, had been staying in a motel to prevent spreading the infection but worsened to the point of presenting to the ER after going to urgent care due to SOB. He is a renal transplant pt from . All labs appear to be stable. Dr. Ruiz has been contacted and we will plan on supportive care here at the hospital in cardiac stepdown. He does not speak Greenlandic so he was updated with basic medical irish by this examiner during the use of PPE. Subjective/Events-last exam Pt doing a lot better Less hypoxic Maintain on 2 L of oxygen Labs remain stable Eating and drinking well Labs reviewed, creatinine 1.2 Review of Systems General: Fatigue, Malaise Pulmonary: Dyspnea, Cough Focused Exam Lactate Level 07/21/20 17:03: Lactic Acid Level 0.66 Objective Exam Vital Signs Vital Signs Date Time Temp Pulse Resp B/P (MAP) Pulse Ox O2 Delivery O2 Flow Rate FiO2 07/23/20 03:45 37.2 86 20 136/73 (94) 93 Room Air 07/22/20 16:34 2.00 Capillary Refill : Less Than 3 Seconds General Appearance: No Apparent Distress, WD/WN, Chronically ill Respiratory: Chest Non Tender, Lungs Clear, Normal Breath Sounds, No Accessory Muscle Use, No Respiratory Distress, Decreased Breath Sounds Cardiovascular: Regular Rate, Rhythm, No Edema, No Gallop, No JVD, No Murmur, Normal Peripheral Pulses Neurologic/Psychiatric: Alert, Oriented x3, No Motor/Sensory Deficits, Normal Mood/Affect Results/Procedures Lab Laboratory Tests 07/23/20 04:55 Patient resulted labs reviewed. Assessment/Plan Assessment and Plan Assess & Plan/Chief Complaint Assessment: COVID PNA Influenza A Hypoxia Renal transplant status Former smoker DM Plan: CSD COVID treatment O2 Diagnosis/Problems Diagnosis/Problems (1) Severe acute respiratory syndrome coronavirus 2 (SARS-CoV-2) detected Status: Acute (2) Acute respiratory failure with hypoxia Status: Acute (3) Influenza A Status: Acute (4) History of kidney transplant Status: Acute Clinical Quality Measures DVT/VTE Risk/Contraindication: Risk Factor Score Per Nursin RFS Level Per Nursing on Admit: 3=High HOOD,DIDIER DO Jul 22, 2020 10:24
[2020-07-22] MEDS ORDERED: TROUGH ORDER-PHARMACY XX NR (12:00)
[2020-07-22] MEDS: ENOXAPARIN 40 MG/0.4 ML (LOVENOX) SYR SC SCH (14:17)
[2020-07-22] MEDS ORDERED: REMDESIVIR INJ (NON-FORMULARY) 100 MG in NS (IVPB) 230 ML IV SCH (15:00)
[2020-07-22] MEDS ORDERED: LIPA1CAP4 PO ×2 (15:10)
[2020-07-22] MEDS ORDERED: INSU100I14 SQ ×2 (15:10)
[2020-07-22] MEDS ORDERED: GABA300C PO (15:10)
[2020-07-22] MEDS ORDERED: INSU100I29 SC (15:10)
[2020-07-22] MEDS ORDERED: NF-MAG64T PO (15:10)
[2020-07-22] MEDS ORDERED: MYCO180T3 PO (15:10)
[2020-07-22] MEDS ORDERED: ASPI-1238 PO (15:10)
[2020-07-22] MEDS ORDERED: BRIM5DRO2 OU (15:10)
[2020-07-22] MEDS ORDERED: ATOR10TA66 PO (15:10)
[2020-07-22] MEDS ORDERED: CARV25TA PO (15:10)
[2020-07-22] MEDS ORDERED: INSU100I14 SC (15:10)
[2020-07-22] MEDS ORDERED: TACR1CAP24 PO (15:10)
[2020-07-22] MEDS ORDERED: LOSA25TA41 PO (15:10)
[2020-07-22] MEDS ORDERED: PRED5DRO17 OD (15:10)
[2020-07-22] MEDS ORDERED: PRED5TAB PO (15:16)
[2020-07-22] MEDS ORDERED: CHOL20003 PO (15:16)
--- NOTE | 2020-07-22 15:17 | NUR ---
I WENT THRU THE EXT MED HISTORY, CALLED ROSE KNIGHT ALSO HAD HIS HOME MEDS WITH HIM (FRANCINE MCDONALD WENT THRU THEM WITH ME) TO COMPLETE THE MED REC THE FOLLOWING MEDICATIONS WERE FILLED ON 07-10-2020 AND DO NOT SHOW ON THE EXT MED HISTORY: TACROLIMUS 1MG #60/30DS PREDNISONE 5MG #30/30DS MYCOPHENOLATE 180MG #180/30DS OTC MEDS: VIT D ASPIRIN 81 SLOW-MAG Addendum: 07/22/20 at 1521 by JOSE ANTHONY CPhT I ALSO GOT A CURRENT MED LIST FROM [facility] FAXED TO ME
[2020-07-22] MEDS ORDERED: NON-FORMULARY MEDICATION 1 EA EA (Insulin Aspart (Novolog Flexpen) 10 UNITS) SQ SCH (16:45)
[2020-07-22] MEDS ORDERED: NON-FORMULARY MEDICATION 1 EA EA (Insulin Aspart (Novolog Flexpen) 12 UNITS) SQ SCH (16:45)
[2020-07-22] MEDS ORDERED: NON-FORMULARY MEDICATION 1 EA EA (Insulin Aspart (Novolog Flexpen) 8 UNITS) SC SCH (16:45)
--- NOTE | 2020-07-22 16:46 | NUR ---
PT AGREEABLE TO PLASMA VERIFIED VIA LANGUAGE LINE BY THIS RN ALONG WITH A CHRISTAL RN. PT THEN VOICED CONCERN AND WANTED TO SPEAK TO HIS FAMILY. THIS RN REMAINED IN ROOM WHILE PT SPOKE TO HIS SON, PT'S SON WANTS TO CALL HIS DR AT DUE TO HIS KIDNEY TRANSPLANT. PT IN AGREEMENT WITH THIS AT THIS TIME.
[2020-07-22] MEDS ORDERED: PATIENT MAY USE OWN MEDS, ALL MC SCH (17:00)
--- NOTE | 2020-07-22 17:10 | NUR ---
report via phone taken at this time via phone form Annette Garcia RN.
--- NOTE | 2020-07-22 17:10 | NUR ---
REPORT GIVEN TO Adriano SMITH RN.
--- NOTE | 2020-07-22 17:25 | NUR ---
PT TO ROOM 431 VIA W/C ACCOMPANIED BY Bud RUIZ RN AND PCT. ALL PERSONAL BELONGING SENT DOWN WITH PT.
--- NOTE | 2020-07-22 17:28 | NUR ---
patient to floor at this time via w/c accompanied by TAMARA Coy
[2020-07-22] MEDS ORDERED: LIPASE/AMYLASE/PROTEASE (PANCRELIPASE) 5,000 UNITS CAP PO PRN (17:45)
[2020-07-22] MEDS: prednisoLONE 1% OPTH (PRED FORTE) 5 ML BTL OD SCH ×2 (18:00→20:35)
[2020-07-22] MEDS: LIPASE/AMYLASE/PROTEASE (PANCRELIPASE) 5,000 UNITS CAP PO SCH (18:20)
[2020-07-22] MEDS: GABAPENTIN 300 MG (NEURONTIN) CAP PO SCH (20:30)
[2020-07-22] MEDS: MYCOPHENOLATE 180 MG TABLET PO SCH (20:32)
[2020-07-22] MEDS: CARVEDILOL 12.5 MG (COREG) TABLET PO SCH (20:33)
[2020-07-22] MEDS: BRIMONIDINE 0.2% (ALPHAGAN) OPHTH SOLN 5 ML BTL OU SCH (20:35)
[2020-07-22] MEDS: TACROLIMUS 1 MG (PROGRAF) CAP NON-FORMULARY PO SCH (20:36)
[2020-07-22] MEDS ORDERED: MYCOPHENOLATE SODIUM 540 MG PO SCH (21:00)
[2020-07-22] MEDS ORDERED: NON-FORMULARY MEDICATION 1 EA EA (Brimonidine Tartrate (Alphagan P) 1 DROP) OU SCH (21:00)
[2020-07-22] MEDS ORDERED: NON-FORMULARY MEDICATION 1 EA EA (Insulin Detemir (Levemir Flextouch) 26 UNITS) SC SCH (21:00)
[2020-07-22] MEDS ORDERED: NON-FORMULARY MEDICATION 1 EA EA (Carvedilol 25 MG) PO SCH (21:00)
--- NOTE | 2020-07-22 21:18 | NUR ---
PATIENT'S BLOOD SUGAR 57. ORANGE JUICE GIVEN. DR. HOOD NOTIFIED. DR. HOOD ORDERED TO HOLD LEVEMIR AT THIS TIME. BLOOD SUGAR RECHECKED AND WAS 72. ADDITIONAL ORANGE JUICE AND PROTEIN GIVEN.
[2020-07-23 03:45] VITALS: BP 136/73
[2020-07-23 05:21] LABS: BASOPHILS % (AUTO) 0 % (0-10); EOSINOPHILS % (AUTO) 0 % (0-10); HEMATOCRIT 40 % (40-54); HEMOGLOBIN 13.3 G/DL (13.3-17.7); LYMPHOCYTES # (AUTO) 1.3 X 10^3 (1.0-4.0); LYMPHOCYTES % (AUTO) 20 % (12-44); MEAN CORPUSCULAR HEMOGLOBIN 30 PG (25-34); MEAN CORPUSCULAR HGB CONC 33 G/DL (32-36); MEAN CORPUSCULAR VOLUME 92 FL (80-99); MEAN PLATELET VOLUME 11.2 FL (7.4-10.4); MONOCYTES # (AUTO) 0.8 X 10^3 (0.0-1.0); MONOCYTES % (AUTO) 11 % (0-12); NEUTROPHILS # (AUTO) 4.6 X 10^3 (1.8-7.8); NEUTROPHILS % (AUTO) 69 % (42-75); PLATELET COUNT 106 10^3/uL (130-400); WHITE BLOOD COUNT 6.7 10^3/uL (4.3-11.0)
[2020-07-23 05:53] LABS: ALANINE AMINOTRANSFERASE 59 U/L (0-55); ALBUMIN 3.5 GM/DL (3.2-4.5); ALKALINE PHOSPHATASE 37 U/L (40-136); BILIRUBIN,TOTAL 0.4 MG/DL (0.1-1.0); BUN/CREATININE RATIO 21; CALCIUM 8.1 MG/DL (8.5-10.1); CARBON DIOXIDE 23 MMOL/L (21-32); CHLORIDE 106 MMOL/L (98-107); GFR ESTIMATED > 60; GLUCOSE 108 MG/DL (70-105); POTASSIUM 4.1 MMOL/L (3.6-5.0); SODIUM 136 MMOL/L (135-145); TOTAL PROTEIN 6.1 GM/DL (6.4-8.2)
[2020-07-23] MEDS: inSUlin ASPART (NovoLOG) 1 UNIT/0.01 ML (CHARGE PER UNIT) SC SCH ×7 (06:45→21:16)
[2020-07-23] MEDS: dexAMETHasone 6 MG TAB (DECADRON) PO SCH (06:52)
[2020-07-23 07:45] VITALS: BP 153/77
--- NOTE | 2020-07-23 07:52 | NUR ---
executive community planning notified at this time of need to obtain outside results of positive COVID-19 results from [facility] urgent care.
[2020-07-23] MEDS: LIPASE/AMYLASE/PROTEASE (PANCRELIPASE) 5,000 UNITS CAP PO SCH ×3 (08:22→17:22)
[2020-07-23] MEDS: VITAMIN D3 25 MCG (1,000 UNITS) TABLET PO SCH (08:23)
[2020-07-23] MEDS: LOSARTAN 25 MG (COZAAR) TAB PO SCH (08:23)
[2020-07-23] MEDS: CARVEDILOL 12.5 MG (COREG) TABLET PO SCH ×2 (08:23→21:13)
[2020-07-23] MEDS: OSELTAMIVIR 75 MG (TAMIFLU) CAPSULE PO SCH ×2 (08:23→21:13)
[2020-07-23] MEDS: amLODIPine 10 MG (NORVASC) TAB PO SCH (08:23)
[2020-07-23] MEDS: MYCOPHENOLATE 180 MG TABLET PO SCH ×2 (08:24→21:12)
[2020-07-23] MEDS: TACROLIMUS 1 MG (PROGRAF) CAP NON-FORMULARY PO SCH ×2 (08:24→21:12)
[2020-07-23] MEDS: BRIMONIDINE 0.2% (ALPHAGAN) OPHTH SOLN 5 ML BTL OU SCH ×2 (08:25→21:11)
[2020-07-23] MEDS: PANTOPRAZOLE 40 MG (PROTONIX) VIAL IV SCH (08:25)
[2020-07-23] MEDS: prednisoLONE 1% OPTH (PRED FORTE) 5 ML BTL OD SCH ×4 (08:26→21:11)
[2020-07-23] MEDS: GABAPENTIN 300 MG (NEURONTIN) CAP PO SCH ×3 (08:30→21:12)
[2020-07-23] MEDS: ASPIRIN E.C. 81 MG (ECOTRIN) TAB PO SCH (08:30)
[2020-07-23] MEDS ORDERED: NON-FORMULARY MEDICATION 1 EA EA (Cholecalciferol (Vitamin D3) (Vitamin D3) 50 MCG) PO SCH (09:00)
--- NOTE | 2020-07-23 09:32 | Progress Note - Hospitalist ---
Subjective HPI/CC On Admission Date Seen by Provider: Jul 23, 2020 Time Seen by Provider: 10:00 CC: SOB with fever with Covid HPI: This is a male clinic pt of [facility] who presents to the ER with SOB after his became positive with Covid, had been staying in a motel to prevent spreading the infection but worsened to the point of presenting to the ER after going to urgent care due to SOB. He is a renal transplant pt from . All labs appear to be stable. Dr. Ruiz has been contacted and we will plan on supportive care here at the hospital in cardiac stepdown. He does not speak Armenian so he was updated with basic medical turkmen by this examiner during the use of PPE. Subjective/Events-last exam Pt doing pretty well Weaned off O2 Awaiting plasma Labs look good Kidney function good considering renal transplant Restarted all of his home medicine yesterday Review of Systems General: Fatigue, Malaise Neurological: Weakness Focused Exam Lactate Level 07/21/20 17:03: Lactic Acid Level 0.66 Objective Exam Vital Signs Vital Signs Date Time Temp Pulse Resp B/P (MAP) Pulse Ox O2 Delivery O2 Flow Rate FiO2 07/23/20 23:41 36.7 78 18 105/60 (75) 91 Room Air 07/22/20 16:34 2.00 Capillary Refill : Less Than 3 Seconds General Appearance: No Apparent Distress, WD/WN HEENT: PERRL/EOMI, TMs Normal, Normal ENT Inspection, Pharynx Normal, Moist Muc ous Membranes Neck: Full Range of Motion, Normal Inspection, Non Tender, Supple, Carotid Bruit Respiratory: Chest Non Tender, Lungs Clear, Normal Breath Sounds, No Accessory Muscle Use, No Respiratory Distress Cardiovascular: Regular Rate, Rhythm, No Edema, No Gallop, No JVD, No Murmur, Normal Peripheral Pulses Gastrointestinal: Normal Bowel Sounds, No Organomegaly, No Pulsatile Mass, Non Tender, Soft Back: Normal Inspection, No CVA Tenderness, No Vertebral Tenderness Extremity: Normal Capillary Refill, Normal Inspection, Normal Range of Motion, Non Tender, No Calf Tenderness, No Pedal Edema Neurologic/Psychiatric: Alert, Oriented x3, No Motor/Sensory Deficits, Normal Mood/Affect Skin: Normal Color, Warm/Dry Lymphatic: No Adenopathy Results/Procedures Lab Patient resulted labs reviewed. Assessment/Plan Assessment and Plan Assess & Plan/Chief Complaint Assessment: COVID PNA Influenza A Hypoxia Renal transplant status Former smoker DM Plan: CSD COVID treatment O2 07/23/20: Awaiting plasma Monitor creatinine Home perhaps tomorrow Doing much better Diagnosis/Problems Diagnosis/Problems (1) Severe acute respiratory syndrome coronavirus 2 (SARS-CoV-2) detected Status: Acute (2) Acute respiratory failure with hypoxia Status: Acute (3) Influenza A Status: Acute (4) History of kidney transplant Status: Acute Clinical Quality Measures DVT/VTE Risk/Contraindication: Risk Factor Score Per Nursin RFS Level Per Nursing on Admit: 3=High DIDIER HOOD DO Jul 23, 2020 09:31
[2020-07-23] MEDS: REMDESIVIR 100 MG/NS 250 ML IVPB IV SCH ×2 (10:15)
[2020-07-23] MEDS: MAGNESIUM OXIDE (MAG-OX)400 MG TAB PO SCH (11:04)
[2020-07-23] MEDS ORDERED: MAGNESIUM CHLORIDE 64 MG PO SCH (12:00)
[2020-07-23 12:10] VITALS: BP 141/83
[2020-07-23] MEDS: ENOXAPARIN 40 MG/0.4 ML (LOVENOX) SYR SC SCH (15:34)
[2020-07-23 15:58] VITALS: BP 158/80
--- NOTE | 2020-07-23 18:05 | NUR ---
THIS RN SPOKE WITH THE PATIENT'S DAUGHTER IN RE: CONVALESCENT PLASMA INFUSION. THE DAUGHTER REPORTS TO THIS RN THAT SHE WILL CONTACT [facility] (WHERE HIS TRANSPLANT DOCTOR RESIDES) ON 07/24/2020 TO GET PERMISSION TO INFUSE THE PLASMA. SHE WILL CALL THE PRIMARY RN ON 07/24/20 TO APPROVE OR DECLINE THE INFUSION OF THE ORDERED PLASMA BY 10:00 A.M. . THIS RN WILL REPORT THIS TO THE ONCOMING SHIFT AT SHIFT CHANGE. THE PLASMA IN THE LAB WILL ON 07/24/2020 AT 1407 IF NOT USED.
[2020-07-23 19:32] VITALS: BP 122/65
[2020-07-23 23:41] VITALS: BP 105/60
[2020-07-24 04:20] VITALS: BP 126/66
[2020-07-24] MEDS: inSUlin ASPART (NovoLOG) 1 UNIT/0.01 ML (CHARGE PER UNIT) SC SCH ×5 (05:46→16:26)
[2020-07-24 06:23] LABS: BASOPHILS % (AUTO) 0 % (0-10); EOSINOPHILS % (AUTO) 0 % (0-10); HEMATOCRIT 38 % (40-54); HEMOGLOBIN 12.7 G/DL (13.3-17.7); LYMPHOCYTES # (AUTO) 0.9 X 10^3 (1.0-4.0); LYMPHOCYTES % (AUTO) 17 % (12-44); MEAN CORPUSCULAR HEMOGLOBIN 30 PG (25-34); MEAN CORPUSCULAR HGB CONC 33 G/DL (32-36); MEAN CORPUSCULAR VOLUME 91 FL (80-99); MONOCYTES # (AUTO) 0.7 X 10^3 (0.0-1.0); MONOCYTES % (AUTO) 13 % (0-12); NEUTROPHILS # (AUTO) 3.6 X 10^3 (1.8-7.8); NEUTROPHILS % (AUTO) 70 % (42-75); PLATELET COUNT 108 10^3/uL (130-400); WHITE BLOOD COUNT 5.2 10^3/uL (4.3-11.0)
[2020-07-24] MEDS: dexAMETHasone 6 MG TAB (DECADRON) PO SCH (06:23)
[2020-07-24 06:32] LABS: ALBUMIN 3.5 GM/DL (3.2-4.5); CHLORIDE 107 MMOL/L (98-107); POTASSIUM 4.4 MMOL/L (3.6-5.0); SODIUM 138 MMOL/L (135-145)
[2020-07-24 06:34] LABS: CALCIUM 8.3 MG/DL (8.5-10.1)
[2020-07-24 06:35] LABS: GLUCOSE 73 MG/DL (70-105)
[2020-07-24 06:36] LABS: CARBON DIOXIDE 21 MMOL/L (21-32)
[2020-07-24 06:37] LABS: BILIRUBIN,TOTAL 0.4 MG/DL (0.1-1.0)
[2020-07-24 06:38] LABS: ALKALINE PHOSPHATASE 38 U/L (40-136); CREATININE SERUM 1.07 MG/DL (0.60-1.30); GFR ESTIMATED > 60
[2020-07-24 06:39] LABS: BUN/CREATININE RATIO 24
[2020-07-24 06:41] LABS: ALANINE AMINOTRANSFERASE 50 U/L (0-55)
[2020-07-24 07:51] VITALS: BP 121/69
[2020-07-24] MEDS: amLODIPine 10 MG (NORVASC) TAB PO SCH (07:57)
[2020-07-24] MEDS: LOSARTAN 25 MG (COZAAR) TAB PO SCH (07:57)
[2020-07-24] MEDS: CARVEDILOL 12.5 MG (COREG) TABLET PO SCH (07:57)
[2020-07-24] MEDS: LIPASE/AMYLASE/PROTEASE (PANCRELIPASE) 5,000 UNITS CAP PO SCH ×2 (07:58→13:30)
[2020-07-24] MEDS: OSELTAMIVIR 75 MG (TAMIFLU) CAPSULE PO SCH (07:58)
[2020-07-24] MEDS: VITAMIN D3 25 MCG (1,000 UNITS) TABLET PO SCH (07:58)
[2020-07-24] MEDS: ASPIRIN E.C. 81 MG (ECOTRIN) TAB PO SCH (07:58)
[2020-07-24] MEDS: GABAPENTIN 300 MG (NEURONTIN) CAP PO SCH ×2 (07:58→13:30)
[2020-07-24] MEDS: prednisoLONE 1% OPTH (PRED FORTE) 5 ML BTL OD SCH ×3 (07:59→16:27)
[2020-07-24] MEDS: PANTOPRAZOLE 40 MG (PROTONIX) VIAL IV SCH (07:59)
[2020-07-24] MEDS: TACROLIMUS 1 MG (PROGRAF) CAP NON-FORMULARY PO SCH (08:00)
[2020-07-24] MEDS: BRIMONIDINE 0.2% (ALPHAGAN) OPHTH SOLN 5 ML BTL OU SCH (08:00)
[2020-07-24] MEDS: MYCOPHENOLATE 180 MG TABLET PO SCH (08:01)
[2020-07-24] MEDS: REMDESIVIR 100 MG/NS 250 ML IVPB IV SCH ×2 (08:32)
[2020-07-24] MEDS ORDERED: NS IV 500 ML 500 ML IV ONE (10:15)
[2020-07-24] MEDS ORDERED: AMLO10TA7 PO (10:59)
[2020-07-24] MEDS ORDERED: OSLT75C PO (10:59)
[2020-07-24] MEDS ORDERED: RELABEL FOR HOME USE MC SCH (11:00)
--- NOTE | 2020-07-24 11:00 | Discharge Summary ---
Discharge Summary Hospital Course Was the Problem List Reviewed?: Yes Problems/Dx: (1) Severe acute respiratory syndrome coronavirus 2 (SARS-CoV-2) detected Status: Acute (2) Acute respiratory failure with hypoxia Status: Acute (3) Influenza A Status: Acute (4) History of kidney transplant Status: Acute Hospital Course Date of Admission: Jul 21, 2020 at 13:25 Admission Diagnosis : Family Physician/Provider: [place] Date of Discharge: 07/24/20 Discharge Diagnosis: Assessment: COVID PNA Influenza A Hypoxia Renal transplant status Former smoker DM Plan: CSD COVID treatment O2 07/23/20: Awaiting plasma Monitor creatinine Home perhaps tomorrow Doing much better Hospital Course: Hospital course: Pt had an uneventful hospital course for four days when he was admitted for acute respiratory failure and hypoxia due to Covid-19 and influenza A Remdesivir was started along with plasma convalescent plasma for Covid. Pt overall did well, ended up requiring home oxygen at time of discharge and Pt was stable and agreeable for going home with close follow-up with [facility] and kidney transplant. Labs and Pending Lab Test: Laboratory Tests 07/23/20 16:47: Glucometer 394H 07/23/20 19:58: Glucometer 259H 07/24/20 05:41: Glucometer 68L 07/24/20 05:51: White Blood Count 5.2, Red Blood Count 4.18L, Hemoglobin 12.7L, Hematocrit 38L, Mean Corpuscular Volume 91, Mean Corpuscular Hemoglobin 30, Mean Corpuscular Hemoglobin Concent 33, Red Cell Distribution Width 12.4, Platelet Count 108L, Mean Platelet Volume 11.0H, Neutrophils (%) (Auto) 70, Lymphocytes (%) (Auto) 17, Monocytes (%) (Auto) 13H, Eosinophils (%) (Auto) 0, Basophils (%) (Auto) 0, Neutrophils # (Auto) 3.6, Lymphocytes # (Auto) 0.9L, Monocytes # (Auto) 0.7, Eosinophils # (Auto) 0.0, Basophils # (Auto) 0.0, Sodium Level 138, Potassium Level 4.4, Chloride Level 107, Carbon Dioxide Level 21, Anion Gap 10, Blood Urea Nitrogen 26H, Creatinine 1.07, Estimat Glomerular Filtration Rate > 60, BUN/Creatinine Ratio 24, Glucose Level 73, Calcium Level 8.3L, Corrected Calcium 8.7, Total Bilirubin 0.4, Aspartate Amino Transf (AST/SGOT) 36H, Alanine Am inotransferase (ALT/SGPT) 50, Alkaline Phosphatase 38L, Total Protein 6.0L, Albumin 3.5 Microbiology 07/21/20 Urine Culture - Final, Complete 3 or more isolates 07/21/20 Influenza Types A,B Antigen (UMBERTO) - Final, Complete 07/21/20 Blood Culture - Preliminary, Resulted No growth Home Meds Active Tamiflu (Oseltamivir Phosphate) 75 Mg Cap 75 Mg PO BID 2 Days Amlodipine Besylate 10 Mg Tablet 10 Mg PO DAILY Reported Vitamin D3 (Cholecalciferol (Vitamin D3)) 50 Mcg Capsule 50 Mcg PO DAILY Prednisone 5 Mg Tablet 5 Mg PO DAILY Prograf (Tacrolimus) 1 Mg Capsule 1 Mg PO BID Slow-Mag (Magnesium Chloride) 64 Mg Tab 64 Mg PO 1200 Aspirin EC (Aspirin) 81 Mg Tablet. 81 Mg PO DAILY Mycophenolic Acid (Mycophenolate Sodium) 180 Mg Tablet. 540 Mg PO BID TAKES 3 (180MG) TABS Atorvastatin Calcium 10 Mg Tablet 10 Mg PO HS Neurontin (Gabapentin) 300 Mg Capsule 300 Mg PO TID Losartan Potassium 25 Mg Tablet 50 Mg PO DAILY TAKES 2 (25MG) TABS Carvedilol 25 Mg Tablet 25 Mg PO BID Alphagan P (Brimonidine Tartrate) 5 Ml Drops 1 Drop OU BID Levemir Flextouch (Insulin Detemir) 100 Unit/1 Ml Insuln.pen 26 Units SC BID Novolog Flexpen (Insulin Aspart) 300 Units/3 Ml Solution 10 Units SQ 1800 W/ SUPPER Novolog Flexpen (Insulin Aspart) 300 Units/3 Ml Solution 12 Units SQ 1200 W/ LUNCH Novolog Flexpen (Insulin Aspart) 300 Units/3 Ml Solution 8 Units SC DAILY W/ BREAKFAST Prednisolone Acetate 5 Ml Drops.susp 1 Drops OD QID Creon 24,000 Units Capsule (Lipase/Protease/Amylase) 1 Each Capsule.dr 1 Each PO BID WITH SNACKS Creon 24,000 Units Capsule (Lipase/Protease/Amylase) 1 Each Capsule. 2 Ea PO TIDWM TAKES 2 CAPS THREE TIMES DAILY WITH MEALS AND 1 CAP WITH A SNACK Assessment/Pt Instructions [facility] 1 week Discharge Planning: <30 minutes discharge planning Discharge Instructions Discharge Diet: Regular Diet Activity as Tolerated: Yes Discharge Physical Examination Vital Signs Vital Signs Date Time Temp Pulse Resp B/P (MAP) Pulse Ox O2 Delivery O2 Flow Rate FiO2 07/24/20 07:51 35.3 75 20 121/69 (86) 91 Room Air 07/22/20 16:34 2.00 General Appearance: No Apparent Distress, WD/WN, Chronically ill Respiratory: Lungs Clear, Normal Breath Sounds Cardiovascular: Regular Rate, Rhythm Neurologic/Psychiatric: Alert, Oriented x3 Allergies: Coded Allergies: No Known Drug Allergies (Verified , 06/27/07) Discharge Summary Date of Admission Jul 21, 2020 at 13:25 Date of Discharge Discharge Date: Jul 24, 2020 Admission Diagnosis Assessment: COVID PNA Influenza A Hypoxia Renal transplant status Former smoker DM Plan: CSD COVID treatment O2 Discharge Diagnosis Assessment: COVID PNA Influenza A Hypoxia Renal transplant status Former smoker DM Plan: CSD COVID treatment O2 07/23/20: Awaiting plasma Monitor creatinine Home perhaps tomorrow Doing much better (1) Severe acute respiratory syndrome coronavirus 2 (SARS-CoV-2) detected Status: Acute (2) Acute respiratory failure with hypoxia Status: Acute (3) Influenza A Status: Acute (4) History of kidney transplant Status: Acute Clinical Quality Measures DVT/VTE Risk/Contraindication: Risk Factor Score Per Nursin RFS Level Per Nursing on Admit: 3=High DIDIER HOOD DO Jul 24, 2020 11:00
[2020-07-24] MEDS: MAGNESIUM OXIDE (MAG-OX)400 MG TAB PO SCH (11:10)
[2020-07-24 11:42] VITALS: BP 137/68
[2020-07-24] MEDS ORDERED: OSELTAMIVIR 75 MG (TAMIFLU) CAPSULE PO SCH (11:45)
[2020-07-24] MEDS: ENOXAPARIN 40 MG/0.4 ML (LOVENOX) SYR SC SCH (13:30)
--- NOTE | 2020-07-24 14:04 | NUR ---
AFTER 8 MINUTES ON ROOM PT DESATURATED TO 87%. PT WAS PLACED ON 2L NC AND PT CAME UP TO 91%. PT REQUIRES 2L NC AT REST. Addendum: 07/24/20 at 1406 by ZOILA ROSE RT Amended: Links added.
--- NOTE | 2020-07-24 14:10 | NUR ---
THIS RN SPOKE WITH TRACY (DAUGHTER) IN GREAT DETAIL OF WHAT DISCHARGE ORDERS HAD BEEN GIVEN FOR THIS PATIENT. TAMIFLU RELABELED FOR HOME USE AND GIVEN TO PATIENT WITH HIS DISCHARGE PAPERS. THIS RN WILL NOTIFY RT OF NEED FOR 02 QUALIFICATION NEEDS BEFORE DISCHARGE BACK TO HOME LATER THIS AFTERNOON. THIS RN WILL CONT TO MONITOR THIS PATIENT THROUGHOUT THE REMAINDER OF HIS STAY. Addendum: 07/24/20 at 1414 by VIC SMITH RN FOLLOW UP APPOINTMENT MADE WITH [facility] FOR ONE WEEK FROM DISCHARGE VIA PHONE. DR. LAMB HIS TRANSPLANT DOCTOR WILL CONTACT THE PATIENT AND SETUP A FOLLOW UP WITH THE PATIENT IN A COUPLE WEEKS FROM DISCHARGE.
--- NOTE | 2020-07-24 15:58 | NUR ---
CM FINALIZED DISCHARGE PLAN: Patient is dismissing to home self care today. He needs new continuous oxygen. Contacted his son Tomas and they have elected [facility] for their medical equipment need. Referral faxed and spoke with Neel at [facility]. They will deliver a portable concentrator to the hospital and the patient will use that through the weekend. Also talked with Neel about f/u with Tomas about cost of the new medical equipment he reported that he will talk with them. No further needs at this time.
[2020-07-24 16:25] VITALS: BP 118/68
[2020-07-24 17:05] VITALS: BP 118/68
[2020-07-25] MEDS ORDERED: PANTOPRAZOLE 40 MG (PROTONIX) TAB PO SCH (09:00)
--- NOTE | 2020-07-27 13:19 | NUR ---
THIS RN NOTES THAT REMDESIVIR DUE ON 07/24 WAS DOCUMENTED BY THIS RN LATE ( 07/27/2020 ) ON THE EMAR, BECAUSE THIS RN FORGOT TO SCAN THE IV MEDICATION BEFORE ADMINISTERING THE MEDICATION TO THIS PATIENT.
== END 2020-07-24 17:05 | disposition home or self-care (01) | DRG 177 ==
LOC: EDUNIT# 09:42 → ER 09:43 → ICU 13:25 → 4TH 07-22 17:13
PROVIDERS: ADMIT Internal Medicine; ATTEND Internal Medicine
PROC: XW033E5 Introduction of Remdesivir Anti-infective into Peripheral Vein, Percutaneous Approach, New Technology Group 5 (ICD-10-PCS; principal; 2020-07-21)
PROC: XW13325 Transfusion of Convalescent Plasma (Nonautologous) into Peripheral Vein, Percutaneous Approach, New Technology Group 5 (ICD-10-PCS; 2020-07-21)
DX: U07.1 COVID-19 (principal); J12.89 Other viral pneumonia; J10.08 Influenza due to other identified influenza virus with other specified pneumonia; J96.01 Acute respiratory failure with hypoxia; Z94.0 Kidney transplant status; D69.6 Thrombocytopenia, unspecified; E11.40 Type 2 diabetes mellitus with diabetic neuropathy, unspecified; I10 Essential (primary) hypertension; E78.00 Pure hypercholesterolemia, unspecified; H40.9 Unspecified glaucoma; Z87.891 Personal history of nicotine dependence; Z79.4 Long term (current) use of insulin; Z86.73 Personal history of transient ischemic attack (TIA), and cerebral infarction without residual deficits
CPT/HCPCS: 36415; 71045; 80053; 81000; 82728; 82962; 83605; 83735; 83880; 84100; 84145; 85025; 85379; 85610; 85730; 86141; 86900; 86901; 87040; 87088; 87804; 94761

== ENCOUNTER 2020-07-29 01:10 | Emergency (ER) | payer MEDICARE, MEDICAID ==
[~2020-07-29] VITALS: Ht 167 cm; Wt 87.5 kg
[~2020-07-29 01:10] MED LIST changes: +AMLO10TA7 PO; +ASPI-1238 PO; +ATOR10TA66 PO; +BRIM5DRO2 OU; +CARV25TA PO; +CHOL20003 PO; +GABA300C PO; +INSU100I14 SC; +INSU100I14 SQ; +INSU100I29 SC; +LIPA1CAP4 PO; +LOSA25TA41 PO; +MYCO180T3 PO; +NF-MAG64T PO; +OSLT75C PO; +PRED5DRO17 OD; +PRED5TAB PO; +TACR1CAP24 PO
--- NOTE | 2020-07-29 01:23 | NUR ---
PATIENT ARRIVES VIA EMS TO ROOM 10 IN RESPIRITORY DISTRESS. BIPAP WAS TRIED AND UNSUCCESSFUL FOR THIS PATIENT D/T SPO2 REMAINING IN THE 80'S. DR BROOKS INTUBATED PATIENT AT 0207 COLOR CHANGE NOTED TO ETCO2 DEVICE, ETT 25 AT THE [facility] WITH A 7.5MM ET TUBE PLACED ON VENT BY RESPIRITORY THERAPY.
[2020-07-29] MEDS ORDERED: ETOMIDATE IV SOLN 20 MG/10 ML VIAL IV ONE (01:24)
[2020-07-29] MEDS ORDERED: fentaNYL INJECTION 100 MCG/2 ML AMP IV ONE (01:24)
[2020-07-29] MEDS ORDERED: SUCCINYLCHOLINE INJ 100 MG/5 ML SYR/VIAL INJ ONE (01:24)
[2020-07-29] MEDS ORDERED: ROCURONIUM 10 MG/ML 5 ML SYRINGE IV ONE (01:24)
[2020-07-29] MEDS ORDERED: MIDAZOLAM 5 MG/5 ML (VERSED) VIAL IJ ONE (01:24)
[2020-07-29] MEDS ORDERED: ETOMIDATE IV SOLN 20 MG/10 ML VIAL ONE ×2 (01:28→01:54)
[2020-07-29] MEDS ORDERED: NS IV 1000 ML 1,000 ML ONE (01:30)
[2020-07-29] MEDS ORDERED: PROPOFOL DRIP (ICU) 100 ML IV ONE (01:36)
[2020-07-29] MEDS ORDERED: PROPOFOL INJECTION 50 ML IV SCH (01:45)
[2020-07-29 01:56] LABS: BASOPHILS % (AUTO) 0 % (0-10); EOSINOPHILS % (AUTO) 0 % (0-10); HEMATOCRIT 41 % (40-54); HEMOGLOBIN 13.9 G/DL (13.3-17.7); LYMPHOCYTES # (AUTO) 0.5 X 10^3 (1.0-4.0); LYMPHOCYTES % (AUTO) 4 % (12-44); MEAN CORPUSCULAR HEMOGLOBIN 31 PG (25-34); MEAN CORPUSCULAR HGB CONC 34 G/DL (32-36); MEAN CORPUSCULAR VOLUME 90 FL (80-99); MEAN PLATELET VOLUME 10.7 FL (7.4-10.4); MONOCYTES # (AUTO) 0.8 X 10^3 (0.0-1.0); MONOCYTES % (AUTO) 7 % (0-12); NEUTROPHILS # (AUTO) 11.2 X 10^3 (1.8-7.8); NEUTROPHILS % (AUTO) 89 % (42-75); PLATELET COUNT 202 10^3/uL (130-400); WHITE BLOOD COUNT 12.6 10^3/uL (4.3-11.0)
[2020-07-29 02:00] LABS: ALBUMIN 3.6 GM/DL (3.2-4.5); POTASSIUM 4.6 MMOL/L (3.6-5.0)
[2020-07-29 02:02] LABS: TOTAL PROTEIN 6.7 GM/DL (6.4-8.2)
[2020-07-29 02:04] LABS: BILIRUBIN,TOTAL 0.9 MG/DL (0.1-1.0)
[2020-07-29 02:06] LABS: CREATININE SERUM 1.78 MG/DL (0.60-1.30)
[2020-07-29 02:22] LABS: INR 1.5 (0.8-1.4); PARTIAL THROMBOPLASTIN TIME 32 SEC (24-35); PROTHROMBIN TIME PATIENT 18.1 SEC (12.2-14.7)
[2020-07-29 02:23] LABS: FIBRIN DEGRADATION PRODUCTS > 20.00 UG/ML (0.00-0.49)
[2020-07-29 02:37] LABS: ANISOCYTOSIS SLIGHT; BAND NEUTROPHILS 1 %; LYMPHOCYTES % (MANUAL) 5 %; MONOCYTES % (MANUAL) 6 %; NEUTROPHILS % (MANUAL) 88 %; POIKILOCYTOSIS SLIGHT
[2020-07-29 02:48] LABS: ABG BASE EXCESS -6.7 MMOL/L (-2.5-2.5); ABG OXYGEN SATURATION 47 % (94-100); ABG PCO2 41 MMHG (35-45); ABG TCO2 20.3 MMOL/L (21.0-31.0)
[2020-07-29 02:51] LABS: ABG PH 7.28 (7.37-7.43)
[2020-07-29 02:52] LABS: ABG PO2 33 MMHG (79-93); ALLENS TEST POSITIVE; INSPIRED O2 100; VENTILATOR YES
[2020-07-29] MEDS ORDERED: PIPERACILLIN SODIUM/TAZOBACTAM 4.5 GM in NS (IVPB) 100 ML IV ONE (03:00)
[2020-07-29] MEDS ORDERED: PIPERACILLIN/TAZO 4.5 GM VIAL (ZOSYN) IV ONE (03:02)
[2020-07-29] MEDS ORDERED: NS (IVPB) 100 ML ONE (03:05)
--- NOTE | 2020-07-29 03:12 | ED General ---
General Chief Complaint: Respiratory Problems Stated Complaint: SOB Nursing Triage Note: Pt here by EMS with significant sob. Pt was admitted to this facility last wk when he was Covid positive. Pt arrives with sp02 in the 60's on NRM by EMS. Nursing Sepsis Screen: No Definite Risk Source of Information: Patient, EMS, Family, Old Records Exam Limitations: Physical Impairments (TIM PEARSON MD) History of Present Illness Date Seen by Provider: Jul 29, 2020 Time Seen by Provider: 01:23 Initial Comments This 64-year-old gentleman presents to the emergency room with respiratory failure, lethargy, and hypoxia. EMS reports initial O2 sat at home was 75%. He had been admitted to the hospital July 21- for treatment of influenza A and COVID-19. He was treated with convalescent plasma and remdesivir. He was discharged home on supplemental oxygen. He has multiple comorbidities including history of renal transplant on review of suppressive therapy, insulin-dependent diabetes, and coronary artery disease status post stenting. He is [place]ian- speaking. EMS administered DuoNeb en route. Patient was noted to be significantly hyperglycemic with blood sugar in the 300s at home. He was given Lovenox and 10 units around midnight. (TIM PEARSON MD) Allergies and Home Medications Allergies Coded Allergies: No Known Drug Allergies (Verified , 06/27/07) Home Medications Amlodipine Besylate 10 Mg Tablet, 10 MG PO DAILY Prescribed by: DIDIER HOOD on 07/24/20 1059 Aspirin 81 Mg Tablet.dr, 81 MG PO DAILY, (Reported) Atorvastatin Calcium 10 Mg Tablet, 10 MG PO HS, (Reported) Brimonidine Tartrate 5 Ml Drops, 1 DROP OU BID, (Reported) Carvedilol 25 Mg Tablet, 25 MG PO BID, (Reported) Cholecalciferol (Vitamin D3) 50 Mcg Capsule, 50 MCG PO DAILY, (Reported) Gabapentin 300 Mg Capsule, 300 MG PO TID, (Reported) Insulin Aspart 300 Units/3 Ml Solution, 8 UNITS SC DAILY W/ BREAKFAST, (Reported) Insulin Aspart 300 Units/3 Ml Solution, 12 UNITS SQ 1200 W/ LUNCH, (Reported) Insulin Aspart 300 Units/3 Ml Solution, 10 UNITS SQ 1800 W/ SUPPER, (Reported) Insulin Detemir 100 Unit/1 Ml Insuln.pen, 26 UNITS SC BID, (Reported) Lipase/Protease/Amylase 1 Each Capsule.dr, 2 EA PO TIDWM, (Reported) TAKES 2 CAPS THREE TIMES DAILY WITH MEALS AND 1 CAP WITH A SNACK Lipase/Protease/Amylase 1 Each Capsule.dr, 1 EACH PO BID WITH SNACKS, (Reported) Losartan Potassium 25 Mg Tablet, 50 MG PO DAILY, (Reported) TAKES 2 (25MG) TABS Magnesium Chloride 64 Mg Tab, 64 MG PO 1200, (Reported) Oseltamivir Phosphate 75 Mg Cap, 75 MG PO BID Prescribed by: DIDIER HOOD on 07/24/20 1059 Prednisolone Acetate 5 Ml Drops.susp, 1 DROPS OD QID, (Reported) Prednisone 5 Mg Tablet, 5 MG PO DAILY, (Reported) Tacrolimus 1 Mg Capsule, 1 MG PO BID, (Reported) Patient Home Medication List Home Medication List Reviewed: Yes (TIM PEARSON MD) Review of Systems Review of Systems Constitutional: see HPI, fever, other (lethargy) EENTM: no symptoms reported Respiratory: see HPI Cardiovascular: no symptoms reported Gastrointestinal: no symptoms reported Genitourinary: see HPI Musculoskeletal: no symptoms reported Skin: no symptoms reported Psychiatric/Neurological: Other (altered mental status) Hematologic/Lymphatic: No Symptoms Reported Immunological/Allergic: see HPI (TIM PEARSON MD) Past Nitmppt-Urwtaq-Cfujll Hx Past Med/Social Hx: Reviewed Nursing Past Med/Soc Hx (TIM PEARSON MD) Patient Social History Type Used: Cigarettes Former Smoker, Quit: Nov 13, 2010 Recent Foreign Travel: No Contact w/Someone Who Travel: No Recent Infectious Disease Expo: Yes Recent Hopitalizations: No (TIM PEARSON MD) Immunizations Up To Date Tetanus Booster (TDap): Unknown Date of Pneumonia Vaccine: Dec 02, 2009 Date of Influenza Vaccine: Aug 26, 2016 (TIM PEARSON MD) Seasonal Allergies Seasonal Allergies: No (TIM PEARSON MD) Past Medical History Surgeries: Yes (right RCR) Appendectomy, Arteriovenous Shunt, Dialysis, Eye Surgery, Kidney Transplant, Orthopedic, Renal Respiratory: No Cardiac: Yes High Cholesterol, Hypertension Neurological: Yes Neuropathy, Stroke Reproductive Disorders: No Sexually Transmitted Disease: No Genitourinary: Yes (status post renal transplant) Renal Failure, Dialysis (prior to transplant) Gastrointestinal: No Musculoskeletal: No Endocrine: Yes Diabetes, Insulin dep HEENT: Yes Cataract, Glaucoma Cancer: No Psychosocial: No Integumentary: No Blood Disorders: No (TIM PEARSON MD) Family Medical History No Pertinent Family Hx (TIM PEARSON MD) Physical Exam-Suspected Sepsis Physical Exam Vital Signs Vital Signs - First Documented 07/29/20 07/29/20 07/29/20 07/29/20 02:56 03:22 05:26 06:38 Temp 39.7 Pulse 67 Resp 22 B/P (MAP) 103/58 (73) Pulse Ox 64 O2 Delivery Non Rebreather O2 Flow Rate 80.00 FiO2 100 (VAL GALINDO) Vital Signs Capillary Refill : Less Than 3 Seconds (TIM PEARSON MD) Blood Pressure Mean: 73 Height, Weight, BMI Height: 5'6.00" Weight: 197lbs. 0.4oz. 89.639802bg; 31.00 BMI Method:Stated General Appearance: WD/WN, Obese, Other (lethargic) HEENT: PERRL/EOMI, Normal ENT Inspection, Pharynx Normal Neck: Normal Inspection Respiratory: Crackles (Right base), Decreased Breath Sounds; No Wheezing; Other (breath sounds greater on the right than the left) Cardiovascular: Regular Rate, Rhythm, No Edema, No Murmur, Normal Peripheral Pulses Gastrointestinal: Normal Bowel Sounds, Non Tender, Soft Extremity: Normal Inspection, No Pedal Edema Neurologic/Psychiatric: Other (lethargic, does try to answer questions but is unable to communicate with the transportation services representative due to BiPAP and background noise. Moves all 4 extremities.) Skin: warm/dry, pallor (TIM PEARSON MD) Focused Exam Lactate Level 07/29/20 01:40: Lactic Acid Level 2.50*H 07/29/20 03:40: Lactic Acid Level 1.47 (VAL GALIDNO) Lactic Acid Level (VAL GALINDO) Procedures/Interventions Date of ETT Placement: Jul 29, 2020 Time of ETT Placement: 02:07 Intubation Method: orotracheal Tube Size: 7.5 Medications: Etomidate, Propofol, Rocuronium, Succinylcholine, Versed Positive End Tide CO2: Yes Breath Sounds after Intubation: right greater than left Intubation Complications: oral-unsuccessful attempt, O2 saturation decreased Post Intubation Xray: Yes Patient was placed on BiPAP for assisted breathing prior to intubation. Induction was achieved with etomidate 20 mg and succinylcholine 100 mg IV at 01:50. BVM ventilation was used until paralysis was complete. Patient was intubated at 01:53. There is positive color change capnography noted. Breath sounds seemed rather diminished on the left. Oxygenation was poor and patient had persistent hypoxia. The ET tube was felt to be in poor position or nonfunctional. Patient was extubated 01:56 and BVM ventilation was continued. Patient began to have movement and was given etomidate 20 mg, rocuronium 100 mg, and Versed 5 mg between 01:59 and 02:04. Patient was then intubated again at 02:07. There was slightly better air movement on the left. Oxygen saturations were in the 80s after suctioning and adjustment of the ventilator settings. Tube was felt to be deep because of poor breath sounds on the left. It was withdrawn to 23 cm at the gums. Propofol drip was started at 02:20. OG tube was placed a 02:30. Patient became hypotensive and propofol drip was adjusted. Blood pressure recovered. He also received a liter of IV normal saline. Sedation was maintained on the propofol drip. Intubation was complicated by poor lung compliance, secretions requiring suctioning, and prolonged hypoxia. The first attempt was made with a number 3 Mac blade. This was later changed to the Jacob vision. (TIM PEARSON MD) Progress/Results/Core Measures Suspected Sepsis Recent Fever Within 48 Hours: Yes Infection Criteria Present: Documented Infection New/Unexplained Altered Menta: No Sepsis Screen: No Definite Risk SIRS Temperature: Pulse: 67 Respiratory Rate: Laboratory Tests 07/29/20 01:36: White Blood Count 12.6H Blood Pressure 103 /58 Mean: 73 07/29/20 01:40: Lactic Acid Level 2.50*H 07/29/20 03:40: Lactic Acid Level 1.47 Laboratory Tests 07/29/20 01:36: Creatinine 1.78H, INR Comment 1.5H, Platelet Count 202, Total Bilirubin 0.9 (TIM PEARSON MD) Results/Orders Lab Results Laboratory Tests Test 07/29/20 01:36 07/29/20 01:40 07/29/20 01:43 07/29/20 02:46 Range/Units White Blood Count 12.6 H 4.3-11.0 10^3/uL Red Blood Count 4.51 4.35-5.85 10^6/uL Hemoglobin 13.9 13.3-17.7 G/DL Hematocrit 41 40-54 % Mean Corpuscular Volume 90 80-99 FL Mean Corpuscular Hemoglobin 31 25-34 PG Mean Corpuscular Hemoglobin Concent 34 32-36 G/DL Red Cell Distribution Width 12.7 10.0-14.5 % Platelet Count 202 130-400 10^3/uL Mean Platelet Volume 10.7 H 7.4-10.4 FL Neutrophils (%) (Auto) 89 H 42-75 % Lymphocytes (%) (Auto) 4 L 12-44 % Monocytes (%) (Auto) 7 0-12 % Eosinophils (%) (Auto) 0 0-10 % Basophils (%) (Auto) 0 0-10 % Neutrophils # (Auto) 11.2 H 1.8-7.8 X 10^3 Lymphocytes # (Auto) 0.5 L 1.0-4.0 X 10^3 Monocytes # (Auto) 0.8 0.0-1.0 X 10^3 Eosinophils # (Auto) 0.0 0.0-0.3 10^3/uL Basophils # (Auto) 0.0 0.0-0.1 10^3/uL Neutrophils % (Manual) 88 % Lymphocytes % (Manual) 5 % Monocytes % (Manual) 6 % Band Neutrophils 1 % Poikilocytosis SLIGHT Basophilic Stippling SLIGHT Anisocytosis SLIGHT Prothrombin Time 18.1 H 12.2-14.7 SEC INR Comment 1.5 H 0.8-1.4 Activated Partial Thromboplast Time 32 24-35 SEC D-Dimer > 20.00 *H 0.00-0.49 UG/ML Sodium Level 130 L 135-145 MMOL/L Potassium Level 4.6 3.6-5.0 MMOL/L Chloride Level 98 98-107 MMOL/L Carbon Dioxide Level 17 L 21-32 MMOL/L Anion Gap 15 H 5-14 MMOL/L Blood Urea Nitrogen 32 H 7-18 MG/DL Creatinine 1.78 H 0.60-1.30 MG/DL Estimat Glomerular Filtration Rate 39 BUN/Creatinine Ratio 18 Glucose Level 384 H 70-105 MG/DL Calcium Level 9.0 8.5-10.1 MG/DL Corrected Calcium 9.3 8.5-10.1 MG/DL Total Bilirubin 0.9 0.1-1.0 MG/DL Aspartate Amino Transf (AST/SGOT) 35 H 5-34 U/L Alanine Aminotransferase (ALT/SGPT) 40 0-55 U/L Alkaline Phosphatase 58 40-136 U/L Lactate Dehydrogenase 436 H 125-220 U/L Troponin I 0.085 H <0.028 NG/ML C-Reactive Protein High Sensitivity 34.63 H 0.00-0.50 MG/DL Total Protein 6.7 6.4-8.2 GM/DL Albumin 3.6 3.2-4.5 GM/DL Procalcitonin 4.87 H <0.10 NG/ML Lactic Acid Level 2.50 *H 0.50-2.00 MMOL/L Glucometer 357 H 70-110 MG/DL Blood Gas Puncture Site UNK Blood Gas Patient Temperature 36.0 Arterial Blood pH 7.28 *L 7.37-7.43 Arterial Blood Partial Pressure CO2 41 35-45 MMHG Arterial Blood Partial Pressure O2 33 *L 79-93 MMHG Arterial Blood HCO3 19 L 23-27 MMOL/L Arterial Blood Total CO2 20.3 L 21.0-31.0 MMOL/L Arterial Blood Oxygen Saturation 47 L 94-100 % Arterial Blood Base Excess -6.7 L -2.5-2.5 MMOL/L Farhat Test POSITIVE Blood Gas Ventilator Setting YES Blood Gas Inspired Oxygen 100 Test 07/29/20 03:00 07/29/20 03:40 Range/Units Urine Color DARK YELLOW Urine Clarity CLOUDY Urine pH 5.5 5-9 Urine Specific [place] >=1.030 1.016-1.022 Urine Protein 2+ H NEGATIVE Urine Glucose (UA) 2+ H NEGATIVE Urine Ketones 1+ H NEGATIVE Urine Nitrite NEGATIVE NEGATIVE Urine Bilirubin 2+ H NEGATIVE Urine Urobilinogen 1.0 < = 1.0 MG/DL Urine Leukocyte Esterase NEGATIVE NEGATIVE Urine RBC (Auto) 3+ H NEGATIVE Urine RBC 10-25 H /HPF Urine WBC 2-5 /HPF Urine Squamous Epithelial Cells 0-2 /HPF Urine Crystals PRESENT H /LPF Urine Amorphous Sediment LARGE ALEX URATES H /LPF Urine Bacteria MODERATE H /HPF Urine Casts PRESENT /LPF Urine Hyaline Casts 5-10 H /LPF Urine Mucus NEGATIVE /LPF Urine Culture Indicated CULTURE PENDING Lactic Acid Level 1.47 0.50-2.00 MMOL/L (VAL GALINDO) My Orders Orders - VAL GALINDO Lactated Ringers (Lr 1000 Ml Iv Solution (07/29/20 07:00) Chest 1 View, Ap/Pa Only (07/29/20 08:05) Etomidate Injection (Amidate Injection) (07/29/20 01:24) Fentanyl Injection (Sublimaze Injection (07/29/20 01:24) Midazolam Injection (Versed Injection) (07/29/20 01:24) Rocuronium 5 Ml Syringe (Rocuronium 5 Ml (07/29/20 01:24) Succinylcholine Injection (Succinylcholi (07/29/20 01:24) Ns Iv 500 Ml (Sodium Chloride 0.9%) (07/29/20 09:35) (VAL GALINDO) Medications Given in ED Current Medications Medications Dose Ordered Sig/Alyson Route Start Time Stop Time Status Last Admin Dose Admin Dexamethasone Sodium Phosphate 6 mg ONCE ONCE IV 07/29/20 03:00 07/29/20 03:03 DC 07/29/20 03:17 6 MG Etomidate 20 mg STK-MED ONCE .ROUTE 07/29/20 01:28 07/29/20 01:34 DC 07/29/20 01:49 20 MG Etomidate 20 mg STK-MED ONCE .ROUTE 07/29/20 01:54 07/29/20 01:59 DC 07/29/20 01:59 20 MG Piperacillin Sod/ Tazobactam Sod 4.5 gm/Sodium Chloride 100 ml @ 200 mls/hr ONCE ONCE IV 07/29/20 03:00 07/29/20 03:29 DC 07/29/20 03:18 200 MLS/HR Sodium Chloride 1,000 ml @ ud STK-MED ONCE .ROUTE 07/29/20 01:30 07/29/20 01:35 DC 07/29/20 01:15 1,000 MLS/HR (VAL GALINDO) Vital Signs/I&O 07/29/20 07/29/20 07/29/2007/29/20 02:56 03:22 04:43 05:20 Temp 39.7 37.6 Pulse 67 98 87 93 Resp 22 B/P (MAP) 103/58 (73) 175/87 75/45 105/57 Pulse Ox 64 97 O2 Delivery Non Rebreather Mechanical Ventilator 07/29/20 07/29/20 07/29/20 07/29/20 05:26 05:42 06:38 07:36 Temp 37.1 Pulse 92 89 85 84 Resp 24 22 B/P (MAP) 96/60 137/68 (91) 138/67 Pulse Ox 90 100 O2 Flow Rate 80.00 FiO2 100 07/29/20 07/29/20 07:40 10:22 Pulse 85 75 Resp 22 B/P (MAP) 112/61 Pulse Ox 100 FiO2 80 (VAL GALINDO) Vital Signs/I&O Capillary Refill : Less Than 3 Seconds (TIM PEARSON MD) Blood Pressure Mean: 73 Progress Note #1: Time: 04:24 Progress Note Patient was placed on BiPAP to bridge him over to intubation. Septic workup was pursued. Patient was intubated with much difficulty. See intubation note. Vital signs are present at this time. Patient received a liter of IV normal saline. After discussion with Dr. Bennett, he was also given Zosyn, dexamethasone, and Lovenox. Case was also discussed with Dr. West due to the elevated troponin. EICU was consulted. Admission orders were prepared. Patient was set to transfer to the ICU but eICU called back after reviewing old notes and recommended we attempted to transfer to [facility] where his renal transplant was performed. This patient is complicated due to his chronic illnesses, history of transplant and immunosuppression, and his failure of therapy with convalescent plasma and remdesivir. I am awaiting a call back from the triage coordinator. Progress Note #2: Time: 06:23 Progress Note Patient was accepted for transfer by Dr. Manzo at [facility]. Unfortunately, no helicopters are flying at this time due to thick fog. They expect to the fog to burn off in about 2 hours and we'll do another whether check at that time. In the meantime patient has required a low-dose of Levophed on the drip. It is also noted that he has had poor urine output. Because of his hypotension and p oor urine output, a second liter of IV fluid is being administered. Patient received a dose of Zosyn for treatment of possible secondary pneumonia. [facility] requested we added vancomycin to the antibiotic therapy. Despite adjusting ventilator settings, patient continued to have periods of hypoxia. We prone to the patient onto his ventral side which greatly improved his oxygenation. ET tube was also advanced 2 cm to 25 cm at the gums prior to pronating. Care of this patient is being transferred to Dr. Galindo at this time. Patient received Lovenox due to markedly elevated d-dimer. Care of the patient was transferred to Dr. Galindo at this time. (TIM PEARSON MD) Progress Note #1: Progress Note Assume care of the patient at shift change. I have examined the patient and he has coarse lung sounds but is maintaining 100% sats using FiO2 of 100 PEEP 17 with tidal volume of 550 and rate of 22. We decreased his FiO2 to 80%. Patient continues tolerate this with 100% sats. His IV sites peripherally are acceptable. He has Levophed running and propofol for sedation. He was having some restlessness so we gave him 5 of Versed and instructed nursing to suction. He is currently in the prone position and tolerating this well. ET tube was a 7.5 at 25 cm at the lips. Breath sounds are symmetric. His IV antibiotics have completed. He has received 2 L of IV fluids. He has put out 125 cc of turbid orange urine. He has put out 0.26 mL/kg per hour. Plan to keep fluids going at a gentle 150 an hour to support improving his kidney function without causing severe pulmonary edema. Propofol's at 55 and if we need more sedation then we would add precedex. Current core temperature is 37.1. He has received Lovenox and antibiotics. Lactate is improving. He is in strong need of a central line. If we need to press the issue of a central line then we will put him back in the supine position and perform it. Otherwise we will wait until it is time to take him out of prone. Progress Note #2: Time: 08:08 Progress Note Suction did not produce much from his lungs this time. He was repositioned for comfort and new padding was placed to reduce the pressure on his pressure points. Levophed was reduced 0.1 mcg/kg/m and his blood pressure is 115/63. Oxygen sats still 100% so his FiO2 was reduced to 0.70. His PEEP was reduced from 17 down to 15 cm water pressure. Tidal volume still 550 with a rate of 22. We will update the family member Tanisha. Blood bank has convalescent plasma available for him. We will consult with the laborer construction or leak gang at [facility] to see if they want us to give him this. Chest x-ray showed ET tube needed advanced. It was 23 at the [facility]. When he was intubated it was 26 at the [facility]. We advanced it back to 26 at the [facility] and we'll obtain a subsequent chest x-ray. Propofol at 55 mcg/kg/m. Helicopter called to let us know to be another hour before they would fly due to fog. Patient is still not stable enough to go by ground ambulance. Progress Note #3: Time: 09:20 Progress Note Manager Heart Failure recommends giving convalescent plasma. we are going to go ahead and start that. Patient is stable and blood pressure is 125/70 so we reduced his Levophed to 0.08 micrograms per kilogram per minute. [employer] advises us it will be 11:00 before they can fly so we called a different company, [employer] and they can be here in 45 minutes using a instrument equipped helicopter. Progress Note #4: Time: 10:27 Progress Note Blood pressure was getting up to 135 systolic so we decreased his Levophed to 0.05 mcg/kg/m. This occurred pressure is now 122/68. Patient has oxygen sats of 100% on FiO2 of 70. Still in prone position. Helicopter from [employer] is here to transport him to [facility]. (VAL GALINDO) ECG Initial ECG Impression Date: Jul 29, 2020 Initial ECG Impression Time: 03:50 Initial ECG Rate: 95 Initial ECG Rhythm: Normal Sinus Initial ECG Intervals: Normal Comment Normal sinus rhythm with no ST elevation or depression. No abnormal intervals or axis deviation. (TIM PEARSON MD) Diagnostic Imaging Diagonstic Imaging: Xray Plain Films/CT/US/NM/MRI: chest Comments Scattered bilateral patchy infiltrates. X-ray viewed by me and report not yet available. (TIM PEARSON MD) Diagonstic Imaging: Xray Plain Films/CT/US/NM/MRI: chest Comments [facility] [place], [place] NAME: CONNER DOWD MED REC#: [id number] PT STATUS: REG ER : 1955 PHYSICIAN: TIM PEARSON MD ADMIT DATE: 07/29/20/ER Draft Date of Exam:07/29/20 CHEST 1 VIEW, AP/PA ONLY HISTORY: Respiratory distress, COVID positive, sepsis, ET and OG tube placement COMPARISON: 07/21/2020 TECHNIQUE: Frontal view chest FINDINGS: The endotracheal tube is approximately 8.7 cm above the zainab. An enteric tube crosses the [id number]-[id number]. There is elevation of the right hemidiaphragm which appears unchanged. There are increasing airspace opacities throughout the lungs bilaterally. The cardiac silhouette is normal in size. No pneumothorax or pleural effusion is seen. IMPRESSION: 1. The endotracheal tube is approximately 8.7 cm above the zainab. Consider 3 cm of advancement if not already adjusted. 2. Increased airspace opacities throughout the lungs bilaterally, likely due to infection. Report was called to Christa/TAMARA [facility] ER by juanita at 7:55AM. Dictated on workstation # [id number] Dict: 07/29/20 0742 Trans: 07/29/20 0754 [id number] Interpreted by: ANNIE GARCIA MD Electronically signed by: Reviewed: Reviewed by Me Diagonstic Imaging: Xray Plain Films/CT/US/NM/MRI: chest Comments ET tube within 3 cm of the zainab in good placement. Good aeration bilateral lungs. No other interval changes. [facility] [place] [place] NAME: CONNER DOWD MED REC#: [id number] PT STATUS: REG ER : 1955 PHYSICIAN: VAL GALINDO MD ADMIT DATE: 07/29/20/ER Draft Date of Exam:07/29/20 CHEST 1 VIEW, AP/PA ONLY INDICATION: ET tube advancement. FINDINGS: An AP radiograph was performed with the patient in prone position. The ET tube tip projects over the mid thoracic trachea in good alignment. The OG catheter is in the stomach. There are bilateral pulmonary opacities, greater right than left, suggestive of pneumonia and showing no substantial change when differing technique is taken into account. IMPRESSION: Extensive bilateral infiltrates, elevated right diaphragm, and repositioning of the ET tube in the mid trachea in good alignment. No adverse development. Dictated on workstation # [id number] Dict: 07/29/20 0834 Trans: 07/29/20 0837 [id number] Interpreted by: YENNIFER GODINEZ Electronically signed by: Reviewed: Reviewed by Me (VAL GALINDO) Critical Care Note Critical Care Start Time: 01:23 (TIM PEARSON MD) Departure Communication (Admissions) Time/Spoke to Admitting Phy: 02:50 Dr. Fofana for central line placement at 02:37 Dr. West for elevated troponin at 03:07 (TIM PEARSON MD) Impression Primary Impression: Respiratory failure Qualified Codes: J96.91 - Respiratory failure, unspecified with hypoxia Additional Impressions: COVID-19 Acute kidney injury Pneumonia Qualified Codes: J18.9 - Pneumonia, unspecified organism Elevated d-dimer Elevated troponin Hyperglycemia Disposition: 02 XFER SHT-TRM HOSP Condition: Critical Transfer Transfer Reason: Exceeds level of care Time Spoke to Accepting Phy: 05:05 Transfer Progress Notes Transfer accepted by Dr. Manzo at 05:05. Transfer Facility: [facility] Method of Transfer: Air (TIM PEARSON MD) Departure-Patient Inst. Referrals: [facility] (PCP/Family) Primary Care Physician TIM PEARSON MD Jul 29, 2020 03:12 VAL GALINDO Jul 29, 2020 06:32
[2020-07-29] MEDS ORDERED: ENOXAPARIN 80 MG/0.8 ML (LOVENOX) SYR SC ONE (03:15)
[2020-07-29 03:17] LABS: BILIRUBIN,URINE 2+ (NEGATIVE); CLARITY,URINE CLOUDY; COLOR,URINE DARK YELLOW; GLUCOSE, URINE (UA) 2+ (NEGATIVE); KETONES,URINE 1+ (NEGATIVE); LEUKOCYTE ESTERASE ,URINE NEGATIVE (NEGATIVE); NITRITE,URINE NEGATIVE (NEGATIVE); PH,URINE 5.5 (5-9); PROTEIN,URINE 2+ (NEGATIVE)
[2020-07-29] MEDS ORDERED: LACTATED RINGERS 1,000 ML IV ONE (03:29)
[2020-07-29] MEDS ORDERED: REMDESIVIR INJ (NON-FORMULARY) 100 MG in NS (IVPB) 230 ML IV SCH (03:30)
[2020-07-29] MEDS ORDERED: REMDESIVIR INJ (NON-FORMULARY) 200 MG in NS (IVPB) 210 ML IV ONE (03:30)
[2020-07-29 03:34] LABS: AMORPHOUS SEDIMENT,UR LARGE AMOR URATES /LPF; BACTERIA,URINE MODERATE /HPF; SQUAMOUS EPITHELIAL CELL,UR 0-2 /HPF
[2020-07-29] MEDS ORDERED: NOREPINEPHRINE 4 MG/250 ML 250 ML IV SCH (04:15)
[2020-07-29] MEDS ORDERED: LACTATED RINGERS 1,000 ML IV SCH ×2 (04:15→07:00)
[2020-07-29] MEDS ORDERED: fentaNYL INJECTION 100 MCG/2 ML AMP IVP ONE (05:00)
[2020-07-29 05:26] VITALS: BP 117/64
[2020-07-29] MEDS: VANCOMYCIN INJECTION 750 MG in NS (IVPB) 250 ML IV SCH ×2 (05:26→07:43)
[2020-07-29] MEDS ORDERED: NS IV 1000 ML 1,000 ML IV SCH (05:43)
[2020-07-29 06:38] VITALS: BP 137/68
--- NOTE | 2020-07-29 07:37 | NUR ---
[employer] [employer] CALLED ET STATES IT WILL BE 1.[address] TO [address] PEARL NOTIFIED ET WILL CONTINUE TO KEEP THEM ON STANDBY.
[2020-07-29 07:40] VITALS: BP 141/75
--- NOTE | 2020-07-29 07:45 | NUR ---
PT REPOSITION. ET TUBE MOVED TO 26@ GUMS. PEEP DECREASED TO 15
--- NOTE | 2020-07-29 07:54 | NUR ---
0.1mc/kg/min=32.8ml/hr as ordered.
--- NOTE | 2020-07-29 07:55 | Diagnostic Imaging Report ---
HISTORY: Respiratory distress, COVID positive, sepsis, ET and OG tube placement COMPARISON: 07/21/2020 TECHNIQUE: Frontal view chest FINDINGS: The endotracheal tube is approximately 8.7 cm above the zainab. An enteric tube crosses the [id number]-cvuo. There is elevation of the right hemidiaphragm which appears unchanged. There are increasing airspace opacities throughout the lungs bilaterally. The cardiac silhouette is normal in size. No pneumothorax or pleural effusion is seen. IMPRESSION: 1. The endotracheal tube is approximately 8.7 cm above the zainab. Consider 3 cm of advancement if not already adjusted. 2. Increased airspace opacities throughout the lungs bilaterally, likely due to infection. Report was called to Christa/TAMARA [facility] ER by dominique at 7:55AM. Dictated by: Dictated on workstation # [id number]
--- NOTE | 2020-07-29 08:38 | Diagnostic Imaging Report ---
INDICATION: ET tube advancement. FINDINGS: An AP radiograph was performed with the patient in prone position. The ET tube tip projects over the mid thoracic trachea in good alignment. The OG catheter is in the stomach. There are bilateral pulmonary opacities, greater right than left, suggestive of pneumonia and showing no substantial change when differing technique is taken into account. IMPRESSION: Extensive bilateral infiltrates, elevated right diaphragm, and repositioning of the ET tube in the mid trachea in good alignment. No adverse development. Dictated by: Dictated on workstation # [id number]
[2020-07-29] MEDS ORDERED: PIPERACILLIN/TAZO 4.5 GM/NS 100 ML IV SCH ×2 (09:00)
--- NOTE | 2020-07-29 09:08 | NUR ---
IV LEVOPHED DECREASED TO .08MC/KG/MIN
--- NOTE | 2020-07-29 09:19 | NUR ---
RADHA CALDERON TO COME GET PT TO PT IN APPROX 45 MIN
--- NOTE | 2020-07-29 09:30 | NUR ---
REPORT TO FRANKLIN MCDONALD FROM . UPDATED ON MED FLIGHT FROM [facility] TRANSFER
[2020-07-29] MEDS ORDERED: NS IV 500 ML 500 ML ONE (09:35)
--- NOTE | 2020-07-29 10:13 | NUR ---
NOREPPI DECREASED TO 0.05MC/KG/MIN
--- NOTE | 2020-07-29 10:27 | NUR ---
FLIGHT CREW HERE FOR TRANSFER
[2020-07-29 10:30] VITALS: BP 121/65
[2020-07-29] MEDS ORDERED: NS (IVPB) 0 ML ONE (10:36)
[2020-07-29] MEDS ORDERED: ENOXAPARIN 40 MG/0.4 ML (LOVENOX) SYR SC SCH (15:00)
== END 2020-07-29 11:04 | disposition short-term general hospital (02) ==
LOC: EDUNIT# 01:22 → ER 01:23 → ICU 03:09 → UNDOADMIN 03:09 → ER 11:04
DX: U07.1 COVID-19 (principal); J12.89 Other viral pneumonia; J96.91 Respiratory failure, unspecified with hypoxia; N17.9 Acute kidney failure, unspecified; R79.1 Abnormal coagulation profile; R79.89 Other specified abnormal findings of blood chemistry; E11.65 Type 2 diabetes mellitus with hyperglycemia; I25.10 Atherosclerotic heart disease of native coronary artery without angina pectoris; E78.00 Pure hypercholesterolemia, unspecified; E11.40 Type 2 diabetes mellitus with diabetic neuropathy, unspecified; Z99.81 Dependence on supplemental oxygen; Z94.0 Kidney transplant status; Z79.82 Long term (current) use of aspirin; Z79.4 Long term (current) use of insulin; Z79.52 Long term (current) use of systemic steroids; Z87.891 Personal history of nicotine dependence; Z86.73 Personal history of transient ischemic attack (TIA), and cerebral infarction without residual deficits
CPT/HCPCS: 71045; 80053; 80197; 81000; 82805; 82962; 83605; 83615; 84145; 84484; 85007; 85027; 85379; 85610; 85730; 86141; 86900; 86901; 87040; 87088; 93005; 94002; P9017; 36415; 99291